=== PATIENT | female | born 1950 | race African-American/Black ===

== ENCOUNTER 2019-11-16 09:42 | Outpatient (REF) | payer MEDICARE, SELFPAY ==
[2019-11-16 11:29] LABS: Estimated Average Glucose 143 mg/dL; Hemoglobin A1c % 6.6 %
[2019-11-16 11:49] LABS: Alanine Aminotransferase 21 U/L (0-31); Albumin Level 4.2 g/dL (3.5-5.0); Alkaline Phosphatase 58 U/L (39-117); Anion Gap 13 (12-20); Aspartate Amino Transferase 24 U/L (5-31); Bilirubin Total 0.3 mg/dL (0.0-1.0); Blood Urea Nitrogen 21 mg/dL (9-16); Calcium 9.6 mg/dL (8.4-10.2); Carbon Dioxide 28 mmol/L (22-29); Chloride 106 mmol/L (96-108); Cholesterol 179 mg/dL; Estimated Glomerular Filt Rate 48; Glucose Fasting 115 mg/dL (60-99); HDL Cholesterol 78 mg/dL; LDL Cholesterol Calculated 89 mg/dl; Potassium 4.5 mmol/l (3.3-5.1); Sodium 142 mmol/L (135-145); Total Protein 6.8 g/dL (6.5-8.0); Triglycerides 62 mg/dL
== END 2019-11-16 09:43 | disposition home or self-care (01) ==
LOC: HO.HMGCLDS 09:42
PROVIDERS: PCP Nurse Practitioner Family; Visit Provider Nurse Practitioner Family
DX: E11.9 Type 2 diabetes mellitus without complications (principal)
CPT/HCPCS: 36415; 80053; 80061; 83036

== ENCOUNTER → 2020-01-04 15:08 | Outpatient (BNVA) | payer MEDICARE, SELFPAY | PROVIDERS: PCP Nurse Practitioner Family; Visit Provider Internal Medicine | DX: R07.2 Precordial pain (principal); I10 Essential (primary) hypertension; E11.8 Type 2 diabetes mellitus with unspecified complications; Z79.82 Long term (current) use of aspirin; Z79.84 Long term (current) use of oral hypoglycemic drugs; Z79.899 Other long term (current) drug therapy | CPT/HCPCS: 93005; 99212 ==

== ENCOUNTER → 2020-03-08 13:34 | Outpatient (BNVA) | payer MEDICARE, SELFPAY | PROVIDERS: PCP Nurse Practitioner Family; Visit Provider Internal Medicine Endocrinology, Diabetes & Metabolism | DX: E11.9 Type 2 diabetes mellitus without complications (principal); I10 Essential (primary) hypertension; E78.5 Hyperlipidemia, unspecified; E66.3 Overweight | CPT/HCPCS: 82947; 99212 ==

== ENCOUNTER 2020-05-10 07:59 | Outpatient (REF) | payer MEDICARE, SELFPAY ==
[2020-05-10 11:40] LABS: Alanine Aminotransferase 15 U/L (0-31); Alkaline Phosphatase 59 U/L (39-117); Anion Gap 14 (12-20); Aspartate Amino Transferase 19 U/L (5-31); Bilirubin Total 0.3 mg/dL (0.0-1.0); Blood Urea Nitrogen 12 mg/dL (9-16); Calcium 9.2 mg/dL (8.4-10.2); Carbon Dioxide 27 mmol/L (22-29); Chloride 107 mmol/L (96-108); Estimated Glomerular Filt Rate 56; Glucose Fasting 112 mg/dL (60-99); Potassium 4.4 mmol/L (3.3-5.1); Sodium 144 mmol/L (135-145); Total Protein 6.6 g/dL (6.5-8.0)
[2020-05-10 11:59] LABS: Creatinine Urine 139.02 mg/dL; Microalbum/Creatinine Ratio Ur 3.5 ug/mg cr
== END 2020-05-10 08:00 | disposition home or self-care (01) ==
LOC: HO.HMGCLDS 07:59
PROVIDERS: PCP Nurse Practitioner Family; Visit Provider Internal Medicine Endocrinology, Diabetes & Metabolism
DX: E11.9 Type 2 diabetes mellitus without complications (principal); R07.2 Precordial pain
CPT/HCPCS: 36415; 80053; 82043

== ENCOUNTER → 2020-05-23 11:03 | Outpatient (BNVA) | payer MEDICARE, SELFPAY | PROVIDERS: PCP Nurse Practitioner Family; Visit Provider Internal Medicine | DX: R07.2 Precordial pain (principal); E11.8 Type 2 diabetes mellitus with unspecified complications; I10 Essential (primary) hypertension | CPT/HCPCS: 99212 ==

== ENCOUNTER 2020-07-02 13:30 | Outpatient (REF) | payer MEDICARE, SELFPAY ==
[2020-07-02 17:07] LABS: Glucose Urine UA NEG (NEG); Leukocyte Esterase Urine NEG (NEG); Nitrite Urine NEG (NEG); PH 5.5 (5.0-8.0); Urine Blood NEG (NEG); Urine Ketones NEG (NEG); Urine Protein NEG (NEG-TRACE)
[2020-07-02 17:37] LABS: Creatinine Urine 100.51 mg/dL; Microalbumin Urine < 5.0 mg/L
[2020-07-02 17:39] LABS: Alanine Aminotransferase 21 U/L (0-31); Albumin Level 4.3 g/dL (3.5-5.0); Alkaline Phosphatase 57 U/L (39-117); Anion Gap 13 (12-20); Aspartate Amino Transferase 24 U/L (5-31); Bilirubin Total 0.4 mg/dL (0.0-1.0); Blood Urea Nitrogen 15 mg/dL (9-16); Carbon Dioxide 28 mmol/L (22-29); Chloride 104 mmol/L (96-108); Cholesterol 190 mg/dL; Estimated Glomerular Filt Rate 57; Glucose Fasting 102 mg/dL (60-99); HDL Cholesterol 79 mg/dL; LDL Cholesterol Calculated 99 mg/dl; Potassium 4.1 mmol/L (3.3-5.1); Sodium 141 mmol/L (135-145); Total Protein 7.2 g/dL (6.5-8.0); Triglycerides 64 mg/dL
[2020-07-02 17:58] LABS: Appearance Urine CLEAR; Color Urine YELLOW
[2020-07-02 18:00] LABS: TSH reflex Free T4 0.67 uIU/mL (0.32-4.0)
[2020-07-02 18:38] LABS: RBC Urine 0 /HPF (0); Squamous Epithelial Cell Urine 1+ /LPF; WBC Urine 0 /HPF (0-4)
[2020-07-03 07:45] LABS: Estimated Average Glucose 143 mg/dL; Hemoglobin A1c % 6.6 %
== END 2020-07-02 13:31 | disposition home or self-care (01) ==
LOC: HO.HMGCLDS 13:30
PROVIDERS: PCP Nurse Practitioner Family; Visit Provider Nurse Practitioner Family
DX: Z00.00 Encounter for general adult medical examination without abnormal findings (principal); E11.8 Type 2 diabetes mellitus with unspecified complications
CPT/HCPCS: 36415; 80053; 80061; 81001; 82043; 83036; 84443; 87086

== ENCOUNTER 2020-07-24 09:17 | Outpatient (REF) | payer MEDICARE, SELFPAY ==
[2020-07-25 09:39] LABS: BV Int Neg Control Negative (Negative); BV Int Pos Control Positive (Positive)
[2020-07-27 04:27] LABS: HPV mRNA E6/E7 rflx Not Detected (Not Detected)
== END 2020-07-24 09:18 | disposition home or self-care (01) ==
LOC: HO.LAB 09:17
PROVIDERS: PCP Nurse Practitioner Family; Visit Provider Obstetrics & Gynecology
DX: Z01.419 Encounter for gynecological examination (general) (routine) without abnormal findings (principal); Z11.51 Encounter for screening for human papillomavirus (HPV); N94.9 Unspecified condition associated with female genital organs and menstrual cycle
CPT/HCPCS: 81003; 87480; 87510; 87624; 87660; 88142

== ENCOUNTER → 2020-08-06 08:48 | Outpatient (BNVA) | payer MEDICARE, SELFPAY | PROVIDERS: PCP Nurse Practitioner Family; Visit Provider Obstetrics & Gynecology | DX: N95.8 Other specified menopausal and perimenopausal disorders (principal) | CPT/HCPCS: 99212 ==

== ENCOUNTER → 2020-09-03 08:18 | Outpatient (BNVA) | payer MEDICARE, SELFPAY | PROVIDERS: PCP Nurse Practitioner Family; Visit Provider Internal Medicine Endocrinology, Diabetes & Metabolism | DX: E11.9 Type 2 diabetes mellitus without complications (principal); I10 Essential (primary) hypertension; E78.5 Hyperlipidemia, unspecified; E66.3 Overweight | CPT/HCPCS: 82947; 99212 ==

== ENCOUNTER 2020-11-06 11:54 | Outpatient (REF) | payer MEDICARE, SELFPAY ==
--- NOTE | ~2020-11-06 | MM_ITS ---
EXAMINATION: BONE DENSITOMETRY CLINICAL INDICATION: Asymptomatic menopausal state. COMPARISON: Previous BD dated 08/31/2017 and baseline BD dated 08/29/2015. TECHNIQUE: Using a Scoopshot DXA System (software version: 13.1) manufactured by [employer], dual-energy x-ray absorptiometry was performed of the spine and left hip. The images are of good technical quality. Summary results are attached. FINDINGS: AP SPINE L1-L4: Current: BMD 1.518 g/cm2, Z-score 3.2, T-score 2.8, normal, 2.7% increase from previous, 0.6% decrease from baseline (<5% change is not significant). Prior: BMD 1.478 g/cm2. Baseline: BMD 1.527 g/cm2. LEFT FEMUR, NECK: Current: BMD 1.074 g/cm2, Z-score 0.7, T-score 0.3, normal. Prior: BMD 1.132 g/cm2. Baseline: BMD 1.059 g/cm2. LEFT FEMUR, TOTAL: Current: BMD 1.141 g/cm2, Z-score 1.1, T-score 1.1, normal, 0.9% decrease from previous, 4.0% decrease from baseline (<5% change is not significant). Prior: BMD 1.151 g/cm2. Baseline: BMD 1.189 g/cm2. IDENTIFIED RISK FACTORS: Menopause. HISTORY OF FRACTURE: None listed. MEDICATIONS: Vitamin D. MM/XR DEXA axial skeleton IMPRESSION: 1. DIAGNOSIS: Normal bone density based on the lowest T-score value of 0.3 in the femoral neck applying World Health Organization criteria. 2. 10-YEAR FRACTURE RISK PREDICTION, FRAX: Major osteoporotic fracture (clinical spine, forearm, hip or shoulder) 2.9%. Hip fracture 0.1%. 3. Treatment Recommendations: NOF guidelines recommend consideration for treatment in postmenopausal women and men age 50 and older presenting with the following: -A hip or vertebral (clinical or morphometric) fracture. -T-score less than or equal to -2.5 at the femoral neck or spine after appropriate evaluation to exclude secondary causes. -Low bone mass at the hip or spine and a 10-year fracture probability by FRAX of greater than or equal to 3% for hip fracture or greater than or equal to 20% for major osteoporotic fracture based on the [place] adapted WHO algorithm. 4. Other Recommendations: All treatment decisions require clinical judgment and consideration of individual patient factors, including patient preferences, comorbidities, previous drug use, risk factors not captured in the FRAX model (e.g. frailty, falls, vitamin D deficiency, increased bone turnover, interval significant decline in bone density) and possible under or overestimation of fracture risk by FRAX. FUTURE SCAN RECOMMENDATION: People with diagnosed cases of osteoporosis or at high risk for fracture should have regular bone mineral density tests. For patients eligible for Medicare, routine testing is allowed once every 2 years. The testing frequency can be increased to one year for patients who have rapidly progressing disease, those who are receiving or discontinuing medical therapy to restore bone mass, or have additional risk factors.
--- NOTE | ~2020-11-06 | MM_ITS ---
EXAMINATION: MM SCREENING DIGITAL BREAST TOMOSYNTHESIS, BILATERAL CLINICAL INFORMATION: Screening. Asymptomatic. The lifetime risk of breast cancer based on the Tyrer-Cuzick Model is 9.5%. COMPARISON: Mammography: September 15, 2019 and studies dating back to November 23, 2013 TECHNIQUE: Digital breast tomosynthesis is performed in both the craniocaudal and mediolateral oblique views along with computer-aided detection (CAD). Synthesized 2D images are generated from the tomosynthesis. FINDINGS: There are scattered areas of fibroglandular density (ACR BI-RADS breast composition Category b). There are no significant masses, abnormal calcifications, or other abnormalities. MM/MM tomosynthesis screening BI IMPRESSION: There are no significant changes from prior study. ASSESSMENT: BI-RADS 1: Negative RECOMMENDATION: Routine annual mammography screening. This patient's information was entered into a reminder system with a target due date for their next mammogram.
== END 2020-11-06 11:55 | disposition home or self-care (01) ==
LOC: HO.MAMMO 11:54
PROVIDERS: Visit Provider Nurse Practitioner Family
DX: Z12.31 Encounter for screening mammogram for malignant neoplasm of breast (principal); Z13.820 Encounter for screening for osteoporosis; Z78.0 Asymptomatic menopausal state; Z79.899 Other long term (current) drug therapy
CPT/HCPCS: 77063; 77067; 77080

== ENCOUNTER 2020-11-15 10:04 | Outpatient (REF) | payer MEDICARE, SELFPAY ==
[2020-11-15 12:09] LABS: Appearance Urine CLEAR; Color Urine YELLOW; Glucose Urine UA NEG (NEG); Leukocyte Esterase Urine NEG (NEG); Nitrite Urine NEG (NEG); Specific Gravity - Urine 1.015 (1.005-1.025); Urine Blood NEG (NEG); Urine Ketones NEG (NEG); Urine Protein NEG (NEG-TRACE)
[2020-11-15 13:09] LABS: Alanine Aminotransferase 17 U/L (0-31); Albumin Level 4.3 g/dL (3.5-5.0); Alkaline Phosphatase 62 U/L (39-117); Anion Gap 13 (12-20); Aspartate Amino Transferase 25 U/L (5-31); Bilirubin Total 0.4 mg/dL (0.0-1.0); Blood Urea Nitrogen 15 mg/dL (9-16); Calcium 9.9 mg/dL (8.4-10.2); Carbon Dioxide 29 mmol/L (22-29); Chloride 104 mmol/L (96-108); Cholesterol 166 mg/dL; Estimated Glomerular Filt Rate 51; Glucose Fasting 127 mg/dL (60-99); HDL Cholesterol 78 mg/dL; LDL Cholesterol Calculated 77 mg/dl; Potassium 4.7 mmol/L (3.3-5.1); Sodium 141 mmol/L (135-145); Total Protein 7.2 g/dL (6.5-8.0); Triglycerides 58 mg/dL
[2020-11-15 13:11] LABS: TSH reflex Free T4 1.02 uIU/mL (0.32-4.0)
[2020-11-15 14:02] LABS: Estimated Average Glucose 146 mg/dL; Hemoglobin A1c % 6.7 %
== END 2020-11-15 10:05 | disposition home or self-care (01) ==
LOC: HO.HMGCLDS 10:04
PROVIDERS: PCP Nurse Practitioner Family; Visit Provider Nurse Practitioner Family
DX: E11.8 Type 2 diabetes mellitus with unspecified complications (principal)
CPT/HCPCS: 36415; 80053; 80061; 81003; 83036; 84443

== ENCOUNTER 2021-01-02 15:25 | Emergency (ER) | payer MEDICARE, OTHER, SELFPAY ==
[2021-01-02 16:35] VITALS: BP 109/49; PULSE 75; RESP 19; TEMP 36.3; O2SAT 98; BMI 32.9
[2021-01-02 17:04] LABS: MANUAL DIFF FLAG NO
[2021-01-02 17:12] LABS: Basophils Percent Auto 0.5 % (0-2); Eosinophils Absolute Auto 0.1 X10*3/uL (0.0-0.4); Eosinophils Percent Auto 1.4 % (0-4); Hematocrit 39.5 % (37.0-47.0); Hemoglobin 12.7 g/dl (12.0-16.0); Imm Gran Abs Auto 0.02 X10*3/uL (0.00-0.03); Imm Gran Pct Auto 0.3 % (0.0-0.4); Lymphocytes Absolute Auto 1.8 X10*3/uL (1.2-4.9); Mean Corpuscular HGB Conc 32.2 g/dl (31.0-35.0); Mean Corpuscular Hemoglobin 29.4 pg (27.0-33.0); Mean Corpuscular Volume 91.4 fL (80.0-98.0); Mean Platelet Volume 10.1 fL (9.4-12.3); Monocytes Absolute Auto 0.5 X10*3/uL (0.1-1.2); Monocytes Percent Auto 7.6 % (2-11); Neutrophils Percent Auto 62.2 % (45-73); Platelet Count 262 X10*3/uL (160-400); Red Blood Count 4.32 X10*6/uL (4.20-5.50); Red Cell Distribution Width 15.1 % (11.0-16.0); White Blood Count 6.5 X10*3/uL (4.8-10.8)
[2021-01-02 17:34] LABS: Alanine Aminotransferase 21 U/L (0-31); Albumin Level 4.1 g/dL (3.5-5.0); Alkaline Phosphatase 62 U/L (39-117); Anion Gap 11 (12-20); Aspartate Amino Transferase 28 U/L (5-31); Bilirubin Total 0.2 mg/dL (0.0-1.0); Blood Urea Nitrogen 13 mg/dL (9-16); Calcium 10.3 mg/dL (8.4-10.2); Carbon Dioxide 28 mmol/L (22-29); Chloride 104 mmol/L (96-108); Estimated Glomerular Filt Rate 53; Glucose Random 119 mg/dL (60-115); Potassium 4.1 mmol/L (3.3-5.1); Sodium 139 mmol/L (135-145); Total Protein 6.8 g/dL (6.5-8.0)
[2021-01-02 19:15] LABS: Appearance Urine CLEAR; Color Urine YELLOW; Glucose Urine UA NEG (NEG); Leukocyte Esterase Urine NEG (NEG); Nitrite Urine NEG (NEG); Specific Gravity - Urine <= 1.005 (1.005-1.025); Urine Blood NEG (NEG); Urine Ketones NEG (NEG); Urine Protein NEG (NEG-TRACE)
[2021-01-02 20:42] VITALS: BP 125/63; PULSE 74; RESP 18; TEMP 36.5; O2SAT 99
--- NOTE | 2021-01-02 21:00 | ED_ITS ---
HPI - Abdominal Pain General Chief Complaint: Abdominal Pain Stated Complaint: Abdominal pain Time Seen by Provider: 01/02/21 21:00 Source: patient Mode of arrival: ambulatory Limitations: no limitations History of Present Illness HPI narrative: patient with epigastric pain for one month was seen in [facility] and was sent into the ED. Patient had some weight loss. Patient had ectopic and history of appendicitis as her surgeries. MD elicited complaint: abdominal pain Onset (ago): month(s) Pain Consistency: intermittent Location: epigastric and RUQ Severity: mild Quality: cramping Associated symptoms: denies other symptoms Related Data Home Medications Medication Instructions Recorded Confirmed aspirin 81 mg tablet,delayed 81 mg PO DAILY 01/04/20 09/03/20 release estradiol 10 mcg vaginal tablet mcg VAGINAL 10/01/20 Previous Rx's Medication Instructions Recorded DomeeTouch Verio test strips (blood #300 ea NS 03/08/20 sugar diagnostic) lancets 33 gauge (OneTouch Delica #300 ea 03/08/20 Lancets) conjugated estrogens 0.625 mg/gram 0.625 mg VAGINAL 3XW 30 Days #30 g 05/20/20 vaginal cream (Premarin) fluticasone propionate 50 1 spray INTRANASAL DAILY #16 g 05/20/20 mcg/actuation nasal spray,suspension gabapentin 100 mg capsule 100 mg PO DAILY 30 Days #30 cap 07/22/20 estradiol 10 mcg vaginal insert 10 mcg VAGINAL DAILY 14 Days #8 08/06/20 insert ezetimibe 10 mg tablet 10 mg PO DAILY 90 Days #90 tab 09/03/20 pioglitazone 45 mg tablet 45 mg PO DAILY #90 tab 09/03/20 sitagliptin 50 mg-metformin ER 2 tab PO DAILY 90 Days #180 tab 09/03/20 1,000 mg tablet,extended release 24h mp hydrocortisone 2.5 % topical cream 1 appl MO BID PRN 14 Days #20 g 11/17/20 losartan 50 mg tablet 50 mg PO DAILY 90 Days #90 tab 11/29/20 pantoprazole 40 mg tablet,delayed 40 mg PO DAILY #20 tab 01/02/21 release (Protonix) Allergies Allergy/AdvReac Type Severity Reaction Status Date / Time Penicillins [PENICILLINS] Allergy Unknown UNKNOWN Verified 01/01/21 16:12 canagliflozin [Invokana] AdvReac Unknown unknown Verified 01/01/21 16:12 statins Allergy Unknown muscle Uncoded 07/02/20 13:10 aches Review of Systems Constitutional: Reports no additional constitutional complaints Eyes: Reports no additional eye complaints Denies dizziness Cardiovascular: Reports no additional cardiovascular complaints Respiratory: Reports as per HPI Gastrointestinal: Reports no additional gastrointestinal complaints Genitourinary: Reports no additional female genitourinary complaints Musculoskeletal: Reports no additional musculoskeletal complaints Skin/Breast: Denies rash Reports system reviewed and no additional complaints, except as documented, Denies dizziness and Denies Sensory deficit (Neuro) Psychiatric: Denies anxiety Physical Exam Vital Signs: Vital Signs: Last Vital Signs Temp 97.7 F 01/02/21 20:42 Pulse 74 01/02/21 20:42 Resp 18 01/02/21 20:42 BP 125/63 01/02/21 20:42 Pulse Ox 99 01/02/21 20:42 Body Mass Index 32.9 Const: General: healthy appearing Nutritional Appearance: average body habitus Orientation/consciousness: oriented to person and patient oriented x3 Limitations: no limitations HENMT: Head: Yes normal to inspection Ears: external ears normal General nose exam: Normal external nose present Mouth: Normal oral and palatal mucosa present and oropharynx normal Throat: Yes posterior oropharynx normal Eyes: General: appearance normal, both eyes and all related structures Neck: Other: supple Neck: Yes normal visual inspection Chest: Chest palpation & inspection: normal inspection of the chest Resp: Auscultation: clear to auscultation bilaterally Cardio: Jugular venous distension: no JVD Rate: regular rate Rhythm: regular rhythm Heart sounds: S1 normal heart sound present and S2 normal heart sound present GI: Other: nontender abdomen Inspection: Yes normal to inspection Palpation (GI): Soft to palpation, nontender and No hepatosplenomegaly present Auscultation: normal bowel sounds : General: Yes no CVA tenderness Back/Spine/Pelvis: Back: no CVA tenderness Skin: General skin exam: no rashes or lesions noted Neuro: General: oriented to person and patient oriented x3 Cranial nerves: Yes CN's II-XII intact bilaterally Motor exam (neuro): 5/5 motor strength present throughout Sensory Exam: No Sensory deficit (Neuro) Extrem: General: Yes normal to inspection Psych: Appearance: grossly normal Course Reevaluation(s) Reevaluation #1: bedside ultrasound negative for Gallstones. patient was recently on NSAIDs for dental work, possible gastritis, will treat with protonix Time: 21:14 MDM - Abdominal Pain Lab Data Result diagrams: 01/02/21 17:00 01/02/21 17:00 Labs: Lab Results 01/02/21 01/02/21 01/02/21 Range/Units 17:00 17:00 18:59 WBC 6.5 (4.8-10.8) X10*3/uL RBC 4.32 (4.20-5.50) X10*6/uL Hgb 12.7 (12.0-16.0) g/dl Hct 39.5 (37.0-47.0) % MCV 91.4 (80.0-98.0) fL MCH 29.4 (27.0-33.0) pg MCHC 32.2 (31.0-35.0) g/dl RDW 15.1 (11.0-16.0) % Plt Count 262 (160-400) X10*3/uL MPV 10.1 (9.4-12.3) fL Immature Gran % (Auto) 0.3 (0.0-0.4) % Neut % (Auto) 62.2 (45-73) % Lymph % (Auto) 28.0 (20-40) % [place] % (Auto) 7.6 (2-11) % Eos % (Auto) 1.4 (0-4) % Baso % (Auto) 0.5 (0-2) % Lymph # (Auto) 1.8 (1.2-4.9) X10*3/uL [place] # (Auto) 0.5 (0.1-1.2) X10*3/uL Eos # (Auto) 0.1 (0.0-0.4) X10*3/uL Baso # (Auto) 0.0 (0.0-0.2) X10*3/uL Abs Immat Gran (auto) 0.02 (0.00-0.03) X10*3/uL Absolute Neuts (auto) 4.0 (2.0-8.3) x10*3/uL Absolute Nucleated RBC 0.000 (0.0-0.012) X10*3/uL Nucleated RBC % (auto) 0.0 (0.0-0.2) /100WBC Sodium 139 (135-145) mmol/L Potassium 4.1 (3.3-5.1) mmol/L Chloride 104 (96-108) mmol/L Carbon Dioxide 28 (22-29) mmol/L Anion Gap 11 L (12-20) BUN 13 (9-16) mg/dL Creatinine 1.03 (0.5-1.4) mg/dL Estim Creat Clear Calc 51.0 Estimated GFR 53 Random Glucose 119 H (60-115) mg/dL Calcium 10.3 H (8.4-10.2) mg/dL Total Bilirubin 0.2 (0.0-1.0) mg/dL AST 28 (5-31) U/L ALT 21 (0-31) U/L Alkaline Phosphatase 62 (39-117) U/L Total Protein 6.8 (6.5-8.0) g/dL Albumin 4.1 (3.5-5.0) g/dL Urine Color YELLOW Urine Appearance CLEAR Urine pH 6.0 (5.0-8.0) Ur Specific [place] <= 1.005 (1.005-1.025) Urine Protein NEG (NEG-TRACE) MG/DL Urine Glucose (UA) NEG (NEG) MG/DL Urine Ketones NEG (NEG) MG/DL Urine Blood NEG (NEG) Urine Nitrite NEG (NEG) Ur Leukocyte Esterase NEG (NEG) Discharge Plan Discharge Clinical Impression: Gastritis Qualifiers: Gastritis type: unspecified gastritis Chronicity: unspecified Gastritis bleeding: without bleeding Qualified Code(s): K29.70 - Gastritis, unspecified, without bleeding Patient Disposition: Home, Self-Care Instructions: Gastritis (ED) Prescriptions: New pantoprazole [Protonix] 40 mg tablet,delayed release (DR/EC) 40 mg PO DAILY Qty: 20 RF: 0 No Action Premarin 0.625 mg/gram cream 0.625 mg vaginal 3XW 30 Days Qty: 30 RF: 1 fluticasone propionate 50 mcg/actuation spray,suspension 1 spray intranasal DAILY Qty: 16 RF: 1 gabapentin 100 mg capsule 100 mg PO DAILY 30 Days Qty: 30 RF: 3 hydrocortisone 2.5 % cream 1 appl MO BID PRN (Reason: skin irritation) 14 Days Qty: 20 RF: 1 losartan 50 mg tablet 50 mg PO DAILY 90 Days Qty: 90 RF: 1 estradiol 10 mcg tablet vaginal RF: 0 (DME) lancets [OneTouch Delica Lancets] 33 gauge misc See Rx Instructions .ROUTE .MEDSUPPLY Qty: 300 RF: 2 (DME) OneTouch Verio test strips Strip See Rx Instructions strip .ROUTE .MEDSUPPLY Qty: 300 RF: 3 aspirin 81 mg tablet,delayed release (DR/EC) 81 mg PO DAILY RF: 0 estradiol 10 mcg insert 10 mcg vaginal DAILY 14 Days Qty: 8 RF: 11 ezetimibe 10 mg tablet 10 mg PO DAILY 90 Days Qty: 90 RF: 1 pioglitazone 45 mg tablet 45 mg PO DAILY Qty: 90 RF: 2 sitagliptin-metformin 50-1,000 mg tablet, ER multiphase 24 hr 2 tab PO DAILY 90 Days Qty: 180 RF: 2 Referrals: Jacob Martinez FNP- [Primary Care Provider] - 1 week [facility] Past Medical History Medical History Diabetes type 2, controlled Dyslipidemia Essential hypertension Overweight (BMI 25.0-29.9) Type 2 diabetes mellitus with unspecified complications Surgical History History of appendectomy Hx of tubal ligation Family History Family History Father Heart disease Mother Heart disease Social History Social History Housing: House Alcohol intake: never Patient Tobacco Use Status: Never used Tobacco Advance Directives: No Advance Directives Information Provided: No Current occupational status: retired Gender identity: Female
[2021-01-02 21:58] VITALS: BP 117/58; PULSE 76; RESP 16; O2SAT 98
[2021-01-02] MEDS: Famotidine 20 MG TABLET PO (21:58)
== END 2021-01-02 22:00 | disposition home or self-care (01) ==
PROVIDERS: Emergency Provider Emergency Medicine; PCP Nurse Practitioner Family
DX: K29.70 Gastritis, unspecified, without bleeding (principal); R10.13 Epigastric pain; E11.9 Type 2 diabetes mellitus without complications; E78.5 Hyperlipidemia, unspecified; I10 Essential (primary) hypertension
CPT/HCPCS: 36415; 80053; 81003; 85025; 99283; 99284

== ENCOUNTER → 2021-03-10 09:18 | Outpatient (REF) | payer MEDICARE, OTHER, SELFPAY ==
--- NOTE | 2021-03-10 09:21 | CA_ITS ---
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 Normal LV systolic function with mild LVH with impaired relaxation filling pattern 2. Normal cardiac valvular Doppler 3. Normal RV systolic pressure 4. No gross pericardial effusion Findings Left Ventricle Normal left ventricular size and systolic function. There is mildly increased left ventricular wall thickness. The visually estimated ejection fraction is between 60-65%. Spectral Doppler is indicative of an impaired relaxation filling pattern. E/E prime ratio is between 8 and 15 consistent with indeterminate filling pressures. Right Ventricle Normal right ventricular cavity size and systolic function. Atria The left atrium is normal in size. There is no evidence of interatrial shunt. The right atrium is normal in size. Aortic Valve Normal aortic valve structure and function. There is no aortic valve stenosis. There is no aortic valve regurgitation. Mitral Valve Normal mitral valve structure and function. There is trace mitral valve regurgitation. There is no mitral valve stenosis. Pulmonic Valve The pulmonic valve is likely normal. Tricuspid Valve Normal tricuspid valve structure. There is trace tricuspid valve regurgitation. The right ventricular systolic pressure is normal. The right ventricular systolic pressure is 31 mmHg. Normal right atrial pressure. There is no evidence of pulmonary hypertension. Great Vessels All visible segments of the aorta are normal in size. The pulmonary artery was not well visualized. Venous The inferior vena cava is normal in size and collapses greater than 50% with inspiration. Pericardium/Pleural There is no evidence of pericardial effusion. Prior Study Comparison No significant change compared to prior study dated: 06/28/2018. Measurements 2D Linear Measurements IVSd: 1.24 0.6-0.9/0.6-1.0 cm LVIDd: 3.46 3.9-5.3/4.2-5.9 cm LVIDd Index: 1.85 2.4-3.2/2.2-3.1 cm/m2 LVIDs: 2.24 2.0-3.6 cm LVPWd: 1.28 0.7-1.1 cm Ao Root: 3.10 2.1-3.5 cm LA Diam: 3.40 2.7-3.8/3.0-4.0 cm LAIDs Index: 1.82 1.5-2.3 cm/m2 LV Mass: 179.32 67-162/88-224 g LV Mass Index: 95.89 43-95/49-115 g/m2 LVOT Diam: 2.00 3.0+(-)1.3 cm 2D Systolic Function EF 4C: 55.90 >55% EF 2C: 57.40 >55% EF BiP: 56.60 >55% Mitral Valve MV Pk E: 0.81 MV PK A: 0.99 MV Decel Time: 196.00 E/A: 0.80 E'Lateral: 7.40 E'Medial: 5.55 E/E' Med: 14.50 E/E' Lat: 10.90 PHT: 57.00 MVA PHT: 3.86 Decel [place]: 4.12 Aortic Valve AoV Pk Frankie: 1.46 AoV Mn Frankie: 0.91 AoV VTI: 0.32 AoV Pk Grad: 9.00 Aov Mn Grad: 4.00 RAJEEV Cont.VTI: 2.67 LVOT LVOT Pk Frankie: 1.11 LVOT Mn Frankie: 0.67 LVOT VTI: 0.27 LVOT Pk Grad: 5.00 LVOT Mn Grad: 2.00 LVOT Diam: 2.00 LVOT Area: 3.14 Diastolic Function MV Pk E: 0.81 MV Pk A: 0.99 E/A: 0.80 E'Medial: 5.55 E/E' Med: 14.50 E' Laterial: 7.40 E/E' Lat: 10.90 Right Ventricle TAPSE (mm): 24.00 TVS' Frankie: 12.00 Tricuspid Valve TR Pk Frankie: 2.63 TR Pk Grad: 28.00 RA Press: 3.00 RVSP: 31.00 Great Vessels Aorta Ao Root-2D: 3.10 2.0-3.7 cm Ao Asc: 3.10 2.1-3.4 cm Ao Arch: 3.40 Pulmonary Valve PV Pk Frankie: 1.09 Peak PV Grad: 5.00 Updated in Other Vendor System with Status of Final Jairon Blackburn MD electronically signed on 03/11/2021 8:58:50 AM with status of Final
== END ==
LOC: HO.CARD 09:18
PROVIDERS: Visit Provider Nurse Practitioner Family
DX: R01.1 Cardiac murmur, unspecified (principal)
CPT/HCPCS: 93306

== ENCOUNTER 2021-05-05 11:23 | Outpatient (REF) | payer MEDICARE, SELFPAY ==
[2021-05-05 14:06] LABS: Appearance Urine CLEAR; Color Urine YELLOW; Glucose Urine UA NEG (NEG); Leukocyte Esterase Urine NEG (NEG); Nitrite Urine NEG (NEG); Specific Gravity - Urine 1.025 (1.005-1.025); Urine Blood NEG (NEG); Urine Ketones NEG (NEG); Urine Protein NEG (NEG-TRACE)
[2021-05-05 14:21] LABS: Alanine Aminotransferase 16 U/L (0-31); Albumin Level 4.1 g/dL (3.5-5.0); Alkaline Phosphatase 57 U/L (39-117); Anion Gap 11 (12-20); Aspartate Amino Transferase 22 U/L (5-31); Bilirubin Total 0.4 mg/dL (0.0-1.0); Blood Urea Nitrogen 14 mg/dL (9-16); Carbon Dioxide 29 mmol/L (22-29); Chloride 104 mmol/L (96-108); Cholesterol 178 mg/dL; Estimated Glomerular Filt Rate 54; Glucose Fasting 114 mg/dL (60-99); HDL Cholesterol 71 mg/dL; LDL Cholesterol Calculated 92 mg/dl; Potassium 4.1 mmol/L (3.3-5.1); Sodium 140 mmol/L (135-145); Total Protein 6.9 g/dL (6.5-8.0); Triglycerides 77 mg/dL
[2021-05-05 14:45] LABS: TSH reflex Free T4 0.91 uIU/mL (0.32-4.0); Vitamin D 25-OH Total 48.9 ng/mL (>30)
== END 2021-05-05 11:24 | disposition home or self-care (01) ==
LOC: HO.HMGCLDS 11:23
PROVIDERS: Visit Provider Nurse Practitioner Family
DX: E11.9 Type 2 diabetes mellitus without complications (principal)
CPT/HCPCS: 36415; 80053; 80061; 81003; 82306; 84443

== ENCOUNTER 2021-07-04 16:42 | Outpatient (REF) | payer OTHER, SELFPAY | END 2021-07-04 16:43 | disposition home or self-care (01) | LOC: HO.LNP 16:42 | PROVIDERS: Visit Provider Internal Medicine | DX: N39.0 Urinary tract infection, site not specified (principal) | CPT/HCPCS: 87086 ==

== ENCOUNTER 2021-07-29 11:06 | Outpatient (REF) | payer MEDICARE, SELFPAY ==
[2021-07-29 13:41] LABS: Appearance Urine CLEAR; Color Urine STRAW; Glucose Urine UA NEG (NEG); Leukocyte Esterase Urine NEG (NEG); Nitrite Urine NEG (NEG); Specific Gravity - Urine <= 1.005 (1.005-1.025); Urine Blood NEG (NEG); Urine Ketones NEG (NEG); Urine Protein NEG (NEG-TRACE)
== END 2021-07-29 11:07 | disposition home or self-care (01) ==
LOC: HO.HMGCLDS 11:06
PROVIDERS: PCP Nurse Practitioner Family; Visit Provider Nurse Practitioner Family
DX: N30.90 Cystitis, unspecified without hematuria (principal)
CPT/HCPCS: 81003; 87086

== ENCOUNTER 2021-08-06 10:46 | Outpatient (REF) | payer MEDICARE, SELFPAY ==
[2021-08-07 08:38] LABS: BV Int Neg Control Negative (Negative); BV Int Pos Control Positive (Positive)
== END 2021-08-06 10:47 | disposition home or self-care (01) ==
LOC: HO.LAB 10:46
PROVIDERS: Visit Provider Advanced Practice Midwife
DX: N76.0 Acute vaginitis (principal); N94.9 Unspecified condition associated with female genital organs and menstrual cycle; R10.2 Pelvic and perineal pain
CPT/HCPCS: 81003; 87480; 87510; 87660; 99212

== ENCOUNTER 2021-08-13 09:15 | Outpatient (REF) | payer MEDICARE, SELFPAY ==
[2021-08-13 11:14] LABS: MANUAL DIFF FLAG NO
[2021-08-13 11:18] LABS: Basophils Absolute Auto 0.1 X10*3/uL (0.0-0.2); Basophils Percent Auto 0.8 % (0-2); Eosinophils Absolute Auto 0.1 X10*3/uL (0.0-0.4); Eosinophils Percent Auto 0.8 % (0-4); Hematocrit 40.3 % (37.0-47.0); Hemoglobin 12.9 g/dl (12.0-16.0); Imm Gran Abs Auto 0.03 X10*3/uL (0.00-0.03); Imm Gran Pct Auto 0.5 % (0.0-0.4); Lymphocytes Absolute Auto 1.6 X10*3/uL (1.2-4.9); Lymphocytes Percent Auto 24.7 % (20-40); Mean Corpuscular Hemoglobin 29.9 pg (27.0-33.0); Mean Corpuscular Volume 93.3 fL (80.0-98.0); Mean Platelet Volume 10.4 fL (9.4-12.3); Monocytes Absolute Auto 0.4 X10*3/uL (0.1-1.2); Monocytes Percent Auto 6.6 % (2-11); Neutrophils Absolute Auto 4.3 x10*3/uL (2.0-8.3); Neutrophils Percent Auto 66.6 % (45-73); Platelet Count 264 X10*3/uL (160-400); Red Blood Count 4.32 X10*6/uL (4.20-5.50); Red Cell Distribution Width 14.4 % (11.0-16.0); White Blood Count 6.5 X10*3/uL (4.8-10.8)
[2021-08-13 11:19] LABS: Appearance Urine CLEAR; Color Urine YELLOW; Glucose Urine UA NEG (NEG); Leukocyte Esterase Urine NEG (NEG); Nitrite Urine NEG (NEG); Specific Gravity - Urine 1.015 (1.005-1.025); Urine Blood NEG (NEG); Urine Ketones NEG (NEG); Urine Protein NEG (NEG-TRACE)
[2021-08-13 11:54] LABS: TSH reflex Free T4 1.04 uIU/mL (0.32-4.0)
[2021-08-13 11:59] LABS: Alanine Aminotransferase 22 U/L (0-31); Albumin Level 4.2 g/dL (3.5-5.0); Alkaline Phosphatase 63 U/L (39-117); Anion Gap 12 (12-20); Aspartate Amino Transferase 27 U/L (5-31); Bilirubin Total 0.3 mg/dL (0.0-1.0); Blood Urea Nitrogen 14 mg/dL (9-16); Calcium 10.1 mg/dL (8.4-10.2); Carbon Dioxide 30 mmol/L (22-29); Chloride 105 mmol/L (96-108); Cholesterol 171 mg/dL; Estimated Glomerular Filt Rate 52; Glucose Fasting 143 mg/dL (60-99); HDL Cholesterol 78 mg/dL; LDL Cholesterol Calculated 77 mg/dl; Potassium 4.3 mmol/L (3.3-5.1); Sodium 143 mmol/L (135-145); Triglycerides 82 mg/dL
[2021-08-13 12:02] LABS: Estimated Average Glucose 143 mg/dL; Hemoglobin A1c % 6.6 %
[2021-08-13 12:07] LABS: Creatinine Urine 111.51 mg/dL; Microalbumin Urine < 5.0 mg/L
== END 2021-08-13 09:16 | disposition home or self-care (01) ==
LOC: HO.HMGCLDS 09:15
PROVIDERS: PCP Nurse Practitioner Family; Visit Provider Nurse Practitioner Family
DX: E11.8 Type 2 diabetes mellitus with unspecified complications (principal)
CPT/HCPCS: 36415; 80053; 80061; 81003; 82043; 83036; 84443; 85025

== ENCOUNTER 2021-11-07 14:46 | Outpatient (REF) | payer MEDICARE, SELFPAY ==
--- NOTE | ~2021-11-07 | MM_ITS ---
EXAMINATION: MM SCREENING DIGITAL BREAST TOMOSYNTHESIS, BILATERAL CLINICAL INFORMATION: Screening. Asymptomatic. Family history breast cancer, sister. The lifetime risk of breast cancer based on the Tyrer-Cuzick Model is 6%. COMPARISON: Mammography: 11/06/2020, 09/15/2019, 05/31/2018 TECHNIQUE: Digital breast tomosynthesis is performed in both the craniocaudal and mediolateral oblique views along with computer-aided detection (CAD). Synthesized 2D images are generated from the tomosynthesis. FINDINGS: There are scattered areas of fibroglandular density (ACR BI-RADS breast composition Category b). There are no significant masses, abnormal calcifications, or other abnormalities. Parenchymal pattern is similar to prior studies. No developing density or architectural abnormality. The axilla and skin contours are unremarkable. MM/MM tomosynthesis screening BI IMPRESSION: No mammographic evidence of malignancy. ASSESSMENT: BI-RADS 1: Negative RECOMMENDATION: Routine annual mammography screening. This patient's information was entered into a reminder system with a target due date for their next mammogram.
== END 2021-11-07 14:47 | disposition home or self-care (01) ==
LOC: HO.MAMMO 14:46
PROVIDERS: PCP Nurse Practitioner Family; Visit Provider Nurse Practitioner Family
DX: Z12.31 Encounter for screening mammogram for malignant neoplasm of breast (principal)
CPT/HCPCS: 77063; 77067

== ENCOUNTER 2021-12-19 10:46 | Outpatient (REF) | payer MEDICARE, SELFPAY ==
[2021-12-19 13:59] LABS: MANUAL DIFF FLAG NO
[2021-12-19 14:04] LABS: Basophils Percent Auto 0.7 % (0-2); Eosinophils Percent Auto 0.7 % (0-4); Hematocrit 38.9 % (37.0-47.0); Hemoglobin 12.5 g/dl (12.0-16.0); Imm Gran Abs Auto 0.05 X10*3/uL (0.00-0.03); Imm Gran Pct Auto 0.8 % (0.0-0.4); Lymphocytes Absolute Auto 1.6 X10*3/uL (1.2-4.9); Lymphocytes Percent Auto 26.2 % (20-40); Mean Corpuscular HGB Conc 32.1 g/dl (31.0-35.0); Mean Corpuscular Hemoglobin 29.5 pg (27.0-33.0); Mean Corpuscular Volume 91.7 fL (80.0-98.0); Mean Platelet Volume 10.7 fL (9.4-12.3); Monocytes Absolute Auto 0.4 X10*3/uL (0.1-1.2); Monocytes Percent Auto 6.5 % (2-11); Neutrophils Absolute Auto 3.9 x10*3/uL (2.0-8.3); Neutrophils Percent Auto 65.1 % (45-73); Platelet Count 248 X10*3/uL (160-400); Red Blood Count 4.24 X10*6/uL (4.20-5.50); Red Cell Distribution Width 14.7 % (11.0-16.0)
[2021-12-19 14:17] LABS: Appearance Urine Clear; Color Urine Yellow; Glucose Urine UA Negative (Negative); Leukocyte Esterase Urine Negative (Negative); Nitrite Urine Negative (Negative); Urine Blood Negative (Negative); Urine Ketones Negative (Negative); Urine Protein Negative (Neg-Trace)
[2021-12-19 14:35] LABS: Alanine Aminotransferase 20 U/L (0-31); Albumin Level 4.3 g/dL (3.5-5.0); Alkaline Phosphatase 56 U/L (39-117); Anion Gap 15 (12-20); Aspartate Amino Transferase 26 U/L (5-31); Bilirubin Total 0.4 mg/dL (0.0-1.0); Blood Urea Nitrogen 16 mg/dL (9-16); Calcium 9.9 mg/dL (8.4-10.2); Carbon Dioxide 27 mmol/L (22-29); Chloride 103 mmol/L (96-108); Cholesterol 175 mg/dL; Estimated Glomerular Filt Rate 50; Glucose Fasting 122 mg/dL (60-99); HDL Cholesterol 81 mg/dL; LDL Cholesterol Calculated 83 mg/dl; Potassium 4.4 mmol/L (3.3-5.1); Sodium 141 mmol/L (135-145); Total Protein 6.9 g/dL (6.5-8.0); Triglycerides 55 mg/dL
[2021-12-19 14:47] LABS: TSH reflex Free T4 0.73 uIU/mL (0.32-4.0)
[2021-12-19 15:05] LABS: Estimated Average Glucose 137 mg/dL; Hemoglobin A1c % 6.4 %
== END 2021-12-19 10:47 | disposition home or self-care (01) ==
LOC: HO.HMGCLDS 10:46
PROVIDERS: PCP Nurse Practitioner Family; Visit Provider Nurse Practitioner Family
DX: E11.9 Type 2 diabetes mellitus without complications (principal)
CPT/HCPCS: 36415; 80053; 80061; 81003; 83036; 84443; 85025

== ENCOUNTER 2022-02-20 11:47 | Emergency (ER) | payer MEDICARE, OTHER, SELFPAY ==
--- NOTE | ~2022-02-20 | XR_ITS ---
EXAMINATION: XR CHEST CLINICAL INFORMATION: Chest pain COMPARISON: None TECHNIQUE: 2 views of the chest were obtained. FINDINGS: The lungs are well expanded. Mild elevation of the right hemidiaphragm. There is no focal consolidation, edema, or effusion. No pneumothorax. The cardiomediastinal silhouette is within normal limits. No acute osseous abnormality. Mild degenerative changes of the spine. XR/XR chest 2V IMPRESSION: Clear lungs.
[2022-02-20 12:05] VITALS: BP 133/68; PULSE 67; RESP 18; TEMP 36.5; O2SAT 98; BMI 34.7
--- NOTE | 2022-02-20 12:13 | ECG_ITS ---
Test Reason : CHEST PAIN Blood Pressure : / mmHG Vent. Rate : 074 BPM Atrial Rate : 074 BPM P-R Int : 152 ms QRS Dur : 078 ms QT Int : 344 ms P-R-T Axes : 052 001 035 degrees QTc Int : 381 ms Normal sinus rhythm Possible Left atrial enlargement Borderline ECG When compared with ECG of 29-MAY-2003 10:52, No significant change was found Referred By: Generic ED Physician Electronically Signed By:NIVIA MONTANA
[2022-02-20 12:39] LABS: MANUAL DIFF FLAG NO
[2022-02-20 12:40] LABS: Basophils Percent Auto 0.5 % (0-2); Eosinophils Absolute Auto 0.1 X10*3/uL (0.0-0.4); Eosinophils Percent Auto 0.8 % (0-4); Hematocrit 39.5 % (37.0-47.0); Hemoglobin 12.7 g/dl (12.0-16.0); Imm Gran Abs Auto 0.02 X10*3/uL (0.00-0.03); Imm Gran Pct Auto 0.3 % (0.0-0.4); Lymphocytes Absolute Auto 1.5 X10*3/uL (1.2-4.9); Lymphocytes Percent Auto 24.8 % (20-40); Mean Corpuscular HGB Conc 32.2 g/dl (31.0-35.0); Mean Corpuscular Hemoglobin 29.3 pg (27.0-33.0); Mean Corpuscular Volume 91.2 fL (80.0-98.0); Mean Platelet Volume 9.6 fL (9.4-12.3); Monocytes Absolute Auto 0.3 X10*3/uL (0.1-1.2); Monocytes Percent Auto 5.4 % (2-11); Neutrophils Absolute Auto 4.2 x10*3/uL (2.0-8.3); Neutrophils Percent Auto 68.2 % (45-73); Platelet Count 245 X10*3/uL (160-400); Red Blood Count 4.33 X10*6/uL (4.20-5.50); Red Cell Distribution Width 14.4 % (11.0-16.0); White Blood Count 6.2 X10*3/uL (4.8-10.8)
--- NOTE | 2022-02-20 13:01 | ED_ITS ---
HPI - Chest Pain General Chief Complaint: Chest Pain Stated Complaint: chest pain Time Seen by Provider: 02/20/22 12:54 Source: patient Mode of arrival: ambulatory Limitations: no limitations History of Present Illness HPI narrative: Patient is a 71 year old assigned female at with a history of DM and HTN presenting to the emergency department today with chest pain. Patient states that since 02/18/2022 she has had intermittent chest pain. Patient states that she was evaluated by her PCP but they recommended she come here for a true cardiac work up. Patient denies any current dizziness, lightheadedness, ab dominal pain, nausea, vomiting, fever, chills, blurry vision, double vision, loss of vision, chest pain, difficulty breathing, shortness of breath, back pain, night sweats, pain with urination, increased urinary frequency, increased urinary urgency, blood in her urine or stool, syncope or a near syncopal episode, recent trauma or falls, bowel incontinence, bladder incontinence, bowel retention, bladder retention, or any other complaints at this time. MD complaint: chest pain Onset (ago): day(s) (2) Pain radiation: none Severity: mild Pain scale (0-10): 3 Quality: dull Treatment prior to arrival: none Related Data Home Medications Medication Instructions Recorded Confirmed aspirin 81 mg tablet,delayed 81 mg PO DAILY 01/04/20 11/20/21 release prednisolone acetate 1 % eye 0 drp ophthalmic (eye) 11/20/21 11/20/21 drops,suspension Previous Rx's Medication Instructions Recorded dexlansoprazole 60 mg 60 mg PO DAILY 90 days #90 caps 01/08/21 capsule,biphase delayed release (Dexilant) meloxicam 15 mg tablet 15 mg PO DAILY #14 tabs 01/28/21 ezetimibe 10 mg tablet 10 mg PO DAILY 90 days #90 tabs 05/14/21 sitagliptin phos 50 mg-metformin 2 tab PO DAILY 90 days #180 tabs 06/23/21 ER 1,000 mg tablet,extend rel 24h mp lancets 33 gauge (OneTouch Delica #300 ea 08/19/21 Lancets) OneTouch Verio test strips (blood #300 ea 08/20/21 sugar diagnostic) hydrocortisone 2.5 % topical cream 1 appl [place] BID PRN skin irritation 08/24/21 14 days #20 grams cyclobenzaprine 10 mg tablet 10 mg PO BEDTIME #14 tabs 10/06/21 meloxicam 15 mg tablet 15 mg PO DAILY #14 tabs 10/06/21 losartan 50 mg tablet 50 mg PO DAILY 90 days #90 tabs 10/30/21 gabapentin 100 mg capsule 100 mg PO BEDTIME 30 days #30 caps 11/03/21 cyclobenzaprine 10 mg tablet 10 mg PO TID PRN muscle spasm #10 12/29/21 tabs diclofenac sodium 75 mg 75 mg PO BID PRN pain 14 days #28 01/13/22 tablet,delayed release tabs fluticasone propionate 50 1 spray intranasal DAILY #16 grams 01/21/22 mcg/actuation nasal spray,suspension pioglitazone 45 mg tablet 45 mg PO DAILY #90 tabs 01/28/22 Allergies Allergy/AdvReac Type Severity Reaction Status Date / Time Penicillins [PENICILLINS] Allergy Unknown UNKNOWN Verified 02/20/22 10:46 canagliflozin [Invokana] AdvReac Unknown unknown Verified 02/20/22 10:46 statins Allergy Unknown muscle Uncoded 02/20/22 10:46 aches Review of Systems Constitutional: Constitutional: Reports no additional constitutional complaints, Denies chills, Denies fever(s) and Denies night sweats Eyes: Eyes: Reports no additional eye complaints, Denies blurry vision, Denies change in vision, Denies diplopia, Denies eye discharge, Denies loss of vision and Denies eye pain ENT: Denies dizziness Cardiovascular: Cardiovascular: Reports no additional cardiovascular complaints, Reports chest pain (intermittent - now resolved), Denies lightheadedness, Denies Loss of Consciousness and Denies dyspnea Respiratory: Respiratory: Reports no additional respiratory complaints and Denies dyspnea Gastrointestinal: Gastrointestinal: Reports no additional gastrointestinal complaints, Denies abdominal pain, Denies melena, Denies hematochezia, Denies change in bowel habits and Denies change in stool character Genitourinary: Genitourinary: Denies hematuria, Denies urinary frequency, Denies dysuria, Denies urinary incontinence, Denies urinary hesitancy and Denies urinary urgency Musculoskeletal: Musculoskeletal: Reports no additional musculoskeletal complaints, Denies numbness and Denies tingling Neurologic: Denies dizziness, Denies loss of vision, Denies numbness and Denies tingling Psychiatric: Psychiatric: Reports no additional psychiatric complaints Endocrine: Endocrine: Reports no additional endocrine complaints Hematologic/Lymphatic: Hematologic/Lymphatic: Reports no additional hematologic/lymphatic complaints Allergic/Immunologic: Allergic/Immunologic: Reports no additional allergic/immunologic complaints [facility] Past Medical History Attestation statement: The following information was validated with the patient. Source: old records reviewed and nursing notes reviewed Medical History Diabetes type 2, controlled Dyslipidemia Essential hypertension Immunization refused Overweight (BMI 25.0-29.9) Type 2 diabetes mellitus with unspecified complications Surgical History History of appendectomy Hx of tubal ligation Family History Family History Father Heart disease Mother Heart disease Sister Breast cancer Social History Social History Housing: House Alcohol intake: never Patient Tobacco Use Status: Never used Tobacco e-Cigarette/Vaping Use: Never Used Second Hand Smoke Exposure: No Advance Directives: No Advance Directives Information Provided: No 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) Gender identity: Female Cognitive needs: No Hearing needs: No Vision needs: Yes Physical Exam Vital Signs: Vital Signs: Last Vital Signs Temp 97.7 F 02/20/22 12:05 Pulse 67 02/20/22 12:05 Resp 18 02/20/22 12:05 BP 133/68 02/20/22 12:05 Pulse Ox 98 02/20/22 12:05 O2 Del Method 02/20/22 12:05 BMI result Body Mass Index 34.7 Const: General: cooperative, no acute distress, alert and awake Nutritional Appearance: well nourished Orientation/consciousness: patient oriented x3 Limitations: no limitations HEENT: Head: Yes normal to inspection and Yes atraumatic Ears: hearing grossly normal bilaterally and external ears normal General nose exam: Normal external nose present, no nasal discharge noted and no epistaxis Face and sinus: Yes normal facial exam, No abrasion and No laceration Mouth: Normal oral and palatal mucosa present, no drooling and no muffled voice Eyes: General: appearance normal, both eyes and all related structures Periorbital: periorbital findings normal Eyelids: Yes eyelids normal Conjunctivae: conjunctivae normal Pupils: Equal, round and reactive pupils present EOM: EOMs intact bilaterally Neck: Neck: Yes normal visual inspection, Yes full ROM and Yes no lymphadenopathy Chest: Chest palpation & inspection: normal inspection of the chest Resp: Effort & Inspection: normal respiratory effort and able to speak in complete sentences Auscultation: clear to auscultation bilaterally Cardio: Rate: regular rate Rhythm: regular rhythm GI: Inspection: Yes normal to inspection Palpation (GI): Soft to palpation, not firm, nontender, no guarding and not rigid Neuro: General: patient oriented x3 and moves all extremities Cranial nerves: Yes Equal, round and reactive pupils present Cognition (Neuro): normal cognition Motor exam (neuro): 5/5 motor strength present throughout Sensory Exam: Normal double simultaneous stimulation for sensation Coordin ation: [id number] test normal Extrem: General: Yes normal to inspection, Yes full ROM and Yes capillary refill normal Psych: Appearance: grossly normal Mental Status: mental status grossly normal Affect: normal affect Attitude: cooperative Thought process: Normal thought process present Thought content: Normal thought content present Insight: Good insight present (Psych) Medical Decision Making Medical Decision Making [facility] Narrative: Patient is a 71 year old assigned female at with a history of HTN and DM presenting to the emergency department today with intermittent chest pain that has resolved now. Patient's physical exam was unremarkable. Patient's blood work was unremarkable. Patient's EKG was unremarkable. Patient's chest x-ray showed no acute process. I explained my physical exam findings as well as all test results to the patient. I answered all questions asked by the patient. I stressed the importance of the patient taking her medication as prescribed. I stressed the importance of the patient following up with her primary care provider. I stressed the importance of the patient returning to the emergency department immediately if her symptoms were to worsen or if she were to develop any dizziness, shortness of breath, difficulty breathing, chest pain, blurry vision, loss of vision, nausea, vomiting, abdominal pain, fever, chills, back pain, or any other complaints. Patient verbalized agreement and understanding with this treatment plan and discharge. Differential Diagnosis Differential Diagnoses: The differential diagnosis associated with the presentation includes chest pain, angina, anxiety Lab Data [facility] Lab Attestation statement: I reviewed the patient's lab results. 02/20/22 12:33 02/20/22 12:33 Labs: Lab Results 02/20/22 02/20/22 02/20/22 Range/Units 12:33 12:33 12:33 WBC 6.2 (4.8-10.8) X10*3/uL RBC 4.33 (4.20-5.50) X10*6/uL Hgb 12.7 (12.0-16.0) g/dl Hct 39.5 (37.0-47.0) % MCV 91.2 (80.0-98.0) fL MCH 29.3 (27.0-33.0) pg MCHC 32.2 (31.0-35.0) g/dl RDW 14.4 (11.0-16.0) % Plt Count 245 (160-400) X10*3/uL MPV 9.6 (9.4-12.3) fL Immature Gran % (Auto) 0.3 (0.0-0.4) % Neut % (Auto) 68.2 (45-73) % Lymph % (Auto) 24.8 (20-40) % [place] % (Auto) 5.4 (2-11) % Eos % (Auto) 0.8 (0-4) % Baso % (Auto) 0.5 (0-2) % Lymph # (Auto) 1.5 (1.2-4.9) X10*3/uL [place] # (Auto) 0.3 (0.1-1.2) X10*3/uL Eos # (Auto) 0.1 (0.0-0.4) X10*3/uL Baso # (Auto) 0.0 (0.0-0.2) X10*3/uL Abs Immat Gran (auto) 0.02 (0.00-0.03) X10*3/uL Absolute Neuts (auto) 4.2 (2.0-8.3) x10*3/uL Absolute Nucleated RBC 0.000 (0.0-0.012) X10*3/uL Nucleated RBC % (auto) 0.0 (0.0-0.2) /100WBC Sodium 143 (135-145) mmol/L Potassium 4.2 (3.3-5.1) mmol/L Chloride 106 (96-108) mmol/L Carbon Dioxide 27 (22-29) mmol/L Anion Gap 14 (12-20) BUN 16 (9-16) mg/dL Creatinine 0.97 (0.5-1.4) mg/dL Estim Creat Clear Calc 54.9 Estimated GFR 57 Random Glucose 132 H (60-115) mg/dL Calcium 10.1 (8.4-10.2) mg/dL Troponin I High Sens < 3.5 (<3.5-17.0) ng/L Independent Interpretation I performed an independent interpretation of an: EKG Interpretation: Vent. Rate: 074 BPM ? ? Atrial Rate: 074 BPM P-R Int: 152 ms? QRS Dur: 078 ms QT Int: 344 ms ? ? ? P-R-T Axes: 052 001 035 degrees QTc Int: 381 ms ? Normal sinus rhythm Possible Left atrial enlargement Borderline ECG When compared with ECG of 29-MAY-2003 10:52, No significant change was found DD/ 1209 Radiology Impression Discussion of test interpretation with radiology: I have reviewed the radiologis t's reading. Radiologist Impression: EXAMINATION: XR CHEST CLINICAL INFORMATION: Chest pain COMPARISON: None TECHNIQUE: 2 views of the chest were obtained. FINDINGS: The lungs are well expanded. Mild elevation of the right hemidiaphragm. There is no focal consolidation, edema, or effusion. No pneumothorax. The cardiomediastinal silhouette is within normal limits. No acute osseous abnormality. Mild degenerative changes of the spine. XR/XR chest 2V IMPRESSION: Clear lungs. Dictated By: Quique Lindsay MD Signed By: Electronically signed by Quique Lindsay MD 02/20/22 1350 Chronic Conditions Patient?s care impacted by: Diabetes and Hypertension Discharge Plan Discharge Clinical Impression: Chest pain Patient Disposition: Home, Self-Care Instructions: Chest Pain (DC) Additional Instructions: Follow up with your primary care provider and a director learning services. Return to the emergency department immediately if your symptoms worsen or if you develop any dizziness, shortness of breath, difficulty breathing, chest pain, blurry vision, loss of vision, nausea, vomiting, abdominal pain, fever, chills, back pain, or any other complaints. Prescriptions: No Action ezetimibe 10 mg tablet 10 mg PO DAILY 90 Days Qty: 90 3RF sitagliptin phos-metformin 50-1,000 mg tablet, ER multiphase 24 hr 2 tab PO DAILY 90 Days Qty: 180 2RF (DME) lancets [OneTouch Delica Lancets] 33 gauge misc See Rx Instructions .ROUTE .MEDSUPPLY Qty: 300 2RF Rx Instructions: As directed tree times a day (DME) OneTouch Verio test strips Strip See Rx Instructions .ROUTE .MEDSUPPLY Qty: 300 3RF Rx Instructions: 3 times a day hydrocortisone 2.5 % cream 1 appl [place] BID PRN (Reason: skin irritation) 14 Days Qty: 20 1RF losartan 50 mg tablet 50 mg PO DAILY 90 Days Qty: 90 1RF gabapentin 100 mg capsule 100 mg PO BEDTIME 30 Days Qty: 30 2RF diclofenac sodium 75 mg tablet,delayed release (DR/EC) 75 mg PO BID PRN (Reason: pain) 14 Days Qty: 28 0RF Rx Instructions: do not take with motrin or meloxicam. PLEASE USE SPARINGLY DUE TO DIABETES fluticasone propionate 50 mcg/actuation spray,suspension 1 spray intranasal DAILY Qty: 16 1RF pioglitazone 45 mg tablet 45 mg PO DAILY Qty: 90 2RF Dexilant 60 mg capsule,biphase delayed releas 60 mg PO DAILY 90 Days Qty: 90 0RF meloxicam 15 mg tablet 15 mg PO DAILY Qty: 14 0RF meloxicam 15 mg tablet 15 mg PO DAILY Qty: 14 0RF cyclobenzaprine 10 mg tablet 10 mg PO BEDTIME Qty: 14 0RF cyclobenzaprine 10 mg tablet 10 mg PO TID PRN (Reason: muscle spasm) Qty: 10 0RF prednisolone acetate 1 % drops,suspension 0 drp ophthalmic (eye) aspirin 81 mg tablet,delayed release (DR/EC) 81 mg PO DAILY Referrals: Jacob Martinez, OFFICE MACHINE MECHANIC-BC [Primary Care Provider] - Interventions: ED Discharge Assessment Last Done: 02/20/22 14:06 Discharge Date/Time: 02/20/22 14:06 Print Language: Burkinan
[2022-02-20 13:11] LABS: Anion Gap 14 (12-20); Blood Urea Nitrogen 16 mg/dL (9-16); Calcium 10.1 mg/dL (8.4-10.2); Carbon Dioxide 27 mmol/L (22-29); Chloride 106 mmol/L (96-108); Creatinine Clr Calc Pharmacy 54.9; Estimated Glomerular Filt Rate 57; Glucose Random 132 mg/dL (60-115); Potassium 4.2 mmol/L (3.3-5.1); Sodium 143 mmol/L (135-145)
[2022-02-20 13:24] LABS: Troponin-I High Sensitivity < 3.5 ng/L (<3.5-17.0)
== END 2022-02-20 14:06 | disposition home or self-care (01) ==
PROVIDERS: Emergency Provider Emergency Medicine; PCP Nurse Practitioner Family
DX: R07.89 Other chest pain (principal); Z79.899 Other long term (current) drug therapy
CPT/HCPCS: 36415; 71046; 80048; 84484; 85025; 93005; 99283; 99284

== ENCOUNTER 2022-04-16 11:55 | Outpatient (REF) | payer MEDICARE, SELFPAY ==
[2022-04-16 12:20] LABS: Binax Internal Control QC Valid; Binax Now Covid-19 Ag Negative (Negative); Binax Performed by: PAULP
[2022-04-16 14:49] LABS: Influenza A PCR NEGATIVE (Negative); Influenza B PCR NEGATIVE (Negative); Resp Syncy Virus RNA Qual PCR NEGATIVE (Negative); SARS COV2 PCR INHOUSE NEGATIVE (Negative)
== END 2022-04-16 11:56 | disposition home or self-care (01) ==
LOC: HO.HMGCLDS 11:55
PROVIDERS: PCP Nurse Practitioner Family; Visit Provider Physician Assistant Medical
DX: R05.9 Cough, unspecified (principal); Z20.822 Contact with and (suspected) exposure to COVID-19
CPT/HCPCS: 0241U; 87811; C9803

== ENCOUNTER 2022-08-04 14:05 | Outpatient (REF) | payer MEDICARE, SELFPAY ==
--- NOTE | ~2022-08-04 | XR_ITS ---
EXAMINATION: XR CHEST CLINICAL INFORMATION: Acute upper respiratory infection, unspecified COMPARISON: Chest 02/20/2022 TECHNIQUE: 2 views of the chest were obtained. FINDINGS: No significant abnormality is noted involving the heart, lungs, mediastinum or soft tissues. No change in mild elevation of the right hemidiaphragm. Moderate degenerative changes involve the thoracic spine. XR/XR chest 2V IMPRESSION: No acute cardiopulmonary disease.
== END 2022-08-04 14:06 | disposition home or self-care (01) ==
LOC: HO.HMGCX 14:05
PROVIDERS: PCP Nurse Practitioner Family; Visit Provider Internal Medicine
DX: J06.9 Acute upper respiratory infection, unspecified (principal)
CPT/HCPCS: 71046

== ENCOUNTER 2022-09-14 09:55 | Outpatient (REF) | payer MEDICARE, SELFPAY ==
[2022-09-14 13:34] LABS: MANUAL DIFF FLAG NO
[2022-09-14 13:55] LABS: Basophils Percent Auto 0.7 % (0-2); Eosinophils Absolute Auto 0.1 X10*3/uL (0.0-0.4); Eosinophils Percent Auto 0.8 % (0-4); Hematocrit 42.1 % (37.0-47.0); Hemoglobin 13.2 g/dl (12.0-16.0); Imm Gran Abs Auto 0.01 X10*3/uL (0.00-0.03); Imm Gran Pct Auto 0.2 % (0.0-0.4); Lymphocytes Absolute Auto 1.7 X10*3/uL (1.2-4.9); Lymphocytes Percent Auto 28.5 % (20-40); Mean Corpuscular HGB Conc 31.4 g/dl (31.0-35.0); Mean Corpuscular Hemoglobin 29.6 pg (27.0-33.0); Mean Corpuscular Volume 94.4 fL (80.0-98.0); Mean Platelet Volume 10.7 fL (9.4-12.3); Monocytes Absolute Auto 0.4 X10*3/uL (0.1-1.2); Monocytes Percent Auto 7.1 % (2-11); Neutrophils Absolute Auto 3.7 x10*3/uL (2.0-8.3); Neutrophils Percent Auto 62.7 % (45-73); Platelet Count 246 X10*3/uL (160-400); Red Blood Count 4.46 X10*6/uL (4.20-5.50); Red Cell Distribution Width 14.1 % (11.0-16.0); White Blood Count 5.9 X10*3/uL (4.8-10.8)
[2022-09-14 14:03] LABS: Creatinine Urine 212.41 mg/dL; Microalbum/Creatinine Ratio Ur 5.6 ug/mg cr
[2022-09-14 14:16] LABS: Alanine Aminotransferase 16 U/L (0-31); Albumin Level 3.9 g/dL (3.5-5.0); Alkaline Phosphatase 57 U/L (39-117); Anion Gap 15 (12-20); Aspartate Amino Transferase 22 U/L (5-31); Bilirubin Total 0.2 mg/dL (0.0-1.0); Blood Urea Nitrogen 17 mg/dL (9-16); Calcium 10.2 mg/dL (8.4-10.2); Carbon Dioxide 24 mmol/L (22-29); Chloride 107 mmol/L (96-108); Cholesterol 155 mg/dL; Estimated Glomerular Filt Rate 51; Glucose Fasting 114 mg/dL (60-99); HDL Cholesterol 64 mg/dL; LDL Cholesterol Calculated 78 mg/dl; Potassium 4.3 mmol/L (3.3-5.1); Sodium 142 mmol/L (135-145); Total Protein 6.9 g/dL (6.5-8.0); Triglycerides 68 mg/dL
[2022-09-14 14:35] LABS: Estimated Average Glucose 131 mg/dL; Hemoglobin A1c % 6.2 %
== END 2022-09-14 09:56 | disposition home or self-care (01) ==
LOC: HO.HMGCLDS 09:55
PROVIDERS: PCP Nurse Practitioner Family; Visit Provider Nurse Practitioner Family
DX: E11.9 Type 2 diabetes mellitus without complications (principal)
CPT/HCPCS: 36415; 80053; 80061; 82043; 83036; 85025

== ENCOUNTER 2022-09-22 07:52 | Outpatient (AMB) | payer MEDICARE, SELFPAY ==
[2022-09-22 07:58] VITALS: BP 130/84; PULSE 79; O2SAT 97; BMI 31.5
--- NOTE | 2022-09-22 07:58 | MHC.PC.OV ---
Vital Signs 09/22/22 07:58 Height 5 ft 2 in Weight 172 lb 6 oz BMI 31.5 BP 130/84 Blood Pressure Location Lt brachial Position Sitting Pulse 79 Pulse Source Pulse Oximeter Pulse Oximetry (%) 97 Oxygen Delivery Method Room Air Intake Visit Reasons: Annual PE Allergies Penicillins [PENICILLINS] Allergy (Unknown, Verified 09/22/22 08:01) UNKNOWN canagliflozin [Invokana] Adverse Reaction (Unknown, Verified 09/22/22 08:01) unknown statins Allergy (Unknown, Uncoded 09/22/22 08:01) muscle aches Medication List - Last Reconciled 09/22/22 by Jacob Martinez, PEWTER CASTER-BC albuterol sulfate 90 mcg/actuation (Ventolin HFA) 1 inh inhalation QID PRN aspirin 81 mg PO DAILY cetirizine 10 mg PO DAILY PRN cyclobenzaprine 10 mg PO TID PRN diclofenac sodium 75 mg PO BID PRN 14 days ezetimibe 10 mg PO DAILY 90 days fluticasone propionate 50 mcg/actuation 1 spray intranasal DAILY gabapentin 100 mg PO BEDTIME 30 days hydrocortisone 2.5% 1 appl [place] BID PRN 14 days lancets (BetUknowuch DelAdvanova Lancets) As directed tree times a day losartan 50 mg PO DAILY 90 days magnesium oxide 400 mg PO DAILY 30 days OneTouch Verio test strips (blood sugar diagnostic) 3 times a day NS pioglitazone 45 mg PO DAILY sitagliptin phos-metformin 50-1,000 mg ER 1 tab PO BID 90 days vitamin B complex 1 tab PO DAILY 30 days Tobacco use date assessed: 09/22/22 Fall risk assessment: No Falls in past year Last assessed Fall Risk: 09/22/22 Dental Screening Dental Screen Date: 09/22/22 Did you have a dental visit in the last 12 months?: No Did you have a dental problem in the last 6 months where you did not have access to dental care?: No Was dental information given to patient?: No HPI Annual PE HPI Details Pt is here for a PE. Will order labs. Cologuard due in November, will order. Due for mammo next month, will order. Due for bone density next month, will order. Pt is a diabetic, on an ARB. Last A1c was 6.2, microalbumin is up to date. Denies polyuria, polydipsia, does report neuropathy at night. Pt denies any signs and symptoms of hypoglycemia and does know how to correct it. Will increase gabapentin due to neuropathy. 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 Remy Castanon, Tabby Scott, Robert Reynolds and colleagues, with an educational fe from [employer]. Review of Systems Const Denies chills and Denies fever(s) Eyes Denies blurry vision ENT Denies vertigo, Denies dizziness and Denies sore throat Card Denies chest pain at rest, Denies chest pain with activity, Denies diaphoresis, Denies dyspnea and Denies dyspnea on exertion Resp Denies cough, Denies dyspnea, Denies dyspnea on exertion and Denies wheezing GI Denies abdominal pain, Denies melena, Denies hematochezia, Denies constipation, Denies diarrhea and Denies loose stools Denies hematuria Musc Denies numbness and Denies tingling Skin/Breast Denies lesions Neuro Denies vertigo, Denies dizziness, Denies numbness and Denies tingling Psych Denies anxiety, Denies depression, Denies homicidal ideation, Denies suicidal ideation and Denies other (substance abuse) Aller/Immun Denies wheezing Physical exam (Primary Care) Vital Signs: Last Vital Signs Pulse 79 09/22/22 07:58 BP 130/84 09/22/22 07:58 Pulse Ox 97 09/22/22 07:58 Oxygen Delivery Method Room Air 09/22/22 07:58 BMI result Body Mass Index 31.5 Tobacco/Smoking Status: Tobacco use Status Tobacco use date assessed 09/22/22 09/22/22 08:05 Patient Tobacco Use Status Never used Tobacco 09/22/22 08:03 e-Cigarette/Vaping Use Never Used 09/22/22 08:03 Thrive Assessment: Date of Thrive Assessment Date Thrive assessed 03/03/22 09/22/22 08:03 Const General: cooperative Nutritional Appearance: obese Orientation/consciousness: patient oriented x3 HENMT Head: Yes normal to inspection, Yes normocephalic and Yes atraumatic Ears: TM's normal bilaterally Eyes General: appearance normal, both eyes and all related structures Alignment and Position: alignment normal and position normal Neck Neck: Yes normal visual inspection and Yes no lymphadenopathy Thyroid: Thyroid normal Resp Effort & Inspection: normal respiratory effort Auscultation: clear to auscultation bilaterally Cardio Rate: regular rate Rhythm: regular rhythm Heart sounds: S1 normal heart sound present, S2 normal heart sound present and Murmur heart sound present (faint) GI Palpation (GI): Soft to palpation and nontender Auscultation: normal bowel sounds Skin Rashes: no rashes Neuro General: patient oriented x3, moves all extremities, no focal motor deficits and deep tendon reflexes 2+ bilaterally Romberg Test: Negative Extrem Other: bilat feet: + sensation with use of monofilament, feet intact Psych Appearance: grossly normal Mental Status: mental status grossly normal Speech and movement: Normal speech and movement present Affect: normal affect Attitude: cooperative Thought process: Normal thought process present Thought content: Normal thought content present Insight: Good insight present (Psych) Judgement: Good judgement present (Psych) Assessment and Plan Assessment & Plan (1) Diabetes: Code(s): E11.9 - Type 2 diabetes mellitus without complications Plan: Labs ordered (2) Physical exam: Code(s): Z00.00 - Encounter for general adult medical examination without abnormal findings Plan: Labs ordered (3) Postmenopausal: Code(s): Z78.0 - Asymptomatic menopausal state Plan: Bone density (4) Vitamin D deficiency: Code(s): E55.9 - Vitamin D deficiency, unspecified Plan: Vitamin D ordered Plan The patient agreed to the use of a medical specialist for this encounter. Scribed for LATRICE Benton-BC by Simran Carrillo medical specialist, on 09/22/2022 at 08:10 EST. Orders: Orders MM screening mammo BI Today Z12.31 - Encounter for screening mammogram for malignant neoplasm of breast Comprehensive [place]. Panel Fast Today E11.9 - Type 2 diabetes mellitus without complications, Z00.00 - Encounter for general adult medical examination without abnormal findings Lipid Panel Today E11.9 - Type 2 diabetes mellitus without complications, Z00.00 - Encounter for general adult medical examination without abnormal findings TSH reflex Free T4 Today E11.9 - Type 2 diabetes mellitus without complications, Z00.00 - Encounter for general adult medical examination without abnormal findings Complete Blood Count Auto Diff Today E11.9 - Type 2 diabetes mellitus without complications, Z00.00 - Encounter for general adult medical examination without abnormal findings UA CC w/rflx Micro + Cult Today E11.9 - Type 2 diabetes mellitus without complications, Z00.00 - Encounter for general adult medical examination without abnormal findings Vitamin D 25-OH Total Today E55.9 - Vitamin D deficiency, unspecified XR DEXA axial skeleton Today E55.9 - Vitamin D deficiency, unspecified, Z78.0 - Asymptomatic menopausal state Referrals Cologuard Test Z12.11 - Encounter for screening for malignant neoplasm of colon, Z12.12 - Encounter for screening for malignant neoplasm of rectum Medications: Changed From gabapentin 100 mg PO BEDTIME 30 days 30 caps 2RF To gabapentin 200 mg (2 x 100 mg) PO BEDTIME 60 caps 2RF 30 days Coding Level of Care Code Est Pt Prev Care >65y(07947) Diagnoses Diabetes E11.9 Physical exam Z00.00 Postmenopausal Z78.0 Vitamin D deficiency E55.9
== END 2022-09-22 08:22 | disposition home or self-care (01) ==
PROVIDERS: PCP Nurse Practitioner Family; Visit Provider Nurse Practitioner Family
DX: Z00.00 Encounter for general adult medical examination without abnormal findings (principal); E11.9 Type 2 diabetes mellitus without complications; Z78.0 Asymptomatic menopausal state; E55.9 Vitamin D deficiency, unspecified
CPT/HCPCS: 99397

== ENCOUNTER 2022-09-28 07:20 | Outpatient (REF) | payer MEDICARE, SELFPAY ==
[2022-09-28 11:53] LABS: Appearance Urine Clear; Color Urine Yellow; Glucose Urine UA Negative (Negative); Leukocyte Esterase Urine Negative (Negative); Nitrite Urine Negative (Negative); PH 5.5 (5.0-9.0); Specific Gravity - Urine 1.015 (1.005-1.025); Urine Blood Negative (Negative); Urine Ketones Negative (Negative); Urine Protein Negative (Neg-Trace)
[2022-09-28 11:59] LABS: MANUAL DIFF FLAG NO
[2022-09-28 12:18] LABS: Basophils Absolute Auto 0.1 X10*3/uL (0.0-0.2); Basophils Percent Auto 0.9 % (0-2); Eosinophils Absolute Auto 0.1 X10*3/uL (0.0-0.4); Eosinophils Percent Auto 1.4 % (0-4); Hematocrit 41.3 % (37.0-47.0); Hemoglobin 13.2 g/dl (12.0-16.0); Imm Gran Abs Auto 0.01 X10*3/uL (0.00-0.03); Imm Gran Pct Auto 0.2 % (0.0-0.4); Lymphocytes Absolute Auto 2.3 X10*3/uL (1.2-4.9); Lymphocytes Percent Auto 40.3 % (20-40); Mean Corpuscular Hemoglobin 29.9 pg (27.0-33.0); Mean Corpuscular Volume 93.7 fL (80.0-98.0); Mean Platelet Volume 10.7 fL (9.4-12.3); Monocytes Absolute Auto 0.4 X10*3/uL (0.1-1.2); Monocytes Percent Auto 6.7 % (2-11); Neutrophils Absolute Auto 2.9 x10*3/uL (2.0-8.3); Neutrophils Percent Auto 50.5 % (45-73); Platelet Count 299 X10*3/uL (160-400); Red Blood Count 4.41 X10*6/uL (4.20-5.50); Red Cell Distribution Width 14.3 % (11.0-16.0); White Blood Count 5.7 X10*3/uL (4.8-10.8)
[2022-09-28 12:43] LABS: Alanine Aminotransferase 18 U/L (0-31); Albumin Level 3.9 g/dL (3.5-5.0); Alkaline Phosphatase 57 U/L (39-117); Anion Gap 11 (12-20); Aspartate Amino Transferase 25 U/L (5-31); Bilirubin Total 0.2 mg/dL (0.0-1.0); Blood Urea Nitrogen 16 mg/dL (9-16); Calcium 10.1 mg/dL (8.4-10.2); Carbon Dioxide 28 mmol/L (22-29); Chloride 106 mmol/L (96-108); Cholesterol 163 mg/dL; Estimated Glomerular Filt Rate 46; Glucose Fasting 122 mg/dL (60-99); HDL Cholesterol 65 mg/dL; LDL Cholesterol Calculated 85 mg/dl; Potassium 4.7 mmol/L (3.3-5.1); Sodium 140 mmol/L (135-145); Total Protein 6.9 g/dL (6.5-8.0); Triglycerides 67 mg/dL
[2022-09-28 13:02] LABS: Vitamin D 25-OH Total 60.2 ng/mL (>30)
== END 2022-09-28 07:21 | disposition home or self-care (01) ==
LOC: HO.HMGCLDS 07:20
PROVIDERS: PCP Nurse Practitioner Family; Visit Provider Nurse Practitioner Family
DX: Z00.00 Encounter for general adult medical examination without abnormal findings (principal); E55.9 Vitamin D deficiency, unspecified; E11.9 Type 2 diabetes mellitus without complications
CPT/HCPCS: 36415; 80053; 80061; 81003; 82306; 84443; 85025

== ENCOUNTER 2022-10-13 16:05 | Outpatient (REF) | payer MEDICARE, SELFPAY ==
--- NOTE | ~2022-10-13 | XR_ITS ---
EXAMINATION: XR CHEST CLINICAL INFORMATION: Shortness of breath. COMPARISON: 08/04/2022 chest radiographs. TECHNIQUE: 2 views of the chest were obtained. FINDINGS: No significant abnormality is noted involving the heart, lungs, mediastinum, bony thorax or soft tissues. XR/XR chest 2V IMPRESSION: No acute cardiopulmonary process.
== END 2022-10-13 16:06 | disposition home or self-care (01) ==
LOC: HO.HMGCX 16:05
PROVIDERS: PCP Nurse Practitioner Family; Visit Provider Nurse Practitioner Family
DX: R06.02 Shortness of breath (principal)
CPT/HCPCS: 71046

== ENCOUNTER 2022-11-02 08:45 | Outpatient (REF) | payer MEDICARE, OTHER, SELFPAY ==
--- NOTE | 2022-11-02 10:16 | PFT_ITS ---
FLOWS: 1. FEV1 159% of predicted at 2.03 L. 2. FVC 112% of predicted at 2.12 L. 3. FEV1 to FVC ratio of 0.96. 4. Positive bronchodilator response. LUNG VOLUMES: Patient was unable to perform lung volume maneuvers. Diffusion capacity is normal. IMPRESSION: No obstructive or restrictive ventilatory defect. Positive bronchodilator response. This test results canceled just underlying asthma. Clinical correlation is advised. MD OSITO Yin/HARSHA / [id number]
== END 2022-11-02 08:46 | disposition home or self-care (01) ==
LOC: HO.RESP 08:45
PROVIDERS: PCP Nurse Practitioner Family; Visit Provider Nurse Practitioner Family
DX: R06.02 Shortness of breath (principal)
CPT/HCPCS: 94010; 94727; 94729

== ENCOUNTER → 2022-11-02 10:16 | Outpatient (BNV) | payer MEDICARE, SELFPAY | PROVIDERS: PCP Nurse Practitioner Family; Visit Provider Internal Medicine Pulmonary Disease | DX: R06.02 Shortness of breath (principal) | CPT/HCPCS: 94060; 94729 ==

== ENCOUNTER 2022-11-11 13:58 | Outpatient (REF) | payer MEDICARE, SELFPAY ==
--- NOTE | ~2022-11-11 | MM_ITS ---
EXAMINATION: BONE DENSITOMETRY CLINICAL INDICATION: Asymptomatic menopausal state. COMPARISON: Previous BD dated 11/06/2020 and baseline BD dated 08/29/2015. TECHNIQUE: Using a Xapo DXA System (software version: 13.1) manufactured by [employer], dual-energy x-ray absorptiometry was performed of the lumbar spine and left hip. The images are of good technical quality. Summary results are attached. FINDINGS: AP SPINE L1-L3 (excluding L4): The data of L1-L4 has been changed to exclude the L4 vertebral body, because significant degenerative change at this level may cause overestimation of lumbar spine density. Current: BMD 1.465 g/cm2, Z-score 2.9, T-score 2.5, normal, 1.9% decrease from previous, 2.5% decrease from baseline (<5% change is not significant). Prior: BMD 1.493 g/cm2. Baseline: BMD 1.502 g/cm2. LEFT FEMUR, NECK: Current: BMD 1.083 g/cm2, Z-score 0.8, T-score 0.3, normal. Prior: BMD 1.074 g/cm2. Baseline: BMD 1.059 g/cm2. LEFT FEMUR, TOTAL: Current: BMD 1.126 g/cm2, Z-score 1.1, T-score 0.9, normal, 1.3% decrease from previous, 5.3% decrease from baseline (<5% change is not significant). Prior: BMD 1.141 g/cm2. Baseline: BMD 1.189 g/cm2. IDENTIFIED RISK FACTORS: Menopause. HISTORY OF FRACTURE: None listed. MEDICATIONS: Vitamin D. MM/XR DEXA axial skeleton IMPRESSION: 1. DIAGNOSIS: Normal bone density based on the lowest T-score value of 0.3 in the femoral neck applying World Health Organization criteria. 2. 10-YEAR FRACTURE RISK PREDICTION, FRAX: According to the guidelines, FRAX calculation should only be performed on patients in the osteopenia bone density category.?Therefore, FRAX was not performed on this patient.? 3. Treatment Recommendations: NOF guidelines recommend consideration for treatment in postmenopausal women and men age 50 and older presenting with the following: -A hip or vertebral (clinical or morphometric) fracture. -T-score less than or equal to -2.5 at the femoral neck or spine after appropriate evaluation to exclude secondary causes. -Low bone mass at the hip or spine and a 10-year fracture probability by FRAX of greater than or equal to 3% for hip fracture or greater than or equal to 20% for major osteoporotic fracture based on the [place] adapted WHO algorithm. 4. Other Recommendations: All treatment decisions require clinical judgment and consideration of individual patient factors, including patient preferences, comorbidities, previous drug use, risk factors not captured in the FRAX model (e.g. frailty, falls, vitamin D deficiency, increased bone turnover, interval significant decline in bone density) and possible under or overestimation of fracture risk by FRAX. FUTURE SCAN RECOMMENDATION: People with diagnosed cases of osteoporosis or at high risk for fracture should have regular bone mineral density tests. For patients eligible for Medicare, routine testing is allowed once every 2 years. The testing frequency can be increased to one year for patients who have rapidly progressing disease, those who are receiving or discontinuing medical therapy to restore bone mass, or have additional risk factors.
== END 2022-11-11 13:59 | disposition home or self-care (01) ==
LOC: HO.MAMMO 13:58
PROVIDERS: PCP Nurse Practitioner Family; Visit Provider Nurse Practitioner Family
DX: Z12.31 Encounter for screening mammogram for malignant neoplasm of breast (principal); Z13.820 Encounter for screening for osteoporosis; Z78.0 Asymptomatic menopausal state; E55.9 Vitamin D deficiency, unspecified
CPT/HCPCS: 77063; 77067; 77080

== ENCOUNTER → 2022-11-11 14:15 | Outpatient (BNV) | payer MEDICARE, SELFPAY | PROVIDERS: PCP Nurse Practitioner Family; Visit Provider Radiology Diagnostic Radiology | DX: Z12.31 Encounter for screening mammogram for malignant neoplasm of breast (principal) | CPT/HCPCS: 77063; 77067 ==

== ENCOUNTER → 2022-12-09 14:40 | Outpatient (REF) | payer MEDICARE, SELFPAY ==
--- NOTE | 2022-12-09 14:45 | CA_ITS ---
Transthoracic Echocardiogram Patient (Last, First, Middle): Kylah Lewis, Gender: Female Date of : 1950 Age: 72 Procedure Date: 12/09/2022 Procedure Type: Transthoracic Echocardiogram Location: OP Height: 160.02 cm Weight: 81.19 kg BSA: 1.84 m2 Heart Rate: bpm BP: 115 / 60 mmHg Binding Nicker: ORLANDO/CATHY Referring MD: Jacob Martinez [facility] Batting Machine Operator: Jairon Blackburn MD Symptoms: R06.01 - Orthopnea Study Quality: Adequate ECG Rhythm: Sinus Conclusions: - 1. Normal LV ejection fraction of 60 65% with mild LVH with impaired relaxation filling pattern 2. Normal cardiac valvular Doppler 3. Normal RV systolic pressure 4. No gross pericardial effusion Findings Left Ventricle Normal left ventricular size and systolic function. There is mildly increased left ventricular wall thickness. The visually estimated ejection fraction is between 60-65%. Spectral Doppler is indicative of an impaired relaxation filling pattern. E/E prime ratio is between 8 and 15 consistent with indeterminate filling pressures. Peak GLS is -19%, within normal limits. Right Ventricle Normal right ventricular cavity size and systolic function. Atria The left atrium is normal in size. Interatrial shunt cannot be excluded. The right atrium is normal in size. Aortic Valve There is mild calcification of the aortic valve. There is no aortic valve stenosis. There is no aortic valve regurgitation. Mitral Valve Normal mitral valve structure and function. There is trace mitral valve regurgitation. There is no mitral valve stenosis. Pulmonic Valve The pulmonic valve is likely normal. Tricuspid Valve Likely normal tricuspid valve structure and function. There is trace tricuspid valve regurgitation. The right ventricular systolic pressure is normal. The right ventricular systolic pressure is 31 mmHg. Normal right atrial pressure. There is no evidence of pulmonary hypertension. Great Vessels All visible segments of the aorta are normal in size. The pulmonary artery was not well visualized. Venous The inferior vena cava is normal in size and collapses greater than 50% with inspiration. Pericardium/Pleural There is no evidence of pericardial effusion. Measurements 2D Linear Measurements IVSd: 1.30 0.6-0.9/0.6-1.0 cm LVIDd: 3.40 3.9-5.3/4.2-5.9 cm LVIDd Index: 1.85 2.4-3.2/2.2-3.1 cm/m2 LVIDs: 1.90 2.0-3.6 cm LVPWd: 1.10 0.7-1.1 cm LA Diam: 3.30 2.7-3.8/3.0-4.0 cm LAIDs Index: 1.79 1.5-2.3 cm/m2 LV Mass: 162.04 67-162/88-224 g LV Mass Index: 88.07 43-95/49-115 g/m2 LVOT Diam: 1.90 3.0+(-)1.3 cm 2D Systolic Function EF 4C: 64.90 >55% EF 2C: 66.30 >55% EF BiP: 65.60 >55% Mitral Valve MV Pk E: 0.97 MV PK A: 1.21 MV Decel Time: 170.00 E/A: 0.80 E'Lateral: 6.85 E'Medial: 5.66 E/E' Med: 17.10 E/E' Lat: 14.10 PHT: 50.00 MVA PHT: 4.40 Decel Willacy: 5.70 Aortic Valve AoV Pk Frankie: 1.50 AoV Mn Frankie: 0.97 AoV VTI: 0.29 AoV Pk Grad: 9.00 Aov Mn Grad: 4.00 RAJEEV Cont.VTI: 2.51 LVOT LVOT Pk Frankie: 1.26 LVOT Mn Frankie: 0.87 LVOT VTI: 0.26 LVOT Pk Grad: 6.00 LVOT Mn Grad: 3.00 LVOT Diam: 1.90 LVOT Area: 2.84 Diastolic Function MV Pk E: 0.97 MV Pk A: 1.21 E/A: 0.80 E'Medial: 5.66 E/E' Med: 17.10 E' Laterial: 6.85 E/E' Lat: 14.10 Right Ventricle TAPSE (mm): 24.80 TVS' Frankie: 18.50 Tricuspid Valve TR Pk Frankie: 2.65 TR Pk Grad: 28.00 RA Press: 3.00 RVSP: 31.00 Great Vessels Aorta Sinus of Valsalva: 3.20 2.0-3.[address] Ridge: 2.80 1.7-3.4 cm Ao Asc: 3.30 2.1-3.4 cm Ao Arch: 2.90 Updated in Other Vendor System with Status of Final Jairon Blackburn MD electronically signed on 12/10/2022 4:53:58 PM with status of Final
== END ==
LOC: HO.CARD 14:40
PROVIDERS: Visit Provider Nurse Practitioner Family
DX: R06.01 Orthopnea (principal)
CPT/HCPCS: 93306; 93356

== ENCOUNTER → 2022-12-09 14:45 | Outpatient (BNV) | payer MEDICARE, SELFPAY | PROVIDERS: Visit Provider Internal Medicine Cardiovascular Disease | DX: I35.8 Other nonrheumatic aortic valve disorders (principal) | CPT/HCPCS: 93306 ==

== ENCOUNTER 2022-12-11 08:27 | Outpatient (AMB) | payer MEDICARE, SELFPAY ==
--- NOTE | 2022-12-11 09:04 | AM.OFFWIN_ITS ---
Intake Vital Signs 12/11/22 09:14 Height 5 ft 2 in Weight 170 lb 4 oz BMI 31.1 BP 130/72 Blood Pressure Location Lt brachial Position Sitting Pulse 72 Pulse Source Pulse Oximeter Temp 97.8 F Temp Source Temporal Artery Scan Pulse Oximetry (%) 98 Oxygen Delivery Method Room Air Intake Visit Reasons: EP Dizzy, Nausea Intake Note: pt is here for c/o dizziness and nausea Patient Tobacco Use Status: Never used Tobacco Allergies Penicillins [PENICILLINS] Allergy (Unknown, Verified 12/11/22 09:15) UNKNOWN canagliflozin [Invokana] Adverse Reaction (Unknown, Verified 12/11/22 09:15) unknown statins Allergy (Unknown, Uncoded 09/22/22 08:01) muscle aches Do you need a note to return to daycare/school/sports/work: Yes HPI HPI Comments History of Present Illness Details This is a 72-year-old female who presents to the office today for sick visit. Patient complaining of dizziness and nausea beginning this morning. She states she had an episode of dizziness described as the room spinning sensation that occurred 3 days ago but resolved spontaneously. She woke this morning around 4:00 a.m. and got up to go to the bathroom and had a similar sensation of dizziness. She then started to develop some nausea without vomiting. She denies any facial asymmetry, slurred speech, visual disturbances, or unilateral numbness/weakness/paresthesias of her extremities. She states she had been diagnosed with vertigo in the past. 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) Gender identity: Female Cognitive needs: No Hearing needs: No Vision needs: Yes Female Reproductive History Menstrual Age of Menarche: 17 Review of Systems Const All systems reviewed & are unremarkable except as noted in HPI and below Reports no additional complaints Eyes Reports no additional complaints ENT Reports no additional complaints Card Reports no additional complaints Resp Reports no additional complaints GI Reports no additional complaints Reports no additional complaints Musc Reports no additional complaints Skin/Breast Reports system reviewed and no additional complaints, except as documented Neuro Reports no additional complaints Psych Reports no additional complaints Endo Reports no additional complaints Abdoulaye/Lymph Reports no additional complaints Aller/Immun Reports no additional complaints Physical Exam Vital Signs: Last Vital Signs Temp 97.8 F 12/11/22 09:14 Pulse 72 12/11/22 09:14 BP 130/72 12/11/22 09:14 Pulse Ox 98 12/11/22 09:14 Oxygen Delivery Method Room Air 12/11/22 09:14 BMI result Body Mass Index 31.1 Const Other: Vital signs reviewed. Constitutional: Non-toxic appearing. No acute distress. Well-developed and well-nourished. HEENT: Normocephalic and atraumatic. Tympanic membranes without erythema, edema, or bulging bilaterally. External auditory canals without erythema or edema bilaterally. Moist mucous membranes. No pharyngeal erythema or exudates. Skin: Warm and dry. No rashes or lesions noted. Neck: Full and painless range of motion. No cervical lymphadenopathy. Cardio: Regular rate and rhythm. No murmurs, gallops, or rubs. No lower extremity edema. No JVD. Pulmonary: No respiratory distress. No accessory muscle usage. Clear to auscultation bilaterally without wheezing, crackles, or rhonchi. Gastrointestinal: Soft, nontender, and nondistended in all 4 quadrants. Normoactive bowel sounds in all 4 quadrants. Genitourinary: No CVA tenderness. Musculoskeletal: Normal range of motion in joints throughout the body. No deformity or other signs of injury. Neuro: Alert and oriented x4. Cranial nerves 2-12 grossly intact. No focal deficits appreciated. No pronator drift. Facial movements are equal and symmetric. Intact gait without ataxia. Psych: Normal mood and affect. Assessment & Plan Assessment & Plan (1) Benign paroxysmal positional vertigo: Code(s): H81.10 - Benign paroxysmal vertigo, unspecified ear Plan: This is a 72-year-old female with past medical history significant for central hypertension, hyperlipidemia, and diabetes mellitus who presented to the office complaining of dizziness and nausea. On physical examination, patient is completely neurologically intact without focal deficits and her gait is intact without ataxia. History and physical most consistent with benign paroxysmal positional vertigo, very low concern for posterior circulation CVA but patient does have several risk factors for CVA. Patient has no concerning symptoms including facial asymmetry, slurred speech, unilateral numbness/weakness/paresthesias, or visual disturbances. Her vital signs are stable without hypertension. I will treat BPPV with p.o. meclizine as needed fo r dizziness as well as p.o. ondansetron as needed for nausea/vomiting. Patient was instructed to proceed directly to the emergency room if she were to develop facial asymmetry, slurred speech, unilateral numbness/weakness/paresthesias, or visual disturbances or if her dizziness persistent does not improve with symptomatic management. Patient verbalizes her understanding and she is in agreement with the plan. Patient's grandson will be driving her home so patient will not be driving her car home. Medications: New ondansetron 4 mg PO Q6H PRN 14 tabs 0RF nausea and vomiting meclizine 50 mg PO BID PRN 14 tabs 0RF dizziness Coding Level of Care Code Est Pt Level 3 (20448) Diagnoses Benign paroxysmal positional vertigo H81.10
[2022-12-11 09:14] VITALS: BP 130/72; PULSE 72; TEMP 36.6; O2SAT 98; BMI 31.1
== END 2022-12-11 10:15 | disposition home or self-care (01) ==
PROVIDERS: PCP Nurse Practitioner Family; Visit Provider Physician Assistant Medical
DX: H81.13 Benign paroxysmal vertigo, bilateral (principal); E11.8 Type 2 diabetes mellitus with unspecified complications
CPT/HCPCS: 99213

== ENCOUNTER 2022-12-15 08:58 | Outpatient (AMB) | payer MEDICARE, SELFPAY ==
--- NOTE | 2022-12-15 09:01 | MHC.OFFVIS ---
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 She was diagnosed with DARRELL about 40 years ago, and used CPAP for about 10 years. She could not sleep well with CPAP and stopped using it. Pt reports her symptoms has been progressed, loud snoring, and coughing a lot when she sleep on her back. She has difficulty staying sleep, wakes up gasping and frequent arousals and non refreshing sleep. Sleep questionnaire: Have you ever been diagnosed with a sleep disorder? Yes, DARRELL about 40 years ago. Have you ever had a sleep study in the past? Yes. Have you ever been treated for a sleep disorder? Yes, CPAP. Do you take medications for a sleep disorder? No. Do you snore? Yes. Do you wake up gasping at night? Yes. Do you have episodes of apneas? Yes. If yes, are they witnessed? Yes. Do you have episodes of nocturnal chest pain or dyspnea? Yes. Do you have difficulty initiating sleep? Yes. Do you have difficulty maintaining sleep? Yes. Do you wake up tired? Yes. Do you have headaches upon awakening? No. Do you wake up with dry mouth or throat? Yes, sometimes. Do you have GERD? No. Do you have nocturia? Not really. Do you have nocturnal leg cramps? Yes. Do you have symptoms of restless legs? No. Do you act out your dreams? No. Sleep hygiene questionnaire: What is your usual sleep routine? Usual bedtime is at 9 pm; Usual wake up time is at 6:30 am. Do you take naps? Sometimes, Is your sleep environment cool, dark, and quiet? TV on. Do you exercise? No. Do you take caffeine or other stimulants? Soda daily, but cutting down. Do you use electronics in bed? Watch TV. What is your work schedule? 9 am to 2 pm. Hypersomnolence questionnaire: Do you have daytime tiredness or fatigue? Yes. Do you easily fall asleep when inactive? No. Have you ever had episodes of sudden weakness? No. Have you ever had episodes of sudden weakness associated with strong emotions? No. PFSH Medical History Immunization refused Diabetes type 2, controlled Overweight (BMI 25.0-29.9) Dyslipidemia Essential hypertension Type 2 diabetes mellitus with unspecified complications Surgical History Hx of tubal ligation History of appendectomy Family History Father Heart disease Mother Heart disease Sister Breast cancer Social History (Reviewed 12/15/22 @ 13:27 by Nicole Medel [facility]) Housing: Other Alcohol intake: never Patient Tobacco Use Status: Never used Tobacco e-Cigarette/Vaping Use: Never Used Second Hand Smoke Exposure: No service: No 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) Gender identity: Female Cognitive needs: No Hearing needs: No Vision needs: Yes Female Reproductive History Menstrual Age of Menarche: 17 Review of Systems Const All systems reviewed & are unremarkable except as noted in HPI and below ENT Reports Normal hearing present Neuro Reports Normal hearing present Physical Exam Vital Signs: Last Vital Signs Pulse 96 12/15/22 09:08 BP 102/62 12/15/22 09:08 Pulse Ox 98 12/15/22 09:08 Oxygen Delivery Method Room Air 12/15/22 09:08 BMI result Body Mass Index 31.0 Const General: cooperative Nutritional Appearance: obese Orientation/consciousness: patient oriented x3 Neck Neck: Yes full ROM and Yes supple Resp Effort & Inspection: normal respiratory effort and able to speak in complete sentences Neuro General: patient oriented x3 Cranial nerves: Yes Bilaterally intact EOM present, Yes Normal facial strength present, Yes Midline tongue present, Yes Symmetric palate elevation present, Yes Normal hearing present, Yes Ability to bilaterally rotate head present and Yes Ability to bilaterally elevate shoulders present Cognition (Neuro): normal cognition Motor exam (neuro): 5/5 motor strength present throughout, Pronator motor function not present and no tremor noted Psych Appearance: grossly normal Mental Status: mental status grossly normal Speech and movement: Normal speech and movement present Affect: normal affect Attitude: cooperative Assessment & Plan Assessment & Plan (1) Daytime sleepiness: Code(s): R40.0 - Somnolence (2) DARRELL (obstructive sleep apnea): Code(s): G47.33 - Obstructive sleep apnea (adult) (pediatric) Plan Pt is advised to undergo sleep study to assess for sleep apnea. Will f/u with pt after study to discuss results and appropriate treatment options. Wt reduction advised and encouraged daily exercise. Pt to call with any worsening concerns or questions. Orders: Orders RT home sleep study Today G47.33 - Obstructive sleep apnea (adult) (pediatric), R40.0 - Somnolence Coding Level of Care Code New Pt Level 3 (94406) Diagnoses Daytime sleepiness R40.0 DARRELL (obstructive sleep apnea) G47.33
[2022-12-15 09:08] VITALS: BP 102/62; PULSE 96; O2SAT 98; BMI 31.0
== END 2022-12-15 09:32 | disposition home or self-care (01) ==
PROVIDERS: PCP Nurse Practitioner Family; Visit Provider Nurse Practitioner Family
DX: R40.0 Somnolence (principal); G47.33 Obstructive sleep apnea (adult) (pediatric)
CPT/HCPCS: 99203

== ENCOUNTER → 2022-12-15 08:58 | Outpatient (BNVA) | payer MEDICARE, SELFPAY | PROVIDERS: PCP Nurse Practitioner Family; Visit Provider Nurse Practitioner Family | DX: J45.909 Unspecified asthma, uncomplicated (principal); R05.9 Cough, unspecified; R40.0 Somnolence; G47.33 Obstructive sleep apnea (adult) (pediatric) | CPT/HCPCS: 99202; 99212 ==

== ENCOUNTER 2022-12-15 13:17 | Outpatient (AMB) | payer MEDICARE, SELFPAY ==
--- NOTE | 2022-12-15 13:22 | A.OFFVIS_ITS ---
Intake Vital Signs 12/15/22 13:23 Height 5 ft 2 in Weight 170 lb 13.732 oz BMI 31.2 BP 104/62 Blood Pressure Location Rt brachial Position Sitting Pulse 93 Pulse Source Doppler Pulse Oximetry (%) 96 Oxygen Delivery Method Room Air Intake Visit Reasons: Shortness of breath Allergies Penicillins [PENICILLINS] Allergy (Unknown, Verified 12/15/22 13:26) UNKNOWN canagliflozin [Invokana] Adverse Reaction (Unknown, Verified 12/15/22 13:26) unknown statins Allergy (Unknown, Uncoded 12/15/22 09:01) muscle aches HPI Shortness of breath HPI Details 72-year-old lady, nonsmoker, with no david or personal of family history of lung disease referred for evaluation of chronic cough ongoing since April, intermittently in productive of clear sputum, particularly at night. Patient denies dyspnea on exertion. 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 Denies family history of lung disease. Patient has had essentially now on chest x-ray recent pulmonary function tests that also is essentially normal, except some airway reactivity. Patient has been using albuterol MDI several times a day with some relief of her symptoms. 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) Gender identity: Female Cognitive needs: No Hearing needs: No Vision needs: Yes Female Reproductive History Menstrual Age of Menarche: 17 Review of Systems Const Denies daytime sleepiness, Denies excessive sweating, Denies fatigue, Denies fever(s), Denies lethargy, Denies malaise, Denies night sweats, Denies snoring and Denies weight loss Eyes Denies blurry vision and Denies itchy eyes ENT Denies nasal congestion, Denies post nasal drip, Denies sinus pain, Denies sinus pressure and Denies other ( Thrush) Card Denies chest pain, Denies pedal edema, Denies dyspnea, Denies orthopnea and Denies paroxysmal nocturnal dyspnea Resp Reports cough, Denies hemoptysis, Denies excessive phlegm production, Denies dyspnea, Denies snoring and Denies wheezing GI Denies abdominal pain and Denies heartburn Musc Denies myalgias, Denies arthralgias and Denies joint swelling Skin/Breast Denies rash Neuro Denies memory loss and Denies seizure-like activity Psych Denies abnormal sleep pattern, Denies anxiety and Denies memory loss Endo Denies excessive sweating, Denies fatigue and Denies heat intolerance Abdoulaye/Lymph Denies easy bruising Aller/Immun Denies itchy eyes, Denies seasonal rhinorrhea and Denies wheezing Physical Exam Vital Signs: Last Vital Signs Pulse 93 12/15/22 13:23 BP 104/62 12/15/22 13:23 Pulse Ox 96 12/15/22 13:23 Oxygen Delivery Method Room Air 12/15/22 13:23 BMI result Body Mass Index 31.2 Const General: no acute distress and alert Nutritional Appearance: not obese Orientation/consciousness: Other orientation findings ( oriented) HEENT Head: Yes atraumatic Eyes General: appearance normal, both eyes and all related structures Sclerae: sclerae normal EOM: EOMs intact bilaterally Neck Neck: Yes supple Lymphatic: no lymphadenopathy noted Resp Effort & Inspection: normal respiratory effort and no use of accessory muscles Auscultation: clear to auscultation bilaterally Cardio Rate: regular rate Rhythm: regular rhythm Heart sounds: no gallops, no murmurs and no rubs Skin General skin exam: other ( warm) Extrem General: No clubbing, No cyanosis and No edema Assessment & Plan Assessment & Plan (1) Cough: Code(s): R05.9 - Cough, unspecified (2) Reactive airway disease: Code(s): J45.909 - Unspecified asthma, uncomplicated Plan Results of chest imaging and pulmonary function test in reviewed. May have underlying reactive airway disease, as patient derive some relief with using albuterol MDI. Will start on empiric Breo. Medications: New fluticasone furoate-vilanterol 200-25 mcg/dose (Breo Ellipta) 1 inh inhalation DAILY 1 ea 6RF 30 days Coding Level of Care Code New Pt Level 3 (87994) Diagnoses Cough R05.9 Reactive airway disease J45.909
[2022-12-15 13:23] VITALS: BP 104/62; PULSE 93; O2SAT 96; BMI 31.2
== END 2022-12-15 13:50 | disposition home or self-care (01) ==
PROVIDERS: PCP Nurse Practitioner Family; Visit Provider Internal Medicine Pulmonary Disease
DX: R05.9 Cough, unspecified (principal); J45.909 Unspecified asthma, uncomplicated
CPT/HCPCS: 99213

== ENCOUNTER 2022-12-25 18:19 | Emergency (ER) | payer MEDICARE, OTHER, SELFPAY ==
--- NOTE | ~2022-12-25 | XR_ITS ---
EXAMINATION: XR CHEST CLINICAL INFORMATION: Chest pain, back pain. COMPARISON: Chest radiograph 10/13/2022. TECHNIQUE: 2 views of the chest were obtained. FINDINGS: Normal appearance of the cardiomediastinal silhouette. No focal airspace opacity, pleural effusion or pneumothorax. No acute osseous findings. Thoracic spondylosis. Visualized upper abdomen is within normal limits. XR/XR chest 2V IMPRESSION: No acute cardiopulmonary findings. No acute osseous findings.
[2022-12-25 19:01] VITALS: BP 129/77; PULSE 91; RESP 16; TEMP 36.4; O2SAT 98; BMI 30.1
--- NOTE | 2022-12-25 19:02 | ED_ITS ---
HPI - Abdominal Pain General Chief Complaint: General Medical Stated Complaint: Rib pain/Flank pain Time Seen by Provider: 12/25/22 21:20 Source: patient Mode of arrival: ambulatory Limitations: no limitations History of Present Illness HPI narrative: Patient history of asthma and diabetes complaining of pain in left lower ribs last few weeks and sometimes notice pain in the chest spoke to her doctor was about to go hospital patient does not have any chest pain at this time had chest pain at 10:00 lasted only for few seconds sharp was getting worse to take a deep breath and movement denies any shortness of breath no leg pain or swelling Related Data Home Medications Medication Instructions Recorded Confirmed aspirin 81 mg tablet,delayed 81 mg PO DAILY 01/04/20 09/22/22 release meclizine 50 mg tablet 25 mg PO BID PRN dizziness 12/15/22 Previous Rx's Medication Instructions Recorded hydrocortisone 2.5 % topical cream 1 appl LA BID PRN skin irritation 08/24/21 14 days #20 grams fluticasone propionate 50 1 spray intranasal DAILY #16 grams 01/21/22 mcg/actuation nasal spray,suspension ezetimibe 10 mg tablet 10 mg PO DAILY 90 days #90 tabs 04/14/22 cetirizine 10 mg tablet 10 mg PO DAILY PRN allergy 04/16/22 symptoms #30 tabs lancets 33 gauge ([email or web address]Touch Delica #300 ea 05/19/22 Lancets) cyclobenzaprine 10 mg tablet 10 mg PO TID PRN muscle spasm #10 05/21/22 tabs vitamin B complex 1 tab PO DAILY 30 days #30 tabs 06/23/22 losartan 50 mg tablet 50 mg PO DAILY 90 days #90 tabs 07/02/22 albuterol sulfate 90 mcg/actuation 1 inh inhalation QID PRN shortness 08/03/22 aerosol inhaler (Ventolin HFA) of breath or wheezing #8.5 grams [employer] Verio test strips (blood #300 ea 08/14/22 sugar diagnostic) pioglitazone 45 mg tablet 45 mg PO DAILY #90 tabs 09/08/22 diclofenac sodium 75 mg 75 mg PO BID PRN pain 14 days #28 09/19/22 tablet,delayed release tabs gabapentin 100 mg capsule 200 mg (2 x 100 mg) PO BEDTIME 30 09/22/22 days #60 caps sitagliptin phos 50 mg-metformin 1 tab PO BID 90 days #180 tabs 10/31/22 ER 1,000 mg tablet,extend rel 24h mp inhalational spacing device #1 ea 11/27/22 (BreatheRite MDI Spacer) ondansetron 4 mg disintegrating 4 mg PO Q6H PRN nausea and 12/11/22 tablet vomiting #14 tabs fluticasone furoate 200 1 inh inhalation DAILY 30 days #1 12/15/22 mcg-vilanterol 25 mcg/dose ea inhalation powder (Breo Ellipta) magnesium oxide 400 mg (241.3 mg 400 mg PO DAILY 30 days #30 tabs 12/23/22 magnesium) tablet Allergies Allergy/AdvReac Type Severity Reaction Status Date / Time Penicillins [PENICILLINS] Allergy Unknown UNKNOWN Verified 12/15/22 13:26 canagliflozin [Invokana] AdvReac Unknown unknown Verified 12/15/22 13:26 statins Allergy Unknown muscle Uncoded 12/15/22 09:01 aches Review of Systems Review of Systems Yes all other systems are reviewed and are negative PMFSH Past Medical History Medical History Immunization refused Diabetes type 2, controlled Overweight (BMI 25.0-29.9) Dyslipidemia Essential hypertension Type 2 diabetes mellitus with unspecified complications Surgical History Hx of tubal ligation History of appendectomy Family History Family History Father Heart disease Mother Heart disease Sister Breast cancer Social History Social History Housing: Other Alcohol intake: never Patient Tobacco Use Status: Never used Tobacco Smoked in Last 30 Days: No e-Cigarette/Vaping Use: Never Used Second Hand Smoke Exposure: No Use of substances other than those prescribed or required for medical reasons: No Advance Directives: No Advance Directives Information Provided: No service: No 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 Oriented X3. No acute distress. Eyes: PERRLA, No Nystagmus ENT: Pharynx normal. Oral Mucosa moist Neck: Normal inspection. Neck supple. CVS: Normal heart rate and rhythm. Pulses normal. No murmur/rub or gallop Respiratory: No respiratory distress. Equal air entry bilateral, no wheezing/rales/rhonchi Abdomen: Soft and nontender. Bowel sounds are present, no mass palpable, no CVA tenderness Skin: Skin warm and dry. Normal skin color. Normal skin turgor. Extremities: No lower extremity edema. No calf tenderness Neuro: Oriented X 3. No motor deficit. No sensory deficit.No cerebellar signs , cranial nerves II-XII intact Course Course Course Narrative: This is an RME: Additional HPI, ROS, PE not included below will be deferred to primary provider. Patient is a 72-year-old male who presents emergency department for evaluation of pain. Awoke at 03:00 with L flank pain radiating into L ABD. at 10:00 had episode of chest pain, described as sharp pins to anterior chest, resolved after 10 minutes. denies fevers, chills, urinary symptoms, shortness of breath, nausea, vomiting, diarrhea, constipation, hematochezia, melena, genitourinary symptoms, numbness in extremities, weakness. Plan: Labs, EKG, U/A Medical Decision Making Medical Decision Making [facility] Narrative: Patient with nonspecific pain left lower rib area with history of cough off and on no fever no chills no signs of infection no risk factors for DVT or PE lab workup is negative troponin negative EKG normal discharge patient home and does take Tylenol/Motrin patient does not have any chest pain at this time Differential Diagnosis Differential Diagnoses: The differential diagnosis associated with the presentation includes ACS/kidney stone/UTI/pleurisy/pneumonia Admission/Observation Consideration of admission/observation: Escalation of care including admission/observation considered Lab Data [facility] Lab Attestation statement: I reviewed the patient's lab results. 12/25/22 19:37 12/25/22 19:37 Labs: Lab Results 12/25/22 12/25/22 Range/Units 19:37 20:52 WBC 6.4 (4.8-10.8) X10*3/uL RBC 4.10 L (4.20-5.50) X10*6/uL Hgb 12.2 (12.0-16.0) g/dl Hct 37.7 (37.0-47.0) % MCV 92.0 (80.0-98.0) fL MCH 29.8 (27.0-33.0) pg MCHC 32.4 (31.0-35.0) g/dl RDW 14.4 (11.0-16.0) % Plt Count 244 (160-400) X10*3/uL MPV 9.8 (9.4-12.3) fL Immature Gran % (Auto) 0.3 (0.0-0.4) % Neut % (Auto) 58.8 (45-73) % Lymph % (Auto) 31.3 (20-40) % [place] % (Auto) 7.7 (2-11) % Eos % (Auto) 1.3 (0-4) % Baso % (Auto) 0.6 (0-2) % Lymph # (Auto) 2.0 (1.2-4.9) X10*3/uL [place] # (Auto) 0.5 (0.1-1.2) X10*3/uL Eos # (Auto) 0.1 (0.0-0.4) X10*3/uL Baso # (Auto) 0.0 (0.0-0.2) X10*3/uL Abs Immat Gran (auto) 0.02 (0.00-0.03) X10*3/uL Absolute Neuts (auto) 3.7 (2.0-8.3) x10*3/uL Absolute Nucleated RBC 0.000 (0.0-0.012) X10*3/uL Nucleated RBC % (auto) 0.0 (0.0-0.2) /100WBC PT 10.5 L (11.1-13.3) SEC INR 0.9 (0.9-1.1) Sodium 145 (135-145) mmol/L Potassium 3.9 (3.3-5.1) mmol/L Chloride 106 (96-108) mmol/L Carbon Dioxide 31 H (22-29) mmol/L Anion Gap 12 (12-20) BUN 15 (9-16) mg/dL Creatinine 1.01 (0.5-1.4) mg/dL Estim Creat Clear Calc 50.2 Estimated GFR 54 Random Glucose 129 H (60-115) mg/dL Calcium 9.9 (8.4-10.2) mg/dL Total Bilirubin 0.2 (0.0-1.0) mg/dL AST 26 (5-31) U/L ALT 16 (0-31) U/L Alkaline Phosphatase 65 (39-117) U/L Troponin I High Sens < 2.7 (<3.5-17.0) ng/L Total Protein 6.9 (6.5-8.0) g/dL Albumin 4.0 (3.5-5.0) g/dL Urine Color Dark Yellow Urine Appearance Clear Urine pH 6.5 (5.0-9.0) Ur Specific [place] 1.020 (1.005-1.025) Urine Protein Negative (Neg-Trace) mg/dL Urine Glucose (UA) Negative (Negative) mg/dL Urine Ketones Negative (Negative) mg/dL Urine Blood Negative (Negative) Urine Nitrite Negative (Negative) Ur Leukocyte Esterase Negative (Negative) Independent Interpretation I performed an independent interpretation of an: EKG Interpretation: Normal sinus rhythm heart rate 75 beats per minute normal interval normal axis no acute ST-T changes no acute ischemia Discharge Plan Discharge Clinical Impression: Musculoskeletal chest pain Patient Disposition: Home, Self-Care Instructions: Noncardiac Chest Pain (ED) Additional Instructions: Back pain and chest pain likely musculoskeletal Follow-up with PCP Prescriptions: No Action hydrocortisone 2.5 % cream 1 appl LA BID PRN (Reason: skin irritation) 14 Days Qty: 20 1RF fluticasone propionate 50 mcg/actuation spray,suspension 1 spray intranasal DAILY Qty: 16 1RF ezetimibe 10 mg tablet 10 mg PO DAILY 90 Days Qty: 90 3RF (DME) lancets [OneTouch Delica Lancets] 33 gauge misc See Rx Instructions .ROUTE .MEDSUPPLY Qty: 300 2RF Rx Instructions: As directed tree times a day cyclobenzaprine 10 mg tablet 10 mg PO TID PRN (Reason: muscle spasm) Qty: 10 0RF losartan 50 mg tablet 50 mg PO DAILY 90 Days Qty: 90 1RF (DME) OneTouch Verio test strips Strip See Rx Instructions .ROUTE .MEDSUPPLY Qty: 300 3RF Rx Instructions: 3 times a day pioglitazone 45 mg tablet 45 mg PO DAILY Qty: 90 1RF diclofenac sodium 75 mg tablet,delayed release (DR/EC) 75 mg PO BID PRN (Reason: pain) 14 Days Qty: 28 0RF Rx Instructions: do not take with motrin or meloxicam. PLEASE USE SPARINGLY DUE TO DIABETES sitagliptin phos-metformin 50-1,000 mg tablet, ER multiphase 24 hr 1 tab PO BID 90 Days Qty: 180 2RF (DME) BreatheRite MDI Spacer Spacer See Rx Instructions .Route Qty: 1 0RF Rx Instructions: As directed with metered dose inhaler device magnesium oxide 400 mg (241.3 mg magnesium) tablet 400 mg PO DAILY 30 Days Qty: 30 2RF cetirizine 10 mg tablet 10 mg PO DAILY PRN (Reason: allergy symptoms) Qty: 30 0RF gabapentin 100 mg capsule 200 mg PO BEDTIME 30 Days Qty: 60 2RF albuterol sulfate [Ventolin HFA] 90 mcg/actuation HFA aerosol inhaler 1 inh inhalation QID PRN (Reason: shortness of breath or wheezing) Qty: 8.5 1RF ondansetron 4 mg tablet,disintegrating 4 mg PO Q6H PRN (Reason: nausea and vomiting) Qty: 14 0RF vitamin B complex Tablet 1 tab PO DAILY 30 Days Qty: 30 3RF aspirin 81 mg tablet,delayed release (DR/EC) 81 mg PO DAILY meclizine 50 mg tablet 25 mg PO BID PRN (Reason: dizziness) fluticasone furoate-vilanterol [Breo Ellipta] 200-25 mcg/dose blister with device 1 inh inhalation DAILY 30 Days Qty: 1 6RF
--- NOTE | 2022-12-25 19:06 | ECG_ITS ---
Test Reason : chest pain Blood Pressure : / mmHG Vent. Rate : 075 BPM Atrial Rate : 075 BPM P-R Int : 152 ms QRS Dur : 082 ms QT Int : 342 ms P-R-T Axes : 045 023 022 degrees QTc Int : 381 ms Normal sinus rhythm Possible Left atrial enlargement Borderline ECG When compared with ECG of 20-FEB-2022 12:09, No significant change was found Referred By: Ayaka Muñoz Electronically Signed By:ASHLEIGH HANLEY MD
[2022-12-25 19:48] LABS: MANUAL DIFF FLAG NO
[2022-12-25 19:50] LABS: Basophils Percent Auto 0.6 % (0-2); Eosinophils Absolute Auto 0.1 X10*3/uL (0.0-0.4); Eosinophils Percent Auto 1.3 % (0-4); Hematocrit 37.7 % (37.0-47.0); Hemoglobin 12.2 g/dl (12.0-16.0); Imm Gran Abs Auto 0.02 X10*3/uL (0.00-0.03); Imm Gran Pct Auto 0.3 % (0.0-0.4); Lymphocytes Percent Auto 31.3 % (20-40); Mean Corpuscular HGB Conc 32.4 g/dl (31.0-35.0); Mean Corpuscular Hemoglobin 29.8 pg (27.0-33.0); Mean Platelet Volume 9.8 fL (9.4-12.3); Monocytes Absolute Auto 0.5 X10*3/uL (0.1-1.2); Monocytes Percent Auto 7.7 % (2-11); Neutrophils Absolute Auto 3.7 x10*3/uL (2.0-8.3); Neutrophils Percent Auto 58.8 % (45-73); Platelet Count 244 X10*3/uL (160-400); Red Cell Distribution Width 14.4 % (11.0-16.0); White Blood Count 6.4 X10*3/uL (4.8-10.8)
[2022-12-25 19:58] LABS: INTERNATIONAL NORM RATIO 0.9 (0.9-1.1); Prothrombin Time 10.5 SEC (11.1-13.3)
[2022-12-25 20:04] LABS: Alanine Aminotransferase 16 U/L (0-31); Alkaline Phosphatase 65 U/L (39-117); Anion Gap 12 (12-20); Aspartate Amino Transferase 26 U/L (5-31); Bilirubin Total 0.2 mg/dL (0.0-1.0); Blood Urea Nitrogen 15 mg/dL (9-16); Calcium 9.9 mg/dL (8.4-10.2); Carbon Dioxide 31 mmol/L (22-29); Chloride 106 mmol/L (96-108); Creatinine Clr Calc Pharmacy 50.2; Estimated Glomerular Filt Rate 54; Glucose Random 129 mg/dL (60-115); Potassium 3.9 mmol/L (3.3-5.1); Sodium 145 mmol/L (135-145); Total Protein 6.9 g/dL (6.5-8.0)
[2022-12-25 20:07] VITALS: BP 135/53; PULSE 75; RESP 16; O2SAT 97
[2022-12-25 20:11] LABS: Troponin-I High Sensitivity < 2.7 ng/L (<3.5-17.0)
--- NOTE | 2022-12-25 20:17 | PC.NURSE ---
pt ambulatory with steady gait to bathroom to obtain urine sample. pt denies pain at this time. nsr on monitor 76 bpm. vss.
[2022-12-25 21:00] LABS: Appearance Urine Clear; Color Urine Dark Yellow; Glucose Urine UA Negative (Negative); Leukocyte Esterase Urine Negative (Negative); Nitrite Urine Negative (Negative); PH 6.5 (5.0-9.0); Urine Blood Negative (Negative); Urine Ketones Negative (Negative); Urine Protein Negative (Neg-Trace)
== END 2022-12-25 21:52 | disposition home or self-care (01) ==
PROVIDERS: Nurse Practitioner Family; Emergency Provider Internal Medicine; PCP Nurse Practitioner Family
DX: R07.89 Other chest pain (principal); R07.81 Pleurodynia; Z79.899 Other long term (current) drug therapy
CPT/HCPCS: 36415; 71046; 80053; 81003; 84484; 85025; 85610; 93005; 99283; 99284

== ENCOUNTER 2022-12-28 15:15 | Outpatient (AMB) | payer MEDICARE, SELFPAY ==
[2022-12-28 15:37] VITALS: BP 130/64; BMI 30.5
--- NOTE | 2022-12-28 15:37 | MHC.OFFVIS ---
Intake Vital Signs 12/28/22 15:37 Height 5 ft 3 in Weight 172 lb 6.424 oz BMI 30.5 BP 130/64 Blood Pressure Location Lt brachial Position Sitting Intake Visit Reasons: fu re chest pains on an off [employer] Front Required: No Allergies Penicillins [PENICILLINS] Allergy (Unknown, Verified 12/28/22 15:40) UNKNOWN canagliflozin [Invokana] Adverse Reaction (Unknown, Verified 12/28/22 15:40) unknown statins Allergy (Unknown, Uncoded 12/15/22 09:01) muscle aches Medication List - Last Reconciled 12/28/22 by ANDRADE Childress albuterol sulfate 90 mcg/actuation (Ventolin HFA) 1 inh inhalation QID PRN aspirin 81 mg PO DAILY cetirizine 10 mg PO DAILY PRN cyclobenzaprine 10 mg PO TID PRN diclofenac sodium 75 mg PO BID PRN 14 days ezetimibe 10 mg PO DAILY 90 days fluticasone furoate-vilanterol 200-25 mcg/dose (Breo Ellipta) 1 inh inhalation DAILY 30 days fluticasone propionate 50 mcg/actuation 1 spray intranasal DAILY gabapentin 200 mg (2 x 100 mg) PO BEDTIME 30 days hydrocortisone 2.5% 1 appl DC BID PRN 14 days inhalational spacing device (BreatheRite MDI Spacer) As directed with metered dose inhaler device lancets (OneTouch Delica Lancets) As directed tree times a day losartan 50 mg PO DAILY 90 days magnesium oxide 400 mg PO DAILY 30 days meclizine 25 mg PO BID PRN ondansetron 4 mg PO Q6H PRN OneTouch Verio test strips (blood sugar diagnostic) 3 times a day NS pioglitazone 45 mg PO DAILY sitagliptin phos-metformin 50-1,000 mg ER 1 tab PO BID 90 days vitamin B complex 1 tab PO DAILY 30 days HPI fu re chest pains on an off HPI Details Kylah is a 72-year-old female with past medical history of hypertension, hyperlipidemia, diabetes who presents for evaluation of chest discomfort. Her last prior visit to our office was 05/23/2020. Today she reports that she started with a cough and cold symptoms in April of this year. She continued to have a cough and shortness of breath. More recently she was diagnosed with bronchitis and started on inhaler. Inhaler is helping her breathe better. She was in the ER last week with report back discomfort. She ruled out for ACS. She tells me her pain is still present and it is below her scapula on the left. She tells me it has been present for the last 2 months. It occurs daily. If she coughs it feels relieved for a little while. Her discomfort is not worse with deep inspiration, movement of her body, physical activity such as walking. No other chest discomfort, palpitations, presyncope, syncope, PND, orthopnea or edema. 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) Gender identity: Female Cognitive needs: No Hearing needs: No Vision needs: Yes Female Reproductive History Menstrual Age of Menarche: 17 Review of Systems Const All systems reviewed & are unremarkable except as noted in HPI and below ENT Denies dizziness Card Denies chest pain, Denies chest pain at rest, Denies chest pain with activity, Denies rapid heart rate, Denies pedal edema, Denies edema, Denies leg edema, Denies lightheadedness, Denies palpitations, Reports dyspnea, Denies dyspnea on exertion and Denies orthopnea Resp Details: pain left lateral back, below shoulder blade Reports cough, Reports dyspnea and Denies dyspnea on exertion GI Denies hematochezia and Denies change in stool character Musc Denies abnormal gait, Denies limited range of motion, Denies muscle cramps, Denies muscle weakness, Denies numbness, Denies radiating pain into limb, Denies stiffness and Denies tingling Neuro Denies abnormal gait, Denies dizziness, Denies numbness and Denies tingling Endo Denies palpitations Physical Exam Vital Signs: Last Vital Signs BP 130/64 12/28/22 15:37 BMI result Body Mass Index 30.5 Const General: cooperative, healthy appearing, comfortable and no acute distress Orientation/consciousness: patient oriented x3 Neck Neck: Yes normal visual inspection Resp Effort & Inspection: normal respiratory effort Auscultation: clear to auscultation bilaterally, no crackles, no rales, no rhonchi and no wheezes Cardio Jugular venous distension: no JVD Rate: regular rate Rhythm: regular rhythm Heart sounds: S1 normal heart sound present, S2 normal heart sound present, no murmurs and no rubs Neuro General: patient oriented x3 Extrem General: Yes normal to inspection and No no pedal edema Psych Appearance: grossly normal Mental Status: mental status grossly normal Speech and movement: Normal speech and movement present Assessment & Plan Assessment & Plan (1) Precordial chest pain: Code(s): R07.2 - Precordial pain Plan: Atypical pain occurring in her back, approximally 2 in below the scapula on left. Has been occurring for the last 2 months, daily, not worse with physical activity. Some improvement with coughing as she says it seems to relieve it. This symptom is not typical for angina however more likely to be chest wall/musculoskeletal in nature. EKG done on 12/25/2022 showing normal sinus rhythm, no acute ST or T-wave abnormalities, rate 75. Troponins negative that day. Determined to have rib discomfort. Echocardiogram done 12/09/2022 showed EF 60-65%, mild LVH, normal RV. She does have cardiac risk factors however no further cardiac testing needed for this pain. Signs and symptoms of angina reviewed with her. In the past she had reported more cardiac sounding chest discomfort however that symptom has fully resolved. Continue with cardiac risk factor modification. Cardiology follow-up in 6 months, sooner if needed (2) SOB (shortness of breath): Code(s): R06.02 - Shortness of breath (3) Cough: Code(s): R05.9 - Cough, unspecified Qualifiers: Cough type: subacute Qualified Code(s): R05.2 - Subacute cough (4) Essential hypertension: Code(s): I10 - Essential (primary) hypertension Plan: Well controlled at this time. No med changes made Coding Level of Care Code Est Pt Level 4 (93381) Diagnoses Precordial chest pain R07.2 SOB (shortness of breath) R06.02 Subacute cough R05.2 Cough type: subacute Essential hypertension I10 Time Spent (min) 28
== END 2022-12-28 16:11 | disposition home or self-care (01) ==
PROVIDERS: PCP Nurse Practitioner Family; Visit Provider Nurse Practitioner Family
DX: R07.2 Precordial pain (principal); R06.02 Shortness of breath; R05.2 Subacute cough; I10 Essential (primary) hypertension
CPT/HCPCS: 99214

== ENCOUNTER → 2022-12-28 15:15 | Outpatient (BNVA) | payer MEDICARE, SELFPAY | PROVIDERS: PCP Nurse Practitioner Family; Visit Provider Nurse Practitioner Family | DX: R07.2 Precordial pain (principal); R06.02 Shortness of breath; I10 Essential (primary) hypertension; R05.2 Subacute cough | CPT/HCPCS: 99212 ==

== ENCOUNTER 2023-01-14 14:18 | Outpatient (AMB) | payer MEDICARE, SELFPAY ==
[2023-01-14 14:19] VITALS: BP 111/58; PULSE 90; O2SAT 97; BMI 30.7
--- NOTE | 2023-01-14 14:19 | A.OFFVIS_ITS ---
Intake Vital Signs 01/14/23 14:19 Height 5 ft 3 in Weight 173 lb 1.006 oz BMI 30.7 BP 111/58 L Blood Pressure Location Lt brachial Position Sitting Pulse 90 Pulse Source Doppler Pulse Oximetry (%) 97 Oxygen Delivery Method Room Air Intake Visit Reasons: Shortness of breath Allergies Penicillins [PENICILLINS] Allergy (Unknown, Verified 01/14/23 14:25) UNKNOWN canagliflozin [Invokana] Adverse Reaction (Unknown, Verified 01/14/23 14:25) unknown statins Allergy (Unknown, Uncoded 12/15/22 09:01) muscle aches HPI Shortness of breath HPI Details 72-year-old lady, nonsmoker, with no david or personal of family history of lung disease referred for evaluation of chronic cough ongoing since April, intermittently in productive of clear sputum, particularly at night. Patient denies dyspnea on exertion. 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 Denies family history of lung disease. Patient has had essentially now on chest x-ray recent pulmonary function tests that also is essentially normal, except some airway reactivity. Patient has been using albuterol MDI several times a day with some relief of her symptoms. At the last office visit patient was started on Breo with no symptomatic improve ment. She does get some improvement with albuterol that she continues to use. 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) Gender identity: Female Cognitive needs: No Hearing needs: No Vision needs: Yes Female Reproductive History Menstrual Age of Menarche: 17 Review of Systems Const Denies daytime sleepiness, Denies excessive sweating, Denies fatigue, Denies fever(s), Denies lethargy, Denies malaise, Denies night sweats, Denies snoring and Denies weight loss Eyes Denies blurry vision and Denies itchy eyes ENT Denies nasal congestion, Denies post nasal drip, Denies sinus pain, Denies sinus pressure and Denies other ( Thrush) Card Denies chest pain, Denies pedal edema, Denies dyspnea, Denies orthopnea and Denies paroxysmal nocturnal dyspnea Resp Denies cough, Denies hemoptysis, Denies excessive phlegm production, Denies dyspnea, Denies snoring and Denies wheezing GI Denies abdominal pain and Denies heartburn Musc Denies myalgias, Denies arthralgias and Denies joint swelling Skin/Breast Denies rash Neuro Denies memory loss and Denies seizure-like activity Psych Denies abnormal sleep pattern, Denies anxiety and Denies memory loss Endo Denies excessive sweating, Denies fatigue and Denies heat intolerance Abdoulaye/Lymph Denies easy bruising Aller/Immun Denies itchy eyes, Denies seasonal rhinorrhea and Denies wheezing Physical Exam Vital Signs: Last Vital Signs Pulse 90 01/14/23 14:19 BP 111/58 L 01/14/23 14:19 Pulse Ox 97 01/14/23 14:19 Oxygen Delivery Method Room Air 01/14/23 14:19 BMI result Body Mass Index 30.7 Const General: no acute distress and alert Nutritional Appearance: not obese Orientation/consciousness: Other orientation findings ( oriented) HEENT Head: Yes atraumatic Eyes General: appearance normal, both eyes and all related structures Sclerae: sclerae normal EOM: EOMs intact bilaterally Neck Neck: Yes supple Lymphatic: no lymphadenopathy noted Resp Effort & Inspection: normal respiratory effort and no use of accessory muscles Auscultation: clear to auscultation bilaterally Cardio Rate: regular rate Rhythm: regular rhythm Heart sounds: no gallops, no murmurs and no rubs Skin General skin exam: other ( warm) Extrem General: No clubbing, No cyanosis and No edema Assessment & Plan Assessment & Plan (1) Reactive airway disease: Code(s): J45.909 - Unspecified asthma, uncomplicated Plan: No symptomatic improvement with Breo. Will discontinue and continue only on albuterol MDI. (2) Cough: Code(s): R05.9 - Cough, unspecified Qualifiers: Cough type: subacute Qualified Code(s): R05.2 - Subacute cough Plan: Improved significantly. (3) Hiatal hernia: Code(s): K44.9 - Diaphragmatic hernia without obstruction or gangrene Plan: Will obtain CT chest for further evaluation. Orders: Orders CT chest wo IV con Today K44.9 - Diaphragmatic hernia without obstruction or gangrene Medications: Discontinued fluticasone furoate-vilanterol 200-25 mcg/dose (Breo Ellipta) Discontinued Reason: Doctor's Order 1 inh inhalation DAILY 1 ea 6RF 30 days Coding Level of Care Code Est Pt Level 4 (31501) Diagnoses Reactive airway disease J45.909 Subacute cough R05.2 Cough type: subacute Hiatal hernia K44.9
== END 2023-01-14 14:39 | disposition home or self-care (01) ==
PROVIDERS: PCP Nurse Practitioner Family; Visit Provider Internal Medicine Pulmonary Disease
DX: J45.909 Unspecified asthma, uncomplicated (principal); R05.2 Subacute cough; K44.9 Diaphragmatic hernia without obstruction or gangrene
CPT/HCPCS: 99214

== ENCOUNTER → 2023-01-14 14:18 | Outpatient (BNVA) | payer MEDICARE, SELFPAY | PROVIDERS: PCP Nurse Practitioner Family; Visit Provider Internal Medicine Pulmonary Disease | DX: J45.909 Unspecified asthma, uncomplicated (principal); R05.2 Subacute cough; K44.9 Diaphragmatic hernia without obstruction or gangrene; Z57.5 Occupational exposure to toxic agents in other industries | CPT/HCPCS: 99212 ==

== ENCOUNTER 2023-02-17 13:54 | Outpatient (AMB) | payer MEDICARE, SELFPAY ==
[2023-02-17 14:02] VITALS: BP 112/62; PULSE 74; O2SAT 97; BMI 31.4
--- NOTE | 2023-02-17 14:02 | MHC.OFFVIS ---
Intake Vital Signs 02/17/23 14:02 Height 5 ft 3 in Weight 177 lb 7.554 oz BMI 31.4 BP 112/62 Blood Pressure Location Rt brachial Position Sitting Pulse 74 Pulse Source Doppler Pulse Oximetry (%) 97 Oxygen Delivery Method Room Air Intake Visit Reasons: Shortness of breath Allergies Penicillins [PENICILLINS] Allergy (Unknown, Verified 02/17/23 14:07) UNKNOWN canagliflozin [Invokana] Adverse Reaction (Unknown, Verified 02/17/23 14:07) unknown statins Allergy (Unknown, Uncoded 12/15/22 09:01) muscle aches HPI Shortness of breath HPI Details 72-year-old lady, nonsmoker, with no prior personal of family history of lung disease referred for evaluation of chronic cough ongoing since April, intermittently in productive of clear sputum, particularly at night. Patient denies dyspnea on exertion. 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 Denies family history of lung disease. Patient has had essentially now on chest x-ray recent pulmonary function tests that also is essentially normal, except some airway reactivity. Patient has been using albuterol MDI several times a day with some relief of her symptoms. After the last office visit patient continued with he nonproductive cough that response will 2 benzonatate, however she has not completed her CT chest. 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) Gender identity: Female Cognitive needs: No Hearing needs: No Vision needs: Yes Female Reproductive History Menstrual Age of Menarche: 17 Review of Systems Const Denies daytime sleepiness, Denies excessive sweating, Denies fatigue, Denies fever(s), Denies lethargy, Denies malaise, Denies night sweats, Denies snoring and Denies weight loss Eyes Denies blurry vision and Denies itchy eyes ENT Denies nasal congestion, Denies post nasal drip, Denies sinus pain, Denies sinus pressure and Denies other ( Thrush) Card Denies chest pain, Denies pedal edema, Denies dyspnea, Denies orthopnea and Denies paroxysmal nocturnal dyspnea Resp Reports cough, Denies hemoptysis, Denies excessive phlegm production, Denies dyspnea, Denies snoring and Denies wheezing GI Denies abdominal pain and Denies heartburn Musc Denies myalgias, Denies arthralgias and Denies joint swelling Skin/Breast Denies rash Neuro Denies memory loss and Denies seizure-like activity Psych Denies abnormal sleep pattern, Denies anxiety and Denies memory loss Endo Denies excessive sweating, Denies fatigue and Denies heat intolerance Abdoulaye/Lymph Denies easy bruising Aller/Immun Denies itchy eyes, Denies seasonal rhinorrhea and Denies wheezing Physical Exam Vital Signs: Last Vital Signs Pulse 74 02/17/23 14:02 BP 112/62 02/17/23 14:02 Pulse Ox 97 02/17/23 14:02 Oxygen Delivery Method Room Air 02/17/23 14:02 BMI result Body Mass Index 31.4 Const General: no acute distress and alert Nutritional Appearance: not obese Orientation/consciousness: Other orientation findings ( oriented) HEENT Head: Yes atraumatic Eyes General: appearance normal, both eyes and all related structures Sclerae: sclerae normal EOM: EOMs intact bilaterally Neck Neck: Yes supple Lymphatic: no lymphadenopathy noted Resp Effort & Inspection: normal respiratory effort and no use of accessory muscles Auscultation: clear to auscultation bilaterally Cardio Rate: regular rate Rhythm: regular rhythm Heart sounds: no gallops, no murmurs and no rubs Skin General skin exam: other ( warm) Extrem General: No clubbing, No cyanosis and No edema Assessment & Plan Assessment & Plan (1) Reactive airway disease: Code(s): J45.909 - Unspecified asthma, uncomplicated Plan: Baseline controlled on albuterol MDI. Continue current regimen. (2) Cough: Code(s): R05.9 - Cough, unspecified Qualifiers: Cough type: subacute Qualified Code(s): R05.2 - Subacute cough Plan: No response to P inhaled corticosteroids. Symptomatically better with benzonatate. Continue for symptomatic control. CT chest is pending. Medications: New benzonatate 200 mg PO TID 90 caps 6RF 30 days Coding Level of Care Code Est Pt Level 4 (55551) Diagnoses Reactive airway disease J45.909 Subacute cough R05.2 Cough type: subacute
== END 2023-02-17 14:25 | disposition home or self-care (01) ==
PROVIDERS: PCP Nurse Practitioner Family; Visit Provider Internal Medicine Pulmonary Disease
DX: J45.909 Unspecified asthma, uncomplicated (principal); R05.2 Subacute cough
CPT/HCPCS: 99214

== ENCOUNTER → 2023-02-17 13:54 | Outpatient (BNVA) | payer MEDICARE, SELFPAY | PROVIDERS: PCP Nurse Practitioner Family; Visit Provider Internal Medicine Pulmonary Disease | DX: J45.909 Unspecified asthma, uncomplicated (principal); R05.2 Subacute cough | CPT/HCPCS: 99212 ==

== ENCOUNTER 2023-02-19 13:33 | Outpatient (REF) | payer MEDICARE, SELFPAY ==
--- NOTE | ~2023-02-19 | CT_ITS ---
EXAMINATION: CT CHEST WITHOUT CONTRAST CLINICAL INFORMATION: Diaphragmatic hernia. COMPARISON: None available. TECHNIQUE: Multidetector volumetric CT imaging of the chest was done. Axial MIP volume rendering provided. Sagittal and coronal reformatted images were obtained. This CT examination was performed using dose optimization techniques as appropriate, variously including the following: *Automated exposure control *Adjustment of mA and/or kV according to patient size (this includes techniques or standardized protocols for targeted exams where dose is matched to indication/reason for exam; i.e. extremities or head) *Use of iterative reconstruction technique DLP: 171 mGy-cm FINDINGS: LUNGS: No suspicious pulmonary nodule. No focal consolidation. Central airways are patent. MEDIASTINUM: Possible right posterior thyroid nodule partially imaged. No bulky axillary, hilar or mediastinal lymphadenopathy. Great vessels are of normal caliber. Heart size is normal. No pericardial effusion. Elevated right hemidiaphragm. CORONARY ARTERY CALCIFICATION: Moderate. PLEURA: There is no pleural effusion. No pleural mass or thickening. UPPER ABDOMEN: 2.2 x 1.7 cm left adrenal adenoma. OSSEOUS STRUCTURES: No destructive bone lesions. CT/CT chest wo IV con IMPRESSION: Elevated right hemidiaphragm. No suspicious pulmonary nodule. 2.2 x 1.7 cm left adrenal adenoma. Possible right posterior thyroid nodule. Advise correlation with dedicated thyroid ultrasound.
== END 2023-02-19 13:34 | disposition home or self-care (01) ==
LOC: HO.CT 13:33
PROVIDERS: PCP Nurse Practitioner Family; Visit Provider Internal Medicine Pulmonary Disease
DX: K44.9 Diaphragmatic hernia without obstruction or gangrene (principal)
CPT/HCPCS: 71250

== ENCOUNTER 2023-02-25 13:36 | Outpatient (AMB) | payer MEDICARE, SELFPAY ==
[2023-02-25 13:38] VITALS: BP 118/62; PULSE 83; O2SAT 99; BMI 32.0
--- NOTE | 2023-02-25 13:38 | A.OFFVIS_ITS ---
Intake Vital Signs 02/25/23 13:38 Height 5 ft 3 in Weight 180 lb 12.465 oz BMI 32.0 BP 118/62 Blood Pressure Location Rt brachial Position Sitting Pulse 83 Pulse Source Doppler Pulse Oximetry (%) 99 Oxygen Delivery Method Room Air Intake Visit Reasons: ct scan f/u Allergies Penicillins [PENICILLINS] Allergy (Unknown, Verified 02/17/23 14:07) UNKNOWN canagliflozin [Invokana] Adverse Reaction (Unknown, Verified 02/17/23 14:07) unknown statins Allergy (Unknown, Uncoded 12/15/22 09:01) muscle aches HPI ct scan f/u HPI Details 72-year-old lady, nonsmoker, with no david or personal of family history of lung disease referred for evaluation of chronic cough ongoing since April, intermittently in productive of clear sputum, particularly at night. Patient denies dyspnea on exertion. She used to be employed with exposure to industrial solvents. Denies family history of lung disease. Patient has had essentially now on chest x-ray recent pulmonary function tests that also is essentially normal, except some airway reactivity. She continues with albuterol MDI with reasonable control of her symptoms. She did have CT chest that demonstrated no pulmonary fibrosis or nodules. 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) Gender identity: Female Cognitive needs: No Hearing needs: No Vision needs: Yes Female Reproductive History Menstrual Age of Menarche: 17 Review of Systems Const Denies daytime sleepiness, Denies excessive sweating, Denies fatigue, Denies fever(s), Denies lethargy, Denies malaise, Denies night sweats, Denies snoring and Denies weight loss Eyes Denies blurry vision and Denies itchy eyes ENT Denies nasal congestion, Denies post nasal drip, Denies sinus pain, Denies sinus pressure and Denies other ( Thrush) Card Denies chest pain, Denies pedal edema, Denies dyspnea, Denies orthopnea and Denies paroxysmal nocturnal dyspnea Resp Denies cough, Denies hemoptysis, Denies excessive phlegm production, Denies dyspnea, Denies snoring and Denies wheezing GI Denies abdominal pain and Denies heartburn Musc Denies myalgias, Denies arthralgias and Denies joint swelling Skin/Breast Denies rash Neuro Denies memory loss and Denies seizure-like activity Psych Denies abnormal sleep pattern, Denies anxiety and Denies memory loss Endo Denies excessive sweating, Denies fatigue and Denies heat intolerance Abdoulaye/Lymph Denies easy bruising Aller/Immun Denies itchy eyes, Denies seasonal rhinorrhea and Denies wheezing Physical Exam Vital Signs: Last Vital Signs Pulse 83 02/25/23 13:38 BP 118/62 02/25/23 13:38 Pulse Ox 99 02/25/23 13:38 Oxygen Delivery Method Room Air 02/25/23 13:38 BMI result Body Mass Index 32.0 Const General: no acute distress and alert Nutritional Appearance: not obese Orientation/consciousness: Other orientation findings ( oriented) HEENT Head: Yes atraumatic Eyes General: appearance normal, both eyes and all related structures Sclerae: sclerae normal EOM: EOMs intact bilaterally Neck Neck: Yes supple Lymphatic: no lymphadenopathy noted Resp Effort & Inspection: normal respiratory effort and no use of accessory muscles Auscultation: clear to auscultation bilaterally Cardio Rate: regular rate Rhythm: regular rhythm Heart sounds: no gallops, no murmurs and no rubs Skin General skin exam: other ( warm) Extrem General: No clubbing, No cyanosis and No edema Assessment & Plan Assessment & Plan (1) Reactive airway disease: Code(s): J45.909 - Unspecified asthma, uncomplicated Plan: Well controlled on as needed albuterol MDI continue current regimen. (2) Cough: Code(s): R05.9 - Cough, unspecified Qualifiers: Cough type: subacute Qualified Code(s): R05.2 - Subacute cough Plan: No organic cause noted. Symptoms well controlled on benzonatate. Continue current regimen. Coding Level of Care Code Est Pt Level 4 (41679) Diagnoses Reactive airway disease J45.909 Subacute cough R05.2 Cough type: subacute
== END 2023-02-25 13:52 | disposition home or self-care (01) ==
PROVIDERS: PCP Nurse Practitioner Family; Visit Provider Internal Medicine Pulmonary Disease
DX: J45.909 Unspecified asthma, uncomplicated (principal); R05.2 Subacute cough
CPT/HCPCS: 99214

== ENCOUNTER → 2023-02-25 13:36 | Outpatient (BNVA) | payer MEDICARE, SELFPAY | PROVIDERS: PCP Nurse Practitioner Family; Visit Provider Internal Medicine Pulmonary Disease | DX: J45.909 Unspecified asthma, uncomplicated (principal); R05.2 Subacute cough | CPT/HCPCS: 99212 ==

== ENCOUNTER 2023-03-11 14:28 | Outpatient (REF) | payer MEDICARE, SELFPAY ==
--- NOTE | ~2023-03-11 | US_ITS ---
EXAMINATION: US THYROID CLINICAL INFORMATION: Nontoxic single thyroid nodule. COMPARISON: None available. TECHNIQUE: Linear transducer grayscale and color Doppler examination with attention to the region of the thyroid. FINDINGS: SIZE: Measurements of the thyroid lobes and nodules are given in sagittal, anteroposterior and transverse dimensions respectively. Right Thyroid Lobe: 4.7 x 1.7 x 1.5 cm, volume 6.2 mL. Parenchyma: The gland echotexture is homogeneous. Thyroid vascularity is normal. Left Thyroid Lobe: 4.0 x 1.7 x 1.3 cm, volume 4.5 mL. Parenchyma: The gland echotexture is homogeneous. Thyroid vascularity is normal. Isthmus: 0.34 cm in maximum AP dimension. No focal thyroid nodule is seen. NODES: No lymphadenopathy is seen in the tissue surrounding the thyroid gland. US/US thyroid IMPRESSION: Unremarkable examination. ACR TI-RADS RECOMMENDATION REFERENCE: Ultrasound-guided fine-needle aspiration, followup ultrasound, no further follow up. * TR1 (0 point) and TR2 (2 points): No FNA or follow up. * TR3 (3 points): FNA if more than or equal to 2.5 cm in maximum dimension, followup ultrasound in 1, 3 and 5 years if 1.5 to 2.4 cm in maximum dimension. * TR4 (4-6 points): FNA if more than or equal to 1.5 cm in maximum dimension, followup ultrasound in 1, 2, 3 and 5 years if 1 to 1.4 cm in maximum dimension. * TR5 (more than or equal to 7 points): FNA if more than or equal to 1 cm in maximum dimension, followup ultrasound every year for 5 years if 0.5 to 0.9 cm in maximum dimension. * TR3, TR4 or TR5 nodules that are below the size threshold for followup receive no follow up.
== END 2023-03-11 14:29 | disposition home or self-care (01) ==
LOC: HO.US 14:28
PROVIDERS: PCP Nurse Practitioner Family; Visit Provider Nurse Practitioner Family
DX: E04.1 Nontoxic single thyroid nodule (principal)
CPT/HCPCS: 76536

== ENCOUNTER 2023-04-01 07:44 | Outpatient (REF) | payer MEDICARE, SELFPAY ==
[2023-04-01 11:48] LABS: Alanine Aminotransferase 20 U/L (0-31); Alkaline Phosphatase 66 U/L (39-117); Anion Gap 11 (12-20); Aspartate Amino Transferase 27 U/L (5-31); Bilirubin Total 0.2 mg/dL (0.0-1.0); Blood Urea Nitrogen 20 mg/dL (9-16); Calcium 9.9 mg/dL (8.4-10.2); Carbon Dioxide 27 mmol/L (22-29); Chloride 106 mmol/L (96-108); Estimated Glomerular Filt Rate 54; Glucose Random 139 mg/dL (60-115); Potassium 4.4 mmol/L (3.3-5.1); Sodium 140 mmol/L (135-145); Total Protein 6.9 g/dL (6.5-8.0)
[2023-04-01 12:03] LABS: B Type Natriuretic Peptide 15 pg/mL (<100)
== END 2023-04-01 07:45 | disposition home or self-care (01) ==
LOC: HO.HMGCLDS 07:44
PROVIDERS: PCP Nurse Practitioner Family; Visit Provider Nurse Practitioner Family
DX: R06.01 Orthopnea (principal); J98.6 Disorders of diaphragm
CPT/HCPCS: 36415; 80053; 83880

== ENCOUNTER 2023-04-05 07:40 | Outpatient (AMB) | payer MEDICARE, SELFPAY ==
--- NOTE | 2023-04-05 07:51 | MHC.PC.OV ---
Vital Signs 04/05/23 07:52 Height 5 ft 3 in Weight 175 lb BMI 31.0 BP 124/76 Blood Pressure Location Lt brachial Position Sitting Pulse 69 Pulse Source Pulse Oximeter Pulse Oximetry (%) 95 Oxygen Delivery Method Room Air Intake Visit Reasons: 4 month fu Intake Note: Pt is here today for 4 months follow up visit. Allergies Penicillins [PENICILLINS] Allergy (Unknown, Verified 04/05/23 07:54) UNKNOWN canagliflozin [Invokana] Adverse Reaction (Unknown, Verified 04/05/23 07:54) unknown statins Allergy (Unknown, Uncoded 04/05/23 07:54) muscle aches Tobacco use date assessed: 04/05/23 Fall risk assessment: No Falls in past year Last assessed Fall Risk: 04/05/23 Dental Screening Dental Screen Date: 04/05/23 Did you have a dental visit in the last 12 months?: No Did you have a dental problem in the last 6 months where you did not have access to dental care?: No Was dental information given to patient?: Patient declined HPI 4 month fu HPI Details Pt is a diabetic, on an ARB. A1C in office today is 6.9. Microalbumin is up to date. Denies polyuria, polydipsia, and neuropathy. Pt denies any signs and symptoms of hypoglycemia and does know how to correct it. Informed pt that she can obtain her pneumonia vaccine from her pharmacy. 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 1. Little interest or pleasure in doing things: not at all 2. Feeling down, depressed, or hopeless: several days 3. Trouble falling or staying asleep, or sleeping too much: nearly every day 4. Feeling tired or having little energy: several days 5. Poor appetite or overeating: not at all 6. Feeling bad about yourself - or that you are a failure or have let yourself or your family down: more than half the days 7. Trouble concentrating on things, such as reading the newspaper or watching television: nearly every day 8. Moving or speaking so slowly that other people could have noticed. Or the opposite - being so fidgety or restless that you have been moving around a lot more than usual: not at all 9. Thoughts that you would be better off or of hurting yourself in some way: not at all Total score: 10 Depression Screening Interpretation: Positive Depression Screening Done: Yes 11288 - PHQ-9 Billing: Yes Source: Developed by Drs. Remy Castanon, Tabby Scott, Robert Reynolds and colleagues, with an educational fe from [employer]. Thrive Questionnaire Date Thrive assessed: 04/05/23 I am a: Patient What is your living situation today?: I have a steady place to live Within the past 12 months, did the food you bought not last and you didn't have the money to get more?: Sometimes True Within the past 12 months, did you worry whether your food would run out before you got money to buy more?: Sometimes True Do you have trouble paying for medicines?: No Do you have trouble getting transportation to medical appointments?: No Do you have trouble paying your heating and electricity bill?: Yes Do you have trouble taking care of your child, family member or friend?: No Do you have trouble with day-to-day activities such as bathing, preparing meals, shopping, managing finances, etc.?: No Are you currently unemployed and looking for a job?: No Are you interested in more education?: No THRIVE Score: 3 AUDIT C Alcohol Use Questionnaire (AUDIT-C) 1. How often do you have a drink containing alcohol?: Never 3. How often do you have six or more drinks on one occasion?: Never Total Score: 0 SHAWNEE-7 AMB Questionnaire SHAWNEE-7 Date SHAWNEE - 7 assessed: 04/05/23 Feeling nervous, anxious, or on edge: 0 = Not at all Not being able to stop or control worryin = More than half the days Worrying too much about different things: 1 = Several days Trouble relaxin = Nearly every day Being so restless that it is hard to sit still: 0 = Not at all Becoming easily annoyed or irritable: 0 = Not at all Feeling afraid as if something awful might happen: 1 = Several days Total SHAWNEE-7 score (0-4 normal; 5-9 mild; 10-14 moderate; 15-21 severe): 7 Source: Developed by Drs. Remy Castanon, Tabby Scott, Robert Reynolds and colleagues, with an educational fe from [employer]. Review of Systems Const Reports as per HPI Physical exam (Primary Care) Vital Signs: Last Vital Signs Pulse 69 04/05/23 07:52 BP 124/76 04/05/23 07:52 Pulse Ox 95 04/05/23 07:52 Oxygen Delivery Method Room Air 04/05/23 07:52 BMI result Body Mass Index 31.0 Tobacco/Smoking Status: Tobacco use Status Tobacco use date assessed 04/05/23 04/05/23 07:56 Patient Tobacco Use Status Never used Tobacco 04/05/23 07:56 e-Cigarette/Vaping Use Never Used 04/05/23 07:56 Depression Screening Interpretation: Positive Thrive Assessment: Date of Thrive Assessment Date Thrive assessed 03/03/22 04/05/23 07:56 Const General: cooperative Nutritional Appearance: obese Orientation/consciousness: patient oriented x3 Resp Effort & Inspection: normal respiratory effort Auscultation: clear to auscultation bilaterally Cardio Other: ? very faint systolic murmur Rate: regular rate Rhythm: regular rhythm Heart sounds: S1 normal heart sound present and S2 normal heart sound present Neuro General: patient oriented x3 Extrem Other: bilat feet: + sensation with use of monofilament, feet intact Psych Appearance: grossly normal Mental Status: mental status grossly normal Speech and movement: Normal speech and movement present Affect: normal affect Attitude: cooperative Thought process: Normal thought process present Thought content: Normal thought content present Insight: Good insight present (Psych) Judgement: Good judgement present (Psych) Results AMB Hemoglobin A1c AMB Hemoglobin A1c 6.9 % Last Edit by Mike López CMA on 04/05/23 08:36 Results Reviewed Results Reviewed: Laboratory Last Values Hgb A1c (Clinic) 6.9 % (4.0-6.0) H 04/05/23 08:35 Assessment and Plan Assessment & Plan (1) Type 2 diabetes mellitus with unspecified complications: Code(s): E11.8 - Type 2 diabetes mellitus with unspecified complications Plan: Labs ordered Plan The patient agreed to the use of a medical records clerk for this encounter. Scribed for OMAR Benton by Simran Carrillo medical records clerk, on 04/05/2023 at 08:05 EST. Orders: Orders TSH reflex Free T4 Today E11.8 - Type 2 diabetes mellitus with unspecified complications UA CC w/rflx Micro + Cult Today E11.8 - Type 2 diabetes mellitus with unspecified complications Lipid Panel Today E11.8 - Type 2 diabetes mellitus with unspecified complications AMB Hemoglobin A1c Today Z13.9 - Encounter for screening, unspecified Complete Blood Count Auto Diff Today E11.8 - Type 2 diabetes mellitus with unspecified complications Comprehensive [place]. Panel Fast Today E11.8 - Type 2 diabetes mellitus with unspecified complications Coding Level of Care Code Est Pt Level 3 (68376) Diagnoses Type 2 diabetes mellitus with unspecified complications E11.8
[2023-04-05 07:52] VITALS: BP 124/76; PULSE 69; O2SAT 95; BMI 31.0
== END 2023-04-05 08:34 | disposition home or self-care (01) ==
PROVIDERS: PCP Nurse Practitioner Family; Visit Provider Nurse Practitioner Family
DX: E11.8 Type 2 diabetes mellitus with unspecified complications (principal)
CPT/HCPCS: 83036; 99213

== ENCOUNTER → 2023-05-27 12:47 | Outpatient (REF) | payer MEDICARE, SELFPAY | LOC: HO.SL 12:47 | PROVIDERS: PCP Nurse Practitioner Family; Visit Provider Nurse Practitioner Family | DX: G47.33 Obstructive sleep apnea (adult) (pediatric) (principal); R40.0 Somnolence | CPT/HCPCS: 95806 ==

== ENCOUNTER → 2023-05-27 12:57 | Outpatient (BNV) | payer MEDICARE, SELFPAY | PROVIDERS: PCP Nurse Practitioner Family; Visit Provider Psychiatry & Neurology Neurology | DX: G47.33 Obstructive sleep apnea (adult) (pediatric) (principal) | CPT/HCPCS: 95806 ==

== ENCOUNTER 2023-07-01 15:29 | Outpatient (AMB) | payer MEDICARE, SELFPAY ==
[2023-07-01 15:47] VITALS: BP 114/60; PULSE 74; BMI 31.9
--- NOTE | 2023-07-01 15:47 | A.OFFVIS_ITS ---
Vital Signs 07/01/23 15:47 Height 5 ft 3 in Weight 180 lb 5.41 oz BMI 31.9 BP 114/60 Blood Pressure Location Rt brachial Position Sitting Pulse 74 Pulse Source Pulse Oximeter Intake Visit Reasons: 6 mth fu (rs) Fruit I Farmworker Required: No Allergies Penicillins [PENICILLINS] Allergy (Unknown, Verified 07/01/23 15:49) UNKNOWN canagliflozin [Invokana] Adverse Reaction (Unknown, Verified 07/01/23 15:49) unknown statins Allergy (Unknown, Uncoded 07/01/23 15:49) muscle aches Medication List - Last Reconciled 07/01/23 by ANDRADE Childress albuterol sulfate 90 mcg/actuation (Ventolin HFA) 1 inh inhalation QID PRN aspirin 81 mg PO DAILY benzonatate 200 mg PO TID 30 days cetirizine 10 mg PO DAILY PRN cyclobenzaprine 10 mg PO TID PRN diclofenac sodium 75 mg PO BID PRN 14 days ezetimibe 10 mg PO DAILY 90 days fluticasone propionate 50 mcg/actuation 1 spray intranasal DAILY gabapentin 200 mg (2 x 100 mg) PO BEDTIME 30 days hydrocortisone 2.5% 1 appl [place] BID PRN 14 days inhalational spacing device (BreatheRite MDI Spacer) As directed with metered dose inhaler device lancets (OneTouch Delica Lancets) As directed tree times a day losartan 50 mg PO DAILY 90 days magnesium oxide 400 mg PO DAILY 30 days meclizine 25 mg PO BID PRN ondansetron 4 mg PO Q6H PRN OneTouch Verio test strips (blood sugar diagnostic) 3 times a day NS pioglitazone 45 mg PO DAILY sitagliptin phos-metformin 50-1,000 mg ER 1 tab PO BID 90 days vitamin B complex 1 tab PO DAILY 30 days HPI HPI 6 mth fu (rs): Details: Kylah is a 72-year-old female with past medical history of hypertension, hyperlipidemia, diabetes who presents for reevaluation of scapular discomfort. Today she reports that she has been doing better since her last visit in December. She follows with pulmonology for her respiratory issues. She no longer has scapular area discomfort. She denies any chest discomfort at rest or with activity. No heart palpitations, lightheadedness, presyncope, syncope, PND, orthopnea or edema. 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 Takes all meds as directed. 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) Gender identity: Female Cognitive needs: No Hearing needs: No Vision needs: Yes Female Reproductive History Menstrual Age of Menarche: 17 Review of Systems Const All systems reviewed & are unremarkable except as noted in HPI and below ENT Denies dizziness Card Denies chest pain, Denies chest pain at rest, Denies chest pain with activity, Denies rapid heart rate, Denies pedal edema, Denies edema, Denies leg edema, Denies lightheadedness, Denies palpitations, Denies dyspnea, Denies dyspnea on exertion and Denies orthopnea Resp Denies cough, Denies dyspnea and Denies dyspnea on exertion GI Denies hematochezia and Denies change in stool character Musc Denies abnormal gait, Denies limited range of motion, Denies muscle cramps, Denies muscle weakness, Denies numbness, Denies radiating pain into limb, Denies stiffness and Denies tingling Neuro Denies abnormal gait, Denies dizziness, Denies numbness and Denies tingling Endo Denies palpitations Physical Exam Vital Signs: Last Vital Signs Pulse 74 07/01/23 15:47 BP 114/60 07/01/23 15:47 BMI result Body Mass Index 31.9 Const General: cooperative, healthy appearing, comfortable and no acute distress Orientation/consciousness: patient oriented x3 Neck Neck: Yes normal visual inspection and Yes no JVD Resp Effort & Inspection: normal respiratory effort Auscultation: clear to auscultation bilaterally, no crackles, no rales, no rhonchi and no wheezes Cardio Jugular venous distension: no JVD Rate: regular rate Rhythm: regular rhythm Heart sounds: S1 normal heart sound present, S2 normal heart sound present, no murmurs and no rubs Neuro General: patient oriented x3 Extrem General: Yes normal to inspection, No no pedal edema and No calf tenderness Psych Appearance: grossly normal Mental Status: mental status grossly normal Speech and movement: Normal speech and movement present Assessment & Plan Assessment & Plan (1) Precordial chest pain: Code(s): R07.2 - Precordial pain Category: Medical Plan: On last visit reported Atypical pain occurring in her back, approximally 2 in below the scapula on left. It had been occurring for 2 months, daily, not worse with physical activity. At that time it was felt to be atypical for angina and more likely chest wall/musculoskeletal in nature. ER evaluation for this symptom last December and troponins negative that day. EKG showed normal sinus rhythm, no acute ST or T-wave abnormalities, rate 75. Echocardiogram done 12/09/2022 showed EF 60-65%, mild LVH, normal RV. She does have cardiac risk factors however no further cardiac testing needed for this pain. Today she was reporting full resolution of the scapular area discomfort. Offered reassurance that this was noncardiac in nature. At this time she has no anginal sounding symptoms. Reviewed the Signs and symptoms of angina reviewed with her. Continue with cardiac risk factor modification. Cardiology follow-up as needed (2) SOB (shortness of breath): Code(s): R06.02 - Shortness of breath Category: Medical Plan: Follows with pulmonology (3) Essential hypertension: Code(s): I10 - Essential (primary) hypertension Category: Medical Plan: Well controlled at this time. No med changes made Plan Time spent on chart review, documentation, interview assessment Coding Level of Care Code Est Pt Level 3 (95487) Diagnoses Precordial chest pain R07.2 SOB (shortness of breath) R06.02 Essential hypertension I10 Time Spent (min) 24
== END 2023-07-01 16:23 | disposition home or self-care (01) ==
PROVIDERS: PCP Nurse Practitioner Family; Visit Provider Nurse Practitioner Family
DX: R07.2 Precordial pain (principal); R06.02 Shortness of breath; I10 Essential (primary) hypertension
CPT/HCPCS: 99213

== ENCOUNTER → 2023-07-01 15:29 | Outpatient (BNVA) | payer MEDICARE, SELFPAY | PROVIDERS: PCP Nurse Practitioner Family; Visit Provider Nurse Practitioner Family | DX: R07.2 Precordial pain (principal); R06.02 Shortness of breath; I10 Essential (primary) hypertension | CPT/HCPCS: 99212 ==

== ENCOUNTER 2023-07-08 09:33 | Outpatient (AMB) | payer MEDICARE, SELFPAY ==
--- NOTE | 2023-07-08 09:55 | A.OFFPC_ITS ---
Vital Signs 07/08/23 09:58 Weight 176 lb BP 110/74 Blood Pressure Location Rt brachial Position Sitting Pulse 72 Pulse Source Pulse Oximeter Pulse Oximetry (%) 98 Oxygen Delivery Method Room Air Intake Visit Reasons: 3 month fu Intake Note: Patient here for DM f/u. Allergies Penicillins [PENICILLINS] Allergy (Unknown, Verified 07/08/23 10:05) UNKNOWN canagliflozin [Invokana] Adverse Reaction (Unknown, Verified 07/08/23 10:05) unknown statins Allergy (Unknown, Uncoded 07/08/23 10:05) muscle aches Medication List - Last Reconciled 07/08/23 by Jacob Martinez, BALE OPENER-BC albuterol sulfate 90 mcg/actuation (Ventolin HFA) 1 inh inhalation QID PRN aspirin 81 mg PO DAILY cetirizine 10 mg PO DAILY PRN cyclobenzaprine 10 mg PO TID PRN diclofenac sodium 75 mg PO BID PRN 14 days ezetimibe 10 mg PO DAILY 90 days fluticasone propionate 50 mcg/actuation 1 spray intranasal DAILY gabapentin 200 mg (2 x 100 mg) PO BEDTIME 30 days hydrocortisone 2.5% 1 appl [place] BID PRN 14 days inhalational spacing device (BreatheRite MDI Spacer) As directed with metered dose inhaler device lancets (OneTouch Delica Lancets) As directed tree times a day losartan 50 mg PO DAILY 90 days magnesium oxide 400 mg PO DAILY 30 days meclizine 25 mg PO BID PRN ondansetron 4 mg PO Q6H PRN OneTouch Verio test strips (blood sugar diagnostic) 3 times a day NS pioglitazone 45 mg PO DAILY sitagliptin phos-metformin 50-1,000 mg ER 1 tab PO BID 90 days vitamin B complex 1 tab PO DAILY 30 days Tobacco use date assessed: 04/05/23 Dental Screening Dental Screen Date: 04/05/23 HPI 3 month fu HPI Details Pt is a diabetic, on an ARB. A1C in office today is 7.4. Due for microalbumin in the near future, will order. Denies polyuria, polydipsia, and neuropathy. Pt denies any signs and symptoms of hypoglycemia and does know how to correct it. Will start jardiance 10mg. Eye exam is up to date. refuses pneumo vaccine COUNTS INCLUDE 234 BEDS AT THE [facility] Medical History Elevated hemidiaphragm Immunization refused Diabetes type 2, controlled Overweight (BMI 25.0-29.9) Dyslipidemia Essential hypertension Type 2 diabetes mellitus with unspecified complications Surgical History Hx of tubal ligation History of appendectomy Family History Father Heart disease Mother Heart disease Sister Breast cancer Social History Housing: Other Alcohol intake: never Patient Tobacco Use Status: Never used Tobacco e-Cigarette/Vaping Use: Never Used Second Hand Smoke Exposure: No service: No 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 Remy Castanon, Tabby Scott, Robert Reynolds and colleagues, with an educational fe from [employer]. Review of Systems Const Reports as per HPI Physical exam (Primary Care) Vital Signs: Last Vital Signs Pulse 72 07/08/23 09:58 BP 110/74 07/08/23 09:58 Pulse Ox 98 07/08/23 09:58 Oxygen Delivery Method Room Air 07/08/23 09:58 Tobacco/Smoking Status: Tobacco use Status Tobacco use date assessed 04/05/23 07/08/23 09:56 Patient Tobacco Use Status Never used Tobacco 07/08/23 09:56 e-Cigarette/Vaping Use Never Used 07/08/23 09:56 Thrive Assessment: Date of Thrive Assessment Date Thrive assessed 04/05/23 07/08/23 09:56 Const General: cooperative Orientation/consciousness: patient oriented x3 Resp Effort & Inspection: normal respiratory effort Auscultation: clear to auscultation bilaterally Cardio Rate: regular rate Rhythm: regular rhythm Heart sounds: S1 normal heart sound present, S2 normal heart sound present and Murmur heart sound present systolic Neuro General: patient oriented x3 Extrem Other: bilat feet: + sensation with use of monofilament, feet intact Psych Appearance: grossly normal Mental Status: mental status grossly normal Speech and movement: Normal speech and movement present Affect: normal affect Attitude: cooperative Thought process: Normal thought process present Thought content: Normal thought content present Insight: Good insight present (Psych) Judgement: Good judgement present (Psych) Results AMB Hemoglobin A1c AMB Hemoglobin A1c 7.4 % Last Edit by KELLY Breen on 07/08/23 10 :21 Assessment and Plan Assessment & Plan (1) Diabetes: Code(s): E11.9 - Type 2 diabetes mellitus without complications Plan: Labs ordered Plan The patient agreed to the use of a biomedical field service engineer for this encounter. Scribed for OMAR Benton by Simran Carrillo biomedical field service engineer, on 07/08/2023 at 10:10 EST. Orders: Orders Complete Blood Count Auto Diff Today E11.9 - Type 2 diabetes mellitus without complications Comprehensive [place]. Panel Fast Today E11.9 - Type 2 diabetes mellitus without complications TSH reflex Free T4 Today E11.9 - Type 2 diabetes mellitus without complications UA CC w/rflx Micro + Cult Today E11.9 - Type 2 diabetes mellitus without complications Lipid Panel Today E11.9 - Type 2 diabetes mellitus without complications Microalbumin, Random (w Creat) Today E11.9 - Type 2 diabetes mellitus without complications AMB Hemoglobin A1c Today Z13.9 - Encounter for screening, unspecified Medications: New empagliflozin (Jardiance) 10 mg PO DAILY 90 tabs 0RF Refilled OneTouch Verio test strips (blood sugar diagnostic) 3 times a day 300 ea 3RF NS E11.9 - Type 2 diabetes mellitus without complications Coding Level of Care Code Est Pt Level 3 (23360) Diagnoses Diabetes E11.9
[2023-07-08 09:58] VITALS: BP 110/74; PULSE 72; O2SAT 98
== END 2023-07-08 10:26 | disposition home or self-care (01) ==
PROVIDERS: PCP Nurse Practitioner Family; Visit Provider Nurse Practitioner Family
DX: E11.9 Type 2 diabetes mellitus without complications (principal)
CPT/HCPCS: 83036; 99213

== ENCOUNTER 2023-07-08 10:27 | Outpatient (REF) | payer MEDICARE, SELFPAY ==
[2023-07-08 13:16] LABS: MANUAL DIFF FLAG NO
[2023-07-08 13:28] LABS: Basophils Percent Auto 0.5 % (0-2); Eosinophils Absolute Auto 0.1 X10*3/uL (0.0-0.4); Eosinophils Percent Auto 0.9 % (0-4); Hematocrit 41.5 % (37.0-47.0); Hemoglobin 13.2 g/dl (12.0-16.0); Imm Gran Abs Auto 0.02 X10*3/uL (0.00-0.03); Imm Gran Pct Auto 0.4 % (0.0-0.4); Lymphocytes Absolute Auto 1.5 X10*3/uL (1.2-4.9); Mean Corpuscular HGB Conc 31.8 g/dl (31.0-35.0); Mean Corpuscular Hemoglobin 29.1 pg (27.0-33.0); Mean Corpuscular Volume 91.6 fL (80.0-98.0); Mean Platelet Volume 10.3 fL (9.4-12.3); Monocytes Absolute Auto 0.4 X10*3/uL (0.1-1.2); Neutrophils Absolute Auto 3.7 x10*3/uL (2.0-8.3); Neutrophils Percent Auto 65.2 % (45-73); Platelet Count 263 X10*3/uL (160-400); Red Blood Count 4.53 X10*6/uL (4.20-5.50); Red Cell Distribution Width 14.2 % (11.0-16.0); White Blood Count 5.7 X10*3/uL (4.8-10.8)
[2023-07-08 13:31] LABS: Appearance Urine Clear; Color Urine Yellow; Glucose Urine UA Negative (Negative); Leukocyte Esterase Urine Negative (Negative); Nitrite Urine Negative (Negative); PH 7.5 (5.0-9.0); Specific Gravity - Urine 1.015 (1.005-1.025); Urine Blood Negative (Negative); Urine Ketones Negative (Negative); Urine Protein Negative (Neg-Trace)
[2023-07-08 13:59] LABS: Alanine Aminotransferase 20 U/L (0-31); Albumin Level 4.1 g/dL (3.5-5.0); Alkaline Phosphatase 65 U/L (39-117); Anion Gap 14 (12-20); Aspartate Amino Transferase 27 U/L (5-31); Bilirubin Total 0.3 mg/dL (0.0-1.0); Blood Urea Nitrogen 13 mg/dL (9-16); Calcium 10.3 mg/dL (8.4-10.2); Carbon Dioxide 28 mmol/L (22-29); Chloride 105 mmol/L (96-108); Cholesterol 169 mg/dL (<200); Estimated Glomerular Filt Rate > 60; Glucose Fasting 127 mg/dL (60-99); HDL Cholesterol 76 mg/dL (>40); LDL Cholesterol Calculated 79 mg/dL (<100); Potassium 4.5 mmol/L (3.3-5.1); Sodium 142 mmol/L (135-145); Total Protein 7.3 g/dL (6.5-8.0); Triglycerides 70 mg/dL (<150)
[2023-07-08 14:02] LABS: TSH reflex Free T4 0.53 uIU/mL (0.32-4.0)
[2023-07-08 14:24] LABS: Creatinine Urine 94.35 mg/dL; Microalbumin Urine < 5.0 mg/L
== END 2023-07-08 10:28 | disposition home or self-care (01) ==
LOC: HO.HMGCLDS 10:27
PROVIDERS: PCP Nurse Practitioner Family; Visit Provider Nurse Practitioner Family
DX: E11.8 Type 2 diabetes mellitus with unspecified complications (principal); Z13.9 Encounter for screening, unspecified
CPT/HCPCS: 36415; 80053; 80061; 81003; 82043; 82570; 84443; 85025

== ENCOUNTER 2023-07-14 08:15 | Outpatient (AMB) | payer MEDICARE, SELFPAY ==
--- OUTSIDE RECORDS SUMMARY | 2023-07-14 08:17 | XMS_ITS | Continuity of Care Document ---
Author Organization [facility] ter Address [address] [place] [id number]- Care Team Providers Care Translator Name Role Phone Juan MORALES, Jacob Freed Primary Care Physician Encounter [facility] Date(s): 03/30/23 - 05/13/[address] [address] Attending Physician: Annika Mccann Admitting Physician: Annika Mccann Referring Physician: Annika Mccann Allergies, Adverse Reactions, Alerts Substance Reaction Severity Status lisinopril cough Lisinopril Lisinopril Active penicillins rash Active Immunizations Given and Recorded Vaccine Date Status Refusal Reason influenza virus vaccine, inactivated 1 12/03/08 Gi keya Influenza Virus Vaccine (oldterm) 12/07/07 Given Influenza Virus Vaccine (oldterm) 2 12/20/06 Given Diphth-Tetanus Toxoids Adsorbed(oldterm) 09/02/06 Given Pneumococcal Poly (PPV23) (oldterm) 03/15/06 Given 1Admin Note: declined 2Admin Note: Left deltoid Medications aspirin 81 mg oral enteric coated capsule 81, mg, 1, capsule, By Mouth, Daily, 0, 0, 05/10/06 11:40:44, Print TYLOR Number, [id number], Constant Indicator Start Date: 05/10/06 Status: Ordered Freestyle Test Strips See Instructions, # 100 application, Refills 11, Tot. Refills 11, Maintenance, 3X DAILY, 08/20/11 18:08:13 Start Date: 08/20/11 Status: Ordered glyburide 5 mg oral tablet 2 tablet = 10 mg, By Mouth, 2 times a day, # 120 tablet, 6 Refills, Maintenance Start Date: 11/20/11 Stop Date: 06/17/12 Status: Ordered losartan 50 mg oral tablet 1 tablet = 50 mg, By Mouth, Daily, # 30 tablet, 6 Refills, Maintenance, Tablet Start Date: 05/11/11 Status: Ordered metformin 1000 mg oral tablet 1 tablet = 1,000 mg, By Mouth, 2 times a day, # 60 tablet, 6 Refills, Maintenance Start Date: 05/11/11 Stop Date: 12/07/11 Status: Ordered Problem List Condition Confirmation Course Effective Dates Status Health St atus Informant Adrenal mass, left Confirmed Active Hypertension Confirmed Active NIDDM Confirmed Active Obesity due to excess calories Confirmed Active Sleep apnea Confirmed Active Patient Care team information Care Team Personnel Name: Juan MORALES , Jacob Freed Position: Reference Physician Member Role: PCP Address: Address: [address] [place] [id number]- Care Team Related Persons Name: KARINA DEWEY Address: home [address] [place] [address]
--- OUTSIDE RECORDS SUMMARY | 2023-07-14 08:17 | XMS_ITS | Continuity of Care Document ---
Author Organization [facility] ter Address [address] [place] [id number]- Care Team Providers Care Crusher Screen Repairer Name Role Phone Juan MORALES, Jacob Freed Primary Care Physician [phone] Encounter [facility] Date(s): 04/02/23 - 04/02/[address] [address] Attending Physician: Annika Mccann Allergies, Adverse Reactions, Alerts [...] 0, 0, 05/10/06 11:40:44, Print TYLOR Number, [id number], Constant Indicator Start Date: 05/10/06 Status: Ordered [...] Reference Physician Member Role: PCP Address: Address: [address] [place] [address]- Care Team Related Persons Name: KARINA DEWEY Address: home [address] [place] [id number]
[2023-07-14 09:06] VITALS: BP 110/66; PULSE 89; TEMP 36.4; O2SAT 97; BMI 31.4
--- NOTE | 2023-07-14 09:06 | MHC.OFFWIV ---
Intake Vital Signs 07/14/23 09:06 Height 5 ft 3 in Weight 177 lb BMI 31.4 BP 110/66 Blood Pressure Location Lt brachial Position Sitting Pulse 89 Pulse Source Pulse Oximeter Temp 97.5 F Temp Source Temporal Artery Scan Pulse Oximetry (%) 97 Oxygen Delivery Method Room Air Intake Visit Reasons: EST/dizziness/nausea(lobby) Intake Note: pt is here today for dizziness nausea started today Patient Tobacco Use Status: Never used Tobacco Allergies Penicillins [PENICILLINS] Allergy (Unknown, Verified 07/14/23 09:19) UNKNOWN canagliflozin [Invokana] Adverse Reaction (Unknown, Verified 07/14/23 09:19) unknown statins Allergy (Unknown, Uncoded 07/08/23 10:05) muscle aches Do you need a note to return to daycare/school/sports/work: No HPI EST/dizziness/nausea(lobby) HPI Details This is a 73-year-old female patient who presents today with a 1 day history intermittent nausea and dizziness. States she has also had body aches for the last several days. States that she was exposed to her niece who was positive for COVID last week. Denies any fever, chills, shortness of breath. Denies dizziness at this time - states it was most prominenet when getting out of bed this morning. Reports some nasal congestion which she attributes to seasonal allergies. Denies any vomiting or GI symptoms. States she is eating and drinking well. 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) Gender identity: Female Cognitive needs: No Hearing needs: No Vision needs: Yes Female Reproductive History Menstrual Age of Menarche: 17 Review of Systems Const All systems reviewed & are unremarkable except as noted in HPI and below Physical Exam Vital Signs: Last Vital Signs Temp 97.5 F 07/14/23 09:06 Pulse 89 07/14/23 09:06 BP 110/66 07/14/23 09:06 Pulse Ox 97 07/14/23 09:06 Oxygen Delivery Method Room Air 07/14/23 09:06 BMI result Body Mass Index 31.4 Const General: cooperative, healthy appearing and no acute distress HEENT Head: Yes normal to inspection Ears: hearing grossly normal bilaterally, external ears normal and TM's normal bilaterally General nose exam: Nasal discharge present mucoid Face and sinus: Yes normal facial exam Throat: Yes posterior oropharynx normal Neck Neck: Yes no lymphadenopathy Resp Effort & Inspection: normal respiratory effort Auscultation: clear to auscultation bilaterally Cardio Rate: regular rate Rhythm: regular rhythm Heart sounds: S1 normal heart sound present and S2 normal heart sound present Skin General skin exam: no rashes or lesions noted Extrem General: Yes capillary refill normal and Yes no clubbing, cyanosis or edema Assessment & Plan Assessment & Plan (1) Body aches: Code(s): R52 - Pain, unspecified Plan: COVID/flu/RSV swab was obtained, as patient was recently exposed to COVID, and now is symptomatic with intermittent dizziness, nausea, and generalized body aches. Will report results to patient when these are available. Patient denies any need for medication for her nausea. We discussed conservative measures at this time, including adequate hydration, healthy food/vitamin C intake, rest, Tylenol/Motrin as needed for body aches. Work note was provided for her. If she does not improve with time and conservative measures, or if symptoms worsen/new symptoms develop, she should return to the clinic for further evaluation. She verbalizes understanding and agrees to plan. (2) Seasonal allergic rhinitis: Code(s): J30.2 - Other seasonal allergic rhinitis Qualifiers: Allergic rhinitis trigger: unspecified Qualified Code(s): J30.2 - Other seasonal allergic rhinitis Plan: Will refill flonase as this has helped her previously. We reviewed use of this. Orders: Orders SARS-CoV2/FLU/RSV Today R52 - Pain, unspecified Medications: Refilled fluticasone propionate 50 mcg/actuation 1 spray intranasal DAILY 16 grams 1RF Z91.09 - Other allergy status, other than to drugs and biological substances Coding Level of Care Code Est Pt Level 4 (65899) Diagnoses Body aches R52 Seasonal allergic rhinitis, unspecified trigger J30.2 Allergic rhinitis trigger: unspecified
== END 2023-07-14 09:56 | disposition home or self-care (01) ==
PROVIDERS: PCP Nurse Practitioner Family; Visit Provider Nurse Practitioner Family
DX: R52 Pain, unspecified (principal); J30.2 Other seasonal allergic rhinitis
CPT/HCPCS: 99214

== ENCOUNTER 2023-07-14 09:40 | Outpatient (REF) | payer MEDICARE, SELFPAY ==
[2023-07-14 11:20] LABS: Influenza A PCR NEGATIVE (Negative); Influenza B PCR NEGATIVE (Negative); Resp Syncy Virus RNA Qual PCR NEGATIVE (Negative); SARS COV2 PCR INHOUSE NEGATIVE (Negative)
== END 2023-07-14 09:41 | disposition home or self-care (01) ==
LOC: HO.LNP 09:40
PROVIDERS: Visit Provider Nurse Practitioner Family
DX: R52 Pain, unspecified (principal)
CPT/HCPCS: 0241U

== ENCOUNTER 2023-08-23 12:33 | Outpatient (AMB) | payer MEDICARE, SELFPAY ==
--- NOTE | 2023-08-23 12:46 | A.OFFVIS_ITS ---
Vital Signs 08/23/23 12:47 Height 5 ft 3 in Weight 177 lb BMI 31.4 BP 112/60 Blood Pressure Location Rt brachial Position Sitting Respiration 16 Pulse 78 Pulse Source Pulse Oximeter Pulse Oximetry (%) 96 Oxygen Delivery Method Room Air Intake Visit Reasons: Follow up Intake Note: Pt presents to the office for a 9 month follow up for DARRELL. Sagger Preparer Required: No Allergies Penicillins [PENICILLINS] Allergy (Unknown, Verified 08/23/23 12:46) UNKNOWN canagliflozin [Invokana] Adverse Reaction (Unknown, Verified 08/23/23 12:46) unknown statins Allergy (Unknown, Uncoded 08/23/23 12:46) muscle aches HPI Comments Details: 73y/o female comes for follow up. Sleep study was done on 05/2023 Results- AHI 9 O2 elizabet 74% She is using his CPAP regularly . [id number] Compliance report- 100% usage hrs-7 AHI-2 Sleeps better with CPAP and daytime functioning has improved. 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) Gender identity: Female Cognitive needs: No Hearing needs: No Vision needs: Yes Female Reproductive History Menstrual Age of Menarche: 17 Physical Exam Vital Signs: Last Vital Signs Pulse 78 08/23/23 12:47 Resp 16 08/23/23 12:47 BP 112/60 08/23/23 12:47 Pulse Ox 96 08/23/23 12:47 Oxygen Delivery Method Room Air 08/23/23 12:47 BMI result Body Mass Index 31.4 Const General: cooperative Nutritional Appearance: obese Neck Neck: Yes full ROM and Yes supple Resp Effort & Inspection: normal respiratory effort and able to speak in complete sentences Psych Appearance: grossly normal Mental Status: mental status grossly normal Speech and movement: Normal speech and movement present Affect: normal affect Attitude: cooperative Assessment & Plan Assessment & Plan (1) DARRELL (obstructive sleep apnea): Code(s): G47.33 - Obstructive sleep apnea (adult) (pediatric) Category: Medical Plan Change pressure settings to AUtoPAP 5-15 Change mask to a full face mask Compliance stressed. Coding Level of Care Code Est Pt Level 4 (24644) Diagnoses DARRELL (obstructive sleep apnea) G47.33
[2023-08-23 12:47] VITALS: BP 112/60; PULSE 78; RESP 16; O2SAT 96; BMI 31.4
== END 2023-08-23 13:05 | disposition home or self-care (01) ==
PROVIDERS: PCP Nurse Practitioner Family; Visit Provider Psychiatry & Neurology Neurology
DX: G47.33 Obstructive sleep apnea (adult) (pediatric) (principal)
CPT/HCPCS: 99214

== ENCOUNTER → 2023-08-23 12:33 | Outpatient (BNVA) | payer MEDICARE, SELFPAY | PROVIDERS: PCP Nurse Practitioner Family; Visit Provider Psychiatry & Neurology Neurology | DX: G47.33 Obstructive sleep apnea (adult) (pediatric) (principal); Z99.89 Dependence on other enabling machines and devices | CPT/HCPCS: 99212 ==

== ENCOUNTER 2023-09-07 09:41 | Outpatient (AMB) | payer MEDICARE, SELFPAY ==
--- NOTE | 2023-09-07 09:51 | MHC.OFFWIV ---
Intake Vital Signs 09/07/23 09:57 Height 5 ft 3 in Weight 177 lb BMI 31.4 BP 118/70 Blood Pressure Location Rt brachial Position Sitting Pulse 78 Pulse Source Pulse Oximeter Temp 98.0 F Temp Source Oral Pulse Oximetry (%) 97 Intake Visit Reasons: EP Pos Covid Sat. labored breathing [id number] Intake Note: pt is here for covid positive, labored breathing and chest tightness Patient Tobacco Use Status: Never used Tobacco Allergies Penicillins [PENICILLINS] Allergy (Unknown, Verified 09/07/23 09:57) UNKNOWN canagliflozin [Invokana] Adverse Reaction (Unknown, Verified 09/07/23 09:57) unknown statins Allergy (Unknown, Uncoded 08/23/23 12:46) muscle aches Do you need a note to return to daycare/school/sports/work: No HPI HPI Comments History of Present Illness Details Patient is a 73-year-old female complaining of chest tightness and labored breathing times 3 days. She states she had a cough with congestion and was unable to get any sputum up over the weekend. She tested herself for COVID on Wednesday at home and was positive. She called her primary care doctor's office and they prescribed her Paxlovid which she has been taking each day as directed. She states she is not feeling any better. She denies any fevers, headaches, fatigue, chest pain. She denies a history of asthma or COPD and has never used an inhaler and she has never smoked. She has been taking Tylenol as well as the Paxlovid with minimal improvement in her symptoms. [facility] Medical History Elevated hemidiaphragm Immunization refused Diabetes type 2, controlled Overweight (BMI 25.0-29.9) Dyslipidemia Essential hypertension Type 2 diabetes mellitus with unspecified complications Surgical History Hx of tubal ligation History of appendectomy Family History Father Heart disease Mother Heart disease Sister Breast cancer Social History Housing: Other Alcohol intake: never Patient Tobacco Use Status: Never used Tobacco e-Cigarette/Vaping Use: Never Used Second Hand Smoke Exposure: No service: No Current occupational status: employed Gender identity: Female Cognitive needs: No Hearing needs: No Vision needs: Yes Female Reproductive History Menstrual Age of Menarche: 17 Review of Systems Const All systems reviewed & are unremarkable except as noted in HPI and below Physical Exam Vital Signs: Last Vital Signs Temp 98.0 F 09/07/23 09:57 Pulse 78 09/07/23 09:57 BP 118/70 09/07/23 09:57 Pulse Ox 97 09/07/23 09:57 BMI result Body Mass Index 31.4 Const General: cooperative, healthy appearing, comfortable and no acute distress Orientation/consciousness: patient oriented x3 Limitations: no limitations HEENT Head: Yes normal to inspection Ears: hearing grossly normal bilaterally, external ears normal and TM's normal bilaterally General nose exam: Normal external nose present, Normal nares present and No nasal discharge present Face and sinus: Yes normal facial exam and Yes sinuses nontender Mouth: Normal oral and palatal mucosa present and moist mucous membranes Throat: Yes tonsils normal, Yes uvula midline and Yes posterior oropharynx abnormal (Erythema) Eyes General: appearance normal, both eyes and all related structures Neck Neck: Yes normal visual inspection Resp Effort & Inspection: normal respiratory effort, able to speak in complete sentences, no respiratory distress, not tachypneic, no tripod positioning and no use of accessory muscles Auscultation: clear to auscultation bilaterally Cardio Rate: regular rate Rhythm: regular rhythm Heart sounds: normal S1 and S2 Skin General skin exam: no rashes or lesions noted Neuro General: patient oriented x3 Extrem General: Yes normal to inspection and Yes no clubbing, cyanosis or edema Assessment & Plan Assessment & Plan (1) COVID-19: Code(s): U07.1 - COVID-19 Plan: Patient is well-appearing, vital signs are stable, lungs clear. We will get chest x-ray to rule out superimposed pneumonia. Otherwise, instructed patient to treat herself with [id number] medications for her symptoms as well as continue taking the Paxlovid. Any shortness of breath, she should go to the emergency department. (2) Chest tightness: Code(s): R07.89 - Other chest pain Plan: See above Plan see above Orders: Orders XR chest 2V Today R05.9 - Cough, unspecified Coding Level of Care Code Est Pt Level 3 (56849) Diagnoses COVID-19 U07.1 Chest tightness R07.89
[2023-09-07 09:57] VITALS: BP 118/70; PULSE 78; TEMP 36.7; O2SAT 97; BMI 31.4
== END 2023-09-07 10:56 | disposition home or self-care (01) ==
PROVIDERS: PCP Nurse Practitioner Family; Visit Provider Physician Assistant
DX: U07.1 COVID-19 (principal); R07.89 Other chest pain
CPT/HCPCS: 99213

== ENCOUNTER 2023-09-07 10:18 | Outpatient (REF) | payer MEDICARE, SELFPAY ==
--- NOTE | ~2023-09-07 | XR_ITS ---
EXAMINATION: XR CHEST CLINICAL INFORMATION: Cough COMPARISON: Chest radiograph from 12/25/2022, CT chest from 02/19/2019 TECHNIQUE: 2 views of the chest FINDINGS: Stable slight elevation right hemidiaphragm. No pneumothorax. Trachea is midline. Cardiac mediastinal silhouette is not enlarged. No large pleural effusion. Degenerative changes of the thoracolumbar spine. Soft tissues are unremarkable. XR/XR chest 2V IMPRESSION: No acute cardiopulmonary process.
== END 2023-09-07 10:19 | disposition home or self-care (01) ==
LOC: HO.HMGCX 10:18
PROVIDERS: PCP Nurse Practitioner Family; Visit Provider Physician Assistant
DX: R05.9 Cough, unspecified (principal)
CPT/HCPCS: 71046

== ENCOUNTER 2023-11-10 12:15 | Outpatient (AMB) | payer MEDICARE, SELFPAY ==
[2023-11-10 12:18] VITALS: BP 128/68; PULSE 75; O2SAT 96; BMI 29.9
--- NOTE | 2023-11-10 12:18 | A.OFFPC_ITS ---
Vital Signs 11/10/23 12:18 Height 5 ft 3 in Weight 169 lb BMI 29.9 BP 128/68 Blood Pressure Location Rt brachial Position Sitting Pulse 75 Pulse Source Pulse Oximeter Pulse Oximetry (%) 96 Oxygen Delivery Method Room Air Intake Visit Reasons: PE Intake Note: Pt is here today for PE. Allergies Penicillins [PENICILLINS] Allergy (Unknown, Verified 11/10/23 12:20) UNKNOWN canagliflozin [Invokana] Adverse Reaction (Unknown, Verified 11/10/23 12:20) unknown statins Allergy (Unknown, Uncoded 11/10/23 12:20) muscle aches Tobacco use date assessed: 11/10/23 Fall risk assessment: No Falls in past year Last assessed Fall Risk: 11/10/23 Dental Screening Dental Screen Date: 11/10/23 Did you have a dental visit in the last 12 months?: No Did you have a dental problem in the last 6 months where you did not have access to dental care?: Yes Was dental information given to patient?: Yes HPI PE HPI Details Here for PE. Pt is a diabetic. Pt denies any polyuria, polydipsia, but does have neuropathy. Pt is currently on gabapentin. Pt reports having a mammo scheduled for this fall. Bone density is up to date. I will get a A1c with her blood work. Microalbumin is up to date. Pt understands the s/s of h ypoglycemia and how to correct it. 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 Cologuard is up to date. [facility] Medical History Elevated hemidiaphragm Immunization refused Diabetes type 2, controlled Overweight (BMI 25.0-29.9) Dyslipidemia Essential hypertension Type 2 diabetes mellitus with unspecified complications Surgical History Hx of tubal ligation History of appendectomy Family History Father Heart disease Mother Heart disease Sister Breast cancer Social History Housing: Other Alcohol intake: never Patient Tobacco Use Status: Never used Tobacco e-Cigarette/Vaping Use: Never Used Second Hand Smoke Exposure: No service: No Current occupational status: employed Gender identity: Female Cognitive needs: No Hearing needs: No Vision needs: Yes Female Reproductive History Menstrual Age of Menarche: 17 Questionnaire PHQ-9 Over the last 2 weeks, how often have you been bothered by any of the following problems? 1. Little interest or pleasure in doing things: not at all 2. Feeling down, depressed, or hopeless: several days 3. Trouble falling or staying asleep, or sleeping too much: not at all 4. Feeling tired or having little energy: not at all 5. Poor appetite or overeating: not at all 6. Feeling bad about yourself - or that you are a failure or have let yourself or your family down: not at all 7. Trouble concentrating on things, such as reading the newspaper or watching television: not at all 8. Moving or speaking so slowly that other people could have noticed. Or the opposite - being so fidgety or restless that you have been moving around a lot more than usual: not at all 9. Thoughts that you would be better off or of hurting yourself in some way: not at all Total score: 1 Depression Screening Interpretation: Negative Depression Screening Done: Yes 80655 - PHQ-9 Billing: Yes Source: Developed by Drs. Remy Castanon, Tabby Scott, Robert Reynolds and colleagues, with an educational fe from [employer]. Thrive Questionnaire Date Thrive assessed: 09/22/23 I am a: Patient What is your living situation today?: I choose not to answer this question Within the past 12 months, did the food you bought not last and you didn't have the money to get more?: I choose not to answer this question Within the past 12 months, did you worry whether your food would run out before you got money to buy more?: I choose not to answer this question Do you have trouble paying for medicines?: No Do you have trouble getting transportation to medical appointments?: No Do you have trouble paying your heating and electricity bill?: Yes Do you have trouble taking care of your child, family member or friend?: No Do you have trouble with day-to-day activities such as bathing, preparing meals, shopping, managing finances, etc.?: No Are you currently unemployed and looking for a job?: No Are you interested in more education?: No Currently or been in a relationship where the following occur: I choose not to answer THRIVE Score: 1 AUDIT C Alcohol Use Questionnaire (AUDIT-C) 1. How often do you have a drink containing alcohol?: Never 3. How often do you have six or more drinks on one occasion?: Never Total Score: 0 SHAWNEE-7 AMB Questionnaire SHAWNEE-7 Date SHAWNEE - 7 assessed: 11/10/23 Source: Developed by Drs. Remy Castanon, Tabby Scott, Robert Reynolds and colleagues, with an educational fe from [employer]. Review of Systems Const Denies chills and Denies fever(s) Eyes Denies blurry vision ENT Denies vertigo, Denies dizziness and Denies sore throat Card Denies chest pain at rest, Denies chest pain with activity, Denies diaphoresis, Denies dyspnea and Denies dyspnea on exertion Resp Denies cough, Denies dyspnea, Denies dyspnea on exertion and Denies wheezing GI Denies abdominal pain, Denies melena, Denies hematochezia, Denies constipation, Denies diarrhea and Denies loose stools Denies hematuria Musc Denies numbness and Denies tingling Skin/Breast Denies lesions Neuro Denies vertigo, Denies dizziness, Denies numbness and Denies tingling Psych Denies anxiety, Denies depression, Denies homicidal ideation, Denies suicidal ideation and Denies other (substance abuse) Aller/Immun Denies wheezing Physical exam (Primary Care) Vital Signs: Last Vital Signs Pulse 75 11/10/23 12:18 BP 128/68 11/10/23 12:18 Pulse Ox 96 11/10/23 12:18 Oxygen Delivery Method Room Air 11/10/23 12:18 BMI result Body Mass Index 29.9 Tobacco/Smoking Status: Tobacco use Status Tobacco use date assessed 11/10/23 11/10/23 12:26 Patient Tobacco Use Status Never used Tobacco 11/10/23 12:26 e-Cigarette/Vaping Use Never Used 11/10/23 12:26 PHQ-9: PHQ-9 Score PHQ-9: Total score 1 11/10/23 12:57 Depression Screening Interpretation: Negative Thrive Assessment: Date of Thrive Assessment Date Thrive assessed 09/22/23 11/10/23 12:26 Currently or been in a relationship where the following occur: I choose not to answer Const General: cooperative Nutritional Appearance: well nourished Orientation/consciousness: patient oriented x3 HENMT Other: mod cerumen noted to right ear canal Head: Yes normal to inspection, Yes normocephalic and Yes atraumatic Eyes General: appearance normal, both eyes and all related structures Alignment and Position: alignment normal and position normal Neck Neck: Yes normal visual inspection, Yes no lymphadenopathy and Yes supple Resp Effort & Inspection: normal respiratory effort Auscultation: clear to auscultation bilaterally Cardio Rate: regular rate Rhythm: regular rhythm Heart sounds: S1 normal heart sound present and S2 normal heart sound present GI Palpation (GI): Soft to palpation and nontender Auscultation: normal bowel sounds Skin Rashes: no rashes Neuro General: patient oriented x3, moves all extremities, no focal motor deficits and deep tendon reflexes 2+ bilaterally Romberg Test: Negative Extrem Other: minimal to no sensation with use of monofilament to Right plantar foot. Left foot + sensation with use of monofilament. bilat 5th toes, lateral/doral with small scabbed lesions. no signs of infection or surrounding infection Right lower extremity: no edema Left lower extremity: no edema Psych Affect: normal affect Attitude: cooperative Thought process: Normal thought process present Assessment and Plan Assessment & Plan (1) Diabetes type 2, controlled: Code(s): E11.9 - Type 2 diabetes mellitus without complications Qualifiers: Diabetes mellitus complication status: without complication Diabetes mellitus nursing home insulin use: without intermodal customer service use Qualified Code(s): E11.9 - Type 2 diabetes mellitus without complications (2) Excessive cerumen in right ear canal: Code(s): H61.21 - Impacted cerumen, right ear Plan: pt will use a ear wax removal kit OTC. Orders: Orders TSH reflex Free T4 Today E11.9 - Type 2 diabetes mellitus without complications UA CC w/rflx Micro + Cult Today E11.9 - Type 2 diabetes mellitus without complications Hemoglobin A1c Today E11.9 - Type 2 diabetes mellitus without complications Complete Blood Count Auto Diff Today E11.9 - Type 2 diabetes mellitus without complications Comprehensive [place]. Panel Fast Today E11.9 - Type 2 diabetes mellitus without complications Lipid Panel Today E11.9 - Type 2 diabetes mellitus without complications Coding Level of Care Code Est Pt Prev Care >65y(82187) Diagnoses Controlled type 2 diabetes mellitus without complication, without long-term cu rrent use of insulin E11.9 Diabetes mellitus complication status: without complication Diabetes mellitus nursing home insulin use: without nursing home use Excessive cerumen in right ear canal H61.21
== END 2023-11-10 13:19 | disposition home or self-care (01) ==
PROVIDERS: PCP Nurse Practitioner Family; Visit Provider Nurse Practitioner Family
DX: Z00.00 Encounter for general adult medical examination without abnormal findings (principal); E11.9 Type 2 diabetes mellitus without complications; H61.21 Impacted cerumen, right ear

== ENCOUNTER → 2023-11-10 12:15 | Outpatient (BNVA) | payer MEDICARE, SELFPAY | PROVIDERS: PCP Nurse Practitioner Family; Visit Provider Nurse Practitioner Family | DX: Z00.01 Encounter for general adult medical examination with abnormal findings (principal); E11.9 Type 2 diabetes mellitus without complications; H61.21 Impacted cerumen, right ear | CPT/HCPCS: 96127; 99397 ==

== ENCOUNTER 2023-11-10 13:20 | Outpatient (REF) | payer MEDICARE, SELFPAY ==
[2023-11-10 16:20] LABS: MANUAL DIFF FLAG NO
[2023-11-10 16:29] LABS: Basophils Absolute Auto 0.1 X10*3/uL (0.0-0.2); Basophils Percent Auto 0.9 % (0-2); Eosinophils Percent Auto 0.6 % (0-4); Hematocrit 43.5 % (37.0-47.0); Imm Gran Abs Auto 0.03 X10*3/uL (0.00-0.03); Imm Gran Pct Auto 0.5 % (0.0-0.4); Lymphocytes Absolute Auto 1.5 X10*3/uL (1.2-4.9); Lymphocytes Percent Auto 22.5 % (20-40); Mean Corpuscular HGB Conc 32.2 g/dl (31.0-35.0); Mean Corpuscular Hemoglobin 28.9 pg (27.0-33.0); Mean Corpuscular Volume 89.7 fL (80.0-98.0); Mean Platelet Volume 10.1 fL (9.4-12.3); Monocytes Absolute Auto 0.4 X10*3/uL (0.1-1.2); Neutrophils Absolute Auto 4.5 x10*3/uL (2.0-8.3); Neutrophils Percent Auto 69.5 % (45-73); Platelet Count 302 X10*3/uL (160-400); Red Blood Count 4.85 X10*6/uL (4.20-5.50); Red Cell Distribution Width 15.1 % (11.0-16.0); White Blood Count 6.5 X10*3/uL (4.8-10.8)
[2023-11-10 16:31] LABS: Appearance Urine Clear; Color Urine Yellow; Glucose Urine UA >=1000 mg/dL (Negative); Leukocyte Esterase Urine Negative (Negative); Nitrite Urine Negative (Negative); PH 5.5 (5.0-9.0); Specific Gravity - Urine 1.025 (1.005-1.025); UMIC TRIGGER UACC YES; Urine Blood Negative (Negative); Urine Ketones Negative (Negative); Urine Protein Negative (Neg-Trace)
[2023-11-10 16:43] LABS: Estimated Average Glucose 140 mg/dL; Hemoglobin A1c % 6.5 % (<6.0); Total Hemoglobin (HGBA1C) 3587.4422 umol/L
[2023-11-10 16:50] LABS: Alanine Aminotransferase 17 U/L (0-31); Albumin Level 4.4 g/dL (3.5-5.0); Alkaline Phosphatase 73 U/L (39-117); Anion Gap 13 (12-20); Aspartate Amino Transferase 24 U/L (5-31); Bilirubin Total 0.3 mg/dL (0.0-1.0); Blood Urea Nitrogen 15 mg/dL (9-16); Calcium 10.5 mg/dL (8.4-10.2); Carbon Dioxide 28 mmol/L (22-29); Chloride 105 mmol/L (96-108); Cholesterol 177 mg/dL (<200); Estimated Glomerular Filt Rate 50; Glucose Fasting 117 mg/dL (60-99); HDL Cholesterol 78 mg/dL (>40); LDL Cholesterol Calculated 88 mg/dL (<100); Potassium 4.3 mmol/L (3.3-5.1); Sodium 142 mmol/L (135-145); Total Protein 7.8 g/dL (6.5-8.0); Triglycerides 58 mg/dL (<150)
[2023-11-10 17:06] LABS: TSH reflex Free T4 0.45 uIU/mL (0.32-4.0)
[2023-11-10 17:27] LABS: Bacteria Urine None Seen (None Seen); Hyaline Casts Urine 0-2 /LPF (0-2); RBC Urine 0-2 /HPF (0-2); Squamous Epithelial Cell Urine 0-2 /HPF (0-2); WBC Urine 0-5 /HPF (0-5)
== END 2023-11-10 13:21 | disposition home or self-care (01) ==
LOC: HO.HMGCLDS 13:20
PROVIDERS: PCP Nurse Practitioner Family; Visit Provider Nurse Practitioner Family
DX: E11.9 Type 2 diabetes mellitus without complications (principal)
CPT/HCPCS: 36415; 80053; 80061; 81001; 83036; 84443; 85025

== ENCOUNTER 2023-11-17 13:44 | Outpatient (REF) | payer MEDICARE, SELFPAY ==
--- NOTE | ~2023-11-17 | MM_ITS ---
EXAMINATION: MM SCREENING DIGITAL BREAST TOMOSYNTHESIS, BILATERAL CLINICAL INFORMATION: Screening. Asymptomatic. COMPARISON: Mammography: Comparison is made with available priors TECHNIQUE: Digital breast mammography with tomosynthesis is performed in both the craniocaudal and mediolateral oblique views along with computer-aided detection (CAD). FINDINGS: There are scattered areas of fibroglandular density (ACR BI-RADS breast composition Category b). There are no significant masses, abnormal calcifications, or other abnormalities. MM/MM tomosynthesis screening BI IMPRESSION: No mammographic evidence of malignancy. ASSESSMENT: BI-RADS BI-RADS 1 - Negative RECOMMENDATION: Routine annual mammography screening. 1 year F/U This examination should not preclude the clinical evaluation of a suspicious palpable abnormality. This patient's information was entered into a reminder system with a target due date for their next mammogram. Electronically signed by: Geni Bates DO 11/29/2023 01:51 PM EDT
== END 2023-11-17 13:45 | disposition home or self-care (01) ==
LOC: HO.MAMMO 13:44
PROVIDERS: PCP Nurse Practitioner Family; Visit Provider Nurse Practitioner Family
DX: Z12.31 Encounter for screening mammogram for malignant neoplasm of breast (principal)
CPT/HCPCS: 77063; 77067

== ENCOUNTER → 2023-11-17 14:00 | Outpatient (BNV) | payer MEDICARE, SELFPAY | PROVIDERS: PCP Nurse Practitioner Family; Visit Provider Internal Medicine | DX: Z12.31 Encounter for screening mammogram for malignant neoplasm of breast (principal) | CPT/HCPCS: 77063; 77067 ==

== ENCOUNTER 2023-12-23 09:14 | Outpatient (AMB) | payer MEDICARE, SELFPAY ==
[2023-12-23 09:35] VITALS: BP 126/80; PULSE 78; O2SAT 98
--- NOTE | 2023-12-23 09:35 | MHC.OFFWIV ---
Intake Vital Signs 12/23/23 09:35 Weight 172 lb BP 126/80 Blood Pressure Location Rt brachial Position Sitting Pulse 78 Pulse Source Pulse Oximeter Pulse Oximetry (%) 98 Oxygen Delivery Method Room Air Intake Visit Reasons: EP RT hand numb, sneezing. Intake Note: Patient here for body aches, sneezing, congestion and right hand numbness Patient Tobacco Use Status: Never used Tobacco Allergies Penicillins [PENICILLINS] Allergy (Unknown, Verified 12/23/23 09:35) UNKNOWN canagliflozin [Invokana] Adverse Reaction (Unknown, Verified 12/23/23 09:35) unknown statins Allergy (Unknown, Uncoded 12/23/23 09:35) muscle aches Do you need a note to return to daycare/school/sports/work: No HPI EP RT hand numb, sneezing. HPI Details This note is constructed using voice recognition software. While every effort has been made to ensure accuracy, technology lead errors may have been included. The patient is a 73 year old female who presents to the clinic today with cough, sneeze, and right hand numbness. She reports the right-hand numbness to be intermittent over the past several months, and she is treated for neuropathy in her feet, due to diabetes. She reports that since the onset of her respiratory symptoms that has gotten slightly worse, but attributes it to sleeping slightly more upright in her bed. She reports that over the weekend she had developed cough, sneeze, without fever, chills, or shortness of breath. She has not had any known sick contacts. She has not tried anything to help resolve the symptoms. She did take off of work yesterday and today, and would like to remain out of work until Wednesday. [facility] Medical History Elevated hemidiaphragm Immunization refused Diabetes type 2, controlled Overweight (BMI 25.0-29.9) Dyslipidemia Essential hypertension Type 2 diabetes mellitus with unspecified complications Surgical History Hx of tubal ligation History of appendectomy Family History Father Heart disease Mother Heart disease Sister Breast cancer Social History Housing: Other Alcohol intake: never Patient Tobacco Use Status: Never used Tobacco e-Cigarette/Vaping Use: Never Used Second Hand Smoke Exposure: No service: No Current occupational status: employed Gender identity: Female Cognitive needs: No Hearing needs: No Vision needs: Yes Female Reproductive History Menstrual Age of Menarche: 17 Review of Systems Const All systems reviewed & are unremarkable except as noted in HPI and below Physical Exam Vital Signs: Last Vital Signs Pulse 78 12/23/23 09:35 BP 126/80 12/23/23 09:35 Pulse Ox 98 12/23/23 09:35 Oxygen Delivery Method Room Air 12/23/23 09:35 Const General: cooperative, healthy appearing, comfortable and no acute distress Orientation/consciousness: patient oriented x3 Limitations: no limitations HEENT Head: Yes normal to inspection Ears: hearing grossly normal bilaterally, external ears normal and TM's normal bilaterally General nose exam: Normal external nose present, Normal nares present and No nasal discharge present Face and sinus: Yes normal facial exam and Yes sinuses nontender Mouth: Normal oral and palatal mucosa present and moist mucous membranes Throat: Yes tonsils normal, Yes uvula midline and Yes posterior oropharynx abnormal (Erythema) Eyes General: appearance normal, both eyes and all related structures Neck Neck: Yes normal visual inspection Resp Effort & Inspection: normal respiratory effort, able to speak in complete sentences, Actively coughing, no respiratory distress, not tachypneic, no tripod positioning and no use of accessory muscles Auscultation: clear to auscultation bilaterally Cardio Jugular venous distension: no JVD Rate: regular rate Rhythm: regular rhythm Heart sounds: S1 normal heart sound present, S2 normal heart sound present, no click, no gallops, no murmurs and no rubs Skin General skin exam: no rashes or lesions noted, elasticity normal and turgor normal Neuro General: patient oriented x3 Extrem General: Yes normal to inspection and Yes no clubbing, cyanosis or edema Assessment & Plan Assessment & Plan (1) Upper respiratory tract infection: Code(s): J06.9 - Acute upper respiratory infection, unspecified Qualifiers: URI type: unspecified URI Qualified Code(s): J06.9 - Acute upper respiratory infection, unspecified Plan: Viral swab obtained to rule out Covid based on symptoms. Advised mask wearing while symptomatic and quarantine per current CDC guidelines. Reviewed at home support methods including hydration, humidification, vix vapor rub, sinus rinse. Advised follow up with worsening symptoms such as dyspnea at rest, which would require emergent evaluation. Plan See above for full details and plan. Orders: Orders SARS-CoV2/FLU/RSV Today J06.9 - Acute upper respiratory infection, unspecified Coding Level of Care Code Est Pt Level 3 (80372) Diagnoses Upper respiratory tract infection, unspecified type J06.9 URI type: unspecified URI
== END 2023-12-23 10:15 | disposition home or self-care (01) ==
PROVIDERS: PCP Nurse Practitioner Family; Visit Provider Registered Nurse
DX: J06.9 Acute upper respiratory infection, unspecified (principal)

== ENCOUNTER 2023-12-23 09:14 | Outpatient (REF) | payer MEDICARE, SELFPAY ==
[2023-12-23 14:37] LABS: Influenza A PCR NEGATIVE (Negative); Influenza B PCR NEGATIVE (Negative); Resp Syncy Virus RNA Qual PCR NEGATIVE (Negative); SARS COV2 PCR INHOUSE NEGATIVE (Negative)
== END 2023-12-23 09:15 | disposition home or self-care (01) ==
LOC: HO.LNP 09:14
PROVIDERS: PCP Nurse Practitioner Family; Visit Provider Registered Nurse
DX: J06.9 Acute upper respiratory infection, unspecified (principal)
CPT/HCPCS: 0241U; 99212

== ENCOUNTER 2024-03-02 10:12 | Outpatient (AMB) | payer MEDICARE, SELFPAY ==
--- NOTE | 2024-03-02 10:22 | A.OFFVIS_ITS ---
Vital Signs 03/02/24 10:23 Height 5 ft 3 in Weight 171 lb 6 oz BMI 30.4 BP 120/70 Blood Pressure Location Lt brachial Position Sitting Intake Visit Reasons: 6 month F/U Intake Note: Patient presents for 6 mo fu for DARRELL. Pt has no concerns. Post Hole Digger Required: No Accompanied by: Self / Same As Patient Allergies Penicillins [PENICILLINS] Allergy (Unknown, Verified 03/02/24 10:23) UNKNOWN canagliflozin [Invokana] Adverse Reaction (Unknown, Verified 03/02/24 10:23) unknown statins Allergy (Unknown, Uncoded 12/23/23 09:35) muscle aches Medication List - Last Reconciled 03/02/24 by Demian Devi PA-C albuterol sulfate 90 mcg/actuation (Ventolin HFA) 1 inh inhalation QID PRN aspirin 81 mg PO DAILY cetirizine 10 mg PO DAILY PRN cyclobenzaprine 10 mg PO TID PRN diclofenac sodium 75 mg PO BID PRN 14 days empagliflozin (Jardiance) 5 mg (1/2 x 10 mg) PO DAILY ezetimibe 10 mg PO DAILY 90 days fluticasone propionate 50 mcg/actuation 1 spray intranasal DAILY hydrocortisone 2.5% 1 appl SC BID PRN 14 days inhalational spacing device (BreatheRite MDI Spacer) As directed with metered dose inhaler device lancets As directed tree times a day losartan 50 mg PO DAILY 90 days magnesium oxide 400 mg PO DAILY meclizine 25 mg PO BID PRN ondansetron 4 mg PO Q6H PRN OneTouch Verio test strips (blood sugar diagnostic) 3 times a day NS pioglitazone 45 mg PO DAILY sitagliptin phos-metformin 50-1,000 mg ER 1 tab PO BID 90 days vitamin B complex 1 tab PO DAILY 30 days HPI Comments Details: 73 y/o female comes for follow up for DARRELL Compliance. Sleep study was done on 05/2023- AHI 9 O2 elizabet 74%, Pressures are Auto-pap 5- [id number] 12/02/2023- 02/29/2024 She is compliant >4 hours 91% Total average usage 6hours and 38 min Leaks are 6.7/min to 106.1 min AHI is 5.7 She is sleeping better with her CPAP, cleans her nose pillow and tubing weekly, changes the filters and water as needed. Goes to bed at 11pm sleeps through the night, she gets up 3-4 times a night as she drinks 5 bottles of water. Urge incontinence, only when she puts the lópez into the front door, x1. Denies stress incontinence, and manages her fluid and caffeine intake. Denies constipation She says the water borjas her nose, nose pillows, she will adjust the temp on setting 1 or setting 2 and f/u with Regional as needed. The water evaporates or it stays in the chamber, but she fills it to the 1/[address] frank. The pressures are good for her, sometimes blows hard and she knows how to adjust it. Denies morning headaches denies. Diet is good, memory is good. 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 She does monitor her Blood sugars. She complaints about her right thumb, jumping has not had any injuries, but feels pain and sensitivity when bending it. [facility], [facility] Medical History Elevated hemidiaphragm Immunization refused Diabetes type 2, controlled Overweight (BMI 25.0-29.9) Dyslipidemia Essential hypertension Type 2 diabetes mellitus with unspecified complications Surgical History Hx of tubal ligation History of appendectomy Family History Father Heart disease Mother Heart disease Sister Breast cancer Social History Housing: Other Alcohol intake: never Patient Tobacco Use Status: Never used Tobacco e-Cigarette/Vaping Use: Never Used Second Hand Smoke Exposure: No service: No Current occupational status: employed Gender identity: Female Cognitive needs: No Hearing needs: No Vision needs: Yes Female Reproductive History Menstrual Age of Menarche: 17 Review of Systems Const All systems reviewed & are unremarkable except as noted in HPI and below ENT Reports Normal hearing present Neuro Reports Normal hearing present Physical Exam Vital Signs: Last Vital Signs BP 120/70 03/02/24 10:23 BMI result Body Mass Index 30.4 Const General: cooperative and comfortable Orientation/consciousness: patient oriented x3 Eyes Pupils: Equal, round and reactive pupils present Resp Effort & Inspection: normal respiratory effort and able to speak in complete sentences Neuro General: patient oriented x3 and moves all extremities Cranial nerves: Yes CN's II-XII intact bilaterally, Yes Facial sensation intact/muscles of mastication intact, Yes Equal, round and reactive pupils present, Yes Normal accommodation reflex present, Yes Bilaterally intact EOM present, Yes Nystagmus not present, Yes Normal facial strength present, Yes Midline tongue present, Yes Normal hearing present, Yes Ability to bilaterally rotate head present, Yes Ability to bilaterally elevate shoulders present and Yes Other cranial nerve findings present ([place] L[place]side) Cognition (Neuro): normal cognition Motor exam (neuro): 5/5 motor strength present throughout, Pronator motor function not present, no tremor noted and Normal motor muscle tone present throughout Deep tendon reflexes (DTR's): Right triceps reflex intensity grade: 2+, Left triceps reflex intensity grade: 2+, Rt Biceps (C5, C6): 2+, Left biceps reflex intensity grade: 2+, Right brachioradialis reflex intensity grade: 2+, Left brachioradialis reflex intensity grade: 2+, Right patellar reflex intensity grade: 2+, Left patellar reflex intensity grade: 2+, Right ankle reflex intensity grade: 2+ and Left ankle reflex intensity grade: 2+ Psych Appearance: grossly normal Affect: normal affect Attitude: cooperative Thought process: Normal thought process present Thought content: Normal thought content present Assessment & Plan Assessment & Plan (1) Pain in thumb joint with movement of right hand: Code(s): M25.541 - Pain in joints of right hand Category: Medical (2) Nocturnal leg cramps: Code(s): G47.62 - Sleep related leg cramps Category: Medical Plan Xray - Right Thumb Pain- no injury, r/o snuff box fracture. Sleep Apnea Patient Education: continue use of CPAP as patient has elevated Blood sugars, and hypertension, #1 modifiable risk factor for CV events is good blood pressure control. PT - Right Thumb pain on flexion and extension. Mood fluctuations: Magnesium 400 mg po at bedtime, B- vitamins as prescribed once daily. Orders: Orders XR hand LT min 3V Today M25.541 - Pain in joints of right hand PT Evaluation and Treatment Today M25.541 - Pain in joints of right hand Medications: New magnesium oxide 400 mg PO DAILY 60 days 60 tabs 1RF [id number] 5 mg-5 mg-37.5 mg-25 mg-1 mg 1 capsule orally; daily 60 days 60 caps 1RF G47.62 - Sleep related leg cramps Coding Level of Care Code Est Pt Level 3 (49301) Diagnoses Pain in thumb joint with movement of right hand M25.541 Nocturnal leg cramps G47.62 Time Spent (min) 30 Comment improving
[2024-03-02 10:23] VITALS: BP 120/70; BMI 30.4
--- OUTSIDE RECORDS SUMMARY | 2024-03-02 12:11 | XMS_ITS | Continuity of Care Document ---
Author Organization [facility] [address] [place] [address] Phone [phone] Care Team Providers Care Integrity Consultant Name Role Phone Jacob Martinez Care Team Information Eap Consultant + [phone] Problems Active Problems Provider Date Type 2 diabetes mellitus JUAN Walker Onse t: 03/29/2023 Dyslipidemia JUAN Walker Onset: 2023 Essential hypertension JUAN Walker Onset: 03/29/2023 Benign neoplasm of adrenal gland JUAN Walker Onset: 03/29/2023 Social History Type Date Description Comments Sex Unknown Tobacco Use Start: Unknown Never Smoked Cigarettes ETOH Use Never used alcohol Allergies and adverse reactions Active Allergies Criticality Reaction Severity Comments Date Penicillin Unable to assess criticality 03/29/2023 Invokana Unable to assess criticality 03/29/2023 Statins Unable to assess criticality 03/29/2023 Medications Active Medications SIG Qnty Indications Ordering Provider Date Gxwttovohsknp2mq Tablets 1 tablet by mouth at 11 pm 1tabs Damien Howe M.D. 03/29/2023 Tunzlvxdrt500hr Capsules Take 2 Capsules By Mouth AT Bedtime For 30 Days Jacob Martinez Jezcymspt29bm Tablets Take 1 Tablet By Mouth Daily Jacob Martinez Losartan Hctzrdaie64uu Tablets Take 1 Tablet By Mouth Daily Jacob Martinez Janumet [id number] Tablets ER 24HR Take 1 Tablet By Mouth Twice Daily Jacob Martinez Xrtmtwispwl521iv Capsules Take 1 Capsule By Mouth Three Times Daily Vin Luna Pioglitazone SPH43xo Tablets Take 1 Tablet By Mouth Daily Jacob Martinez Fluticasone Wffaxrhenk03lvn/Act Suspension Shake Liquid And Use 1 [place] In Each Nostril Daily Jacob Martinez Vital Signs Date Vital Result Comment 03/29/2023 10:53am BP Systolic 110 mmHg BP Diastolic 60 mmHg Heart Rate 75 /min Height 62 inches 5'2 Weight 174.25 lb BMI (Body Mass Index) 31.9 kg/m2 Results Test Acquired Date Facility Test Result H/L Range Note Laboratory test finding 04/14/2023 [facility] Renin, Plasma Activity 4.063 1 Laboratory test finding 04/02/2023 [facility] TSH 0.59 uIU/mL (0.4-4.2 ) Free T4 1.14 ng/dL (0.70-1. 80) Anti Thyroid Peroxidase AB <9.0 IU/mL (<34) 2 Renin, Plasma Activity Test not perform <SEE NOTE> 3 Aldosterone 4.6 4 Fract Plasma Metanephrines 04/02/2023 [facility] Plasma Normetanephrines 111.2 5 Plasma Metanephrines <25.0 6 Laboratory test finding 04/02/2023 [facility] Cortisol 1.2 g /dL 7 1 Reference range: 0.1 67 to 5.380 Unit: ng/mL/hr (NOTE) This test was developed and its performance characteristics determined by [facility]. It has not been cleared or approved by the Food and Drug Administration. [place] [address] 2 The results are assa y dependent and cannot be interchangeable with other assays. The antibody assay is being performed using the electrochemiluminescence immunoassay on the Tracy Zenobia immunoassay analyzer. A correlation with clinical presentation is recommended while interpreting the results. 3 Test not performed, specimen stability 4 Reference range: 0.0 to 30.0 Unit: ng/dL (NOTE) This test was developed and its performance characteristics determined by [facility]. It has not been cleared or approved by the Food and Drug Administration. [place] [address] CORRECTED ON AT 1506: PREVIOUSLY REPORTED 4.4 Reference range: 0.0 to 30.0 Unit: ng/dL 5 Reference range: 0.0 to 285.2 Unit: pg/mL (NOTE) This test was developed and its performance characteristics determined by [facility]. It has not been cleared or approved by the Food and Drug Administration. 6 Reference range: 0.0 to 88.0 Unit: pg/mL (NOTE) This test was developed and its performance characteristics determined by [facility]. It has not been cleared or approved by the Food and Drug Administration. 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
== END 2024-03-02 11:28 | disposition home or self-care (01) ==
PROVIDERS: PCP Nurse Practitioner Family; Visit Provider Physician Assistant Medical
DX: M25.541 Pain in joints of right hand (principal); G47.62 Sleep related leg cramps
CPT/HCPCS: 99213

== ENCOUNTER → 2024-03-02 10:12 | Outpatient (BNVA) | payer MEDICARE, SELFPAY | PROVIDERS: PCP Nurse Practitioner Family; Visit Provider Physician Assistant Medical | DX: M25.541 Pain in joints of right hand (principal); G47.62 Sleep related leg cramps | CPT/HCPCS: 99212 ==

== ENCOUNTER 2024-03-22 13:13 | Outpatient (REF) | payer MEDICARE, SELFPAY ==
--- NOTE | ~2024-03-22 | XR_ITS ---
EXAMINATION: XR THUMB, RIGHT CLINICAL INFORMATION: M25.541 - Pain in joints of right hand COMPARISON: None available. TECHNIQUE: Three views of the right thumb. FINDINGS: No fracture, malalignment, or suspicious bone lesion. Minimal osteoarthritis in the interphalangeal joint of the thumb. Mild arthritis at the first MCP joint, as well as the second and third MCP joints. Mild DIP joint arthritis of the second through fifth digits. Mild osteoarthritis of the first CMC joint. Mild chondrocalcinosis of the TFCC. Mild radiocarpal joint space narrowing. Carpal rows intact and normally aligned. XR/XR finger RT min 2V IMPRESSION: 1. 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 2. Mild osteoarthritis versus inflammatory arthropathy (CPPD) first through third MCP joints. Mild chondrocalcinosis of the TFCC noted. 3. 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 Electronically signed by: Mario Caballero MD 03/23/2024 10:29 AM NACHO
--- OUTSIDE RECORDS SUMMARY | 2024-03-22 15:22 | XMS_ITS | Clinical Summary ---
Author Organization [facility] Address [address] [place] [address] Phone Care Team Providers Care Inside Sales Director Name Role Phone Unavailable Primary Care Provider Unavailabl e Active Problems Problem Noted Date Diagnosed Date Essential hypertension 02/04/2024 Diabetes mellitus without me ntion of complication, type II or unspecified type, not stated as uncontrolled 02/04/2024 Family History Relation Status Comments Father Mother Social History Tobacco Use Types Packs/Day Years Used Date Smoking Tobacco: Never Alcohol Use Standard Drinks/Week Comments No 0 (1 standard drink = 0.6 oz pur e alcohol) Comments Unknown Sex and Gender Information Value Date Recorded Sex Assigned at Not on file Legal Sex Female 5:08 PM EST Gender Identity Not on file Sexual Orientation Not on file Plan of Treatment Upcoming Encounters Date Type Department Care Team (Late st Contact Info) Description 05/12/2024 10:30 AM EDT Office Visit [facility] [address] [place] [address] Luther Velasquez MD [address] [address] Health Maintenance Due Date Last Done Comments Breast Cancer Screening 1950 Colorectal Cancer Screening: Annual FOBT 05/05/2000 Colorectal Cancer Screening: Colonoscopy 05/05/2000 Colorectal Cancer Screening: Sigmoidoscopy 05/05/2000 Pneumococcal Vaccine: 65+ Ye ars (1 of 1 - PCV) 05/05/2016 Diabetes: Hemoglobin A1C 03/18/2020 Diabetes: Ophthalmology Exam 03/18/2020 Diabetes: Pedal Pulse Checked 03/18/2020 Diabetes: Sensory Foot Exam 03/18/2020 Diabetes: Visual Foot Exam 03/18/2020 Influenza Vaccine (#1) 2023 Hepatitis B Vaccine Aged Out No longe r eligible based on patient's age to complete this topic Insurance [employer] MEDICARE
== END 2024-03-22 13:14 | disposition home or self-care (01) ==
LOC: HO.HMGCX 13:13
PROVIDERS: PCP Nurse Practitioner Family; Visit Provider Nurse Practitioner Family
DX: M25.541 Pain in joints of right hand (principal); E11.9 Type 2 diabetes mellitus without complications; I10 Essential (primary) hypertension; E55.9 Vitamin D deficiency, unspecified
CPT/HCPCS: 73140; 99212

== ENCOUNTER → 2024-03-22 14:30 | Outpatient (BNV) | payer MEDICARE, SELFPAY | PROVIDERS: PCP Nurse Practitioner Family; Visit Provider Radiology Diagnostic Radiology | DX: M18.11 Unilateral primary osteoarthritis of first carpometacarpal joint, right hand (principal); M19.041 Primary osteoarthritis, right hand | CPT/HCPCS: 73140 ==

== ENCOUNTER 2024-04-13 08:01 | Outpatient (AMB) | payer MEDICARE, SELFPAY ==
--- OUTSIDE RECORDS SUMMARY | 2024-04-13 08:02 | XMS_ITS | Clinical Summary ---
Author Organization [facility] Address [address] [place] [address] Phone Care Team Providers Care Armoring Machine Operator Name Role Phone Unavailable Primary Care Provider [...] Office Visit [facility] [address] [facility] [place] [address] Luther Velasquez MD [address] [address] Health Maintenance Due Date Last [...]
--- OUTSIDE RECORDS SUMMARY | 2024-04-13 08:02 | XMS_ITS | Continuity of Care Document ---
Author Organization [facility] [address] [place] [address] Phone [phone] Care Team Providers Care Heading Repairer Name Role Phone Jacob Martinez Care Team Information Resistance Brazer + [phone] Problems Active Problems Provider Date Type 2 [...] Medications SIG Qnty Indications Ordering Provider Date Sbxbdyxrmziyx6rg Tablets 1 tablet by mouth at 11 pm 1tabs Damien Howe M.D. 03/29/2023 Oetgvdvmie400pl Capsules Take 2 Capsules By Mouth AT Bedtime For 30 Days Jacob Martinez Asnlhwfpu99vp Tablets Take 1 Tablet By Mouth Daily Jacob Martinez Losartan Xpogkndsg65kr Tablets Take 1 Tablet By Mouth Daily Jacob Martinez Janumet [id number] Tablets ER 24HR Take 1 Tablet By Mouth Twice Daily Jacob Martinez Jsqcjaopxif940gm Capsules Take 1 Capsule By Mouth Three Times Daily Vin Luna Pioglitazone WZA58nl Tablets Take 1 Tablet By Mouth Daily Jacob Martinez Fluticasone Iwnmbcjoxa67gok/Act Suspension Shake Liquid And Use 1 [place] In Each Nostril Daily Jacob Martinez Vital Signs Date Vital Result Comment 03/29/2023 10:53am BP Systolic 110 mmHg BP Diastolic 60 mmHg Heart Rate 75 /min Height 62 inches 5'2 Weight 174.25 lb BMI (Body Mass Index) 31.9 kg/m2 Results Test Acquired Date Facility Test Result H/L Range Note Laboratory test finding 04/14/2023 [facility] Renin, Plasma Activity 4.063 1 Laboratory test finding 04/02/2023 [facility] TSH 0.59 uIU/mL (0.4-4.2 ) Free T4 1.14 ng/dL (0.70-1. 80) Anti Thyroid Peroxidase AB <9.0 IU/mL (<34) 2 Renin, Plasma Activity Test not perform <SEE NOTE> 3 Aldosterone 4.6 4 Fract Plasma Metanephrines 04/02/2023 [facility] Plasma Normetanephrines 111.2 5 Plasma Metanephrines <25.0 6 Laboratory test finding 04/02/2023 [facility] Cortisol 1.2 g /dL 7 1 Reference range: 0.1 67 to 5.380 Unit: ng/mL/hr (NOTE) This test was developed and its performance characteristics determined by [facility]. It has not been cleared or approved by the Food and Drug Administration. [place] [address] 2 The results are assa y dependent [...] developed and its performance characteristics determined by [facility]. It has not been cleared or approved by the Food and Drug Administration. [place] [address] CORRECTED ON AT 1506: PREVIOUSLY REPORTED 4.4 Reference range: 0.0 to 30.0 Unit: ng/dL 5 Reference range: 0.0 to 285.2 Unit: pg/mL (NOTE) This test was developed and its performance characteristics determined by [facility]. It has not been cleared or approved by the Food and Drug Administration. 6 Reference range: 0.0 to 88.0 Unit: pg/mL (NOTE) This test was developed and its performance characteristics determined by [facility]. It has not been cleared or approved by the Food and Drug Administration. Test performed at [address] [address] 7 Reference Range: 6-10 am: 6.0-18.4 ug/dL [...]
[2024-04-13 08:11] VITALS: BP 130/80; PULSE 72; O2SAT 96
--- NOTE | 2024-04-13 08:11 | AM.OFFWIN_ITS ---
Intake Vital Signs 04/13/24 08:11 Weight 171 lb BP 130/80 Blood Pressure Location Lt brachial Position Sitting Pulse 72 Pulse Source Pulse Oximeter Pulse Oximetry (%) 96 Oxygen Delivery Method Room Air Intake Visit Reasons: EP fall on ice (no WC) neck, lt shoulder pain Intake Note: Patient here for left sided body pain after a fall last week. Patient Tobacco Use Status: Never used Tobacco Allergies Penicillins [PENICILLINS] Allergy (Unknown, Verified 04/13/24 08:17) UNKNOWN canagliflozin [Invokana] Adverse Reaction (Unknown, Verified 04/13/24 08:17) unknown statins Allergy (Unknown, Uncoded 04/13/24 08:17) muscle aches Do you need a note to return to daycare/school/sports/work: No HPI HPI Comments History of Present Illness Details History of Present Illness - The patient is a 73-year-old female pr esenting with pain in the left shoulder and back following a fall. - The fall on ice occurred approximately 11 days ago; no loss of consciousness or head impact. - Pain is reported on the left side, ext ending from the neck to the back, exacerbated by movement. - Full shoulder range of motion is obser fuad, with soreness but no significant restriction. - Treatment with 500mg ibuprofen provide d limited relief, and the pain is noted as worsening. Physical Exam General: Cooperative, healthy appearing, comfortable, no acute distress and well developed Orientation: Patient oriented x3 Limitations: No limitations Head: Normal to inspection Ears: Hearing grossly normal bilaterally Nose: Normal external nose present Face and sinus: Normal facial exam Eyes: Appearance normal, both eyes and all related structures Neck: Normal visual inspection and Yes full ROM, cervical spine non TTP, full ROM Respiratory: Normal respiratory effort and able to speak in complete sentences. Skin: No rashes or lesions noted Neuro: Patient oriented x3 Extremities: Full range of motion in the left shoulder, elbow and wrist, no TTP, no skin changes. [facility] Medical History Elevated hemidiaphragm Immunization refused Diabetes type 2, controlled Overweight (BMI 25.0-29.9) Dyslipidemia Essential hypertension Type 2 diabetes mellitus with unspecified complications Surgical History Hx of tubal ligation History of appendectomy Family History Father Heart disease Mother Heart disease Sister Breast cancer Social History Housing: Other Alcohol intake: never Patient Tobacco Use Status: Never used Tobacco e-Cigarette/Vaping Use: Never Used Second Hand Smoke Exposure: No service: No Current occupational status: employed Gender identity: Female Cognitive needs: No Hearing needs: No Vision needs: Yes Female Reproductive History Menstrual Age of Menarche: 17 Review of Systems Const All systems reviewed & are unremarkable except as noted in HPI and below Physical Exam Vital Signs: Last Vital Signs Pulse 72 04/13/24 08:11 BP 130/80 04/13/24 08:11 Pulse Ox 96 04/13/24 08:11 Oxygen Delivery Method Room Air 04/13/24 08:11 Back/Spine/Pelvis Thoracic/Lumbar Spine: No paraspinal muscle tenderness, No thoracic spinal tenderness and No lumbar spinal tenderness Assessment & Plan Assessment & Plan (1) Fall (on)(from) sidewalk curb, initial encounter: Code(s): W10.1XXA - Fall (on)(from) sidewalk curb, initial encounter Plan: Plan I plan to initiate diagnostic imaging via shoulder x-rays to exclude structural damage following the fall. I will prescribe naproxen for pain management, administered bi-daily, with instructions provided on medication interactions. A referral for physical therapy will be processed to assist in rehabilitation due to muscular pain along the left shoulder and back. Messaged PCP for PT referral as pain is getting worse 11 days out but PE was completely normal and I anticipate the XR to be negative for fx or dislocation. Patient was informed and verbally consented to the use of an ambient scribe for clinic note documentation during this visit. (2) Left shoulder pain: Code(s): M25.512 - Pain in left shoulder Qualifiers: Chronicity: acute Qualified Code(s): M25.512 - Pain in left shoulder Plan: as above Orders: Orders XR shoulder LT min 2V Today M25.512 - Pain in left shoulder, W10.1XXA - Fall (on)(from) sidewalk curb, initial encounter Medications: New naproxen 500 mg PO Q12H PRN 20 tabs 0RF pain Discontinued diclofenac sodium do not take with motrin or meloxicam. PLEASE USE SPARINGLY DUE TO DIABETES Discontinued Reason: Doctor's Order 75 mg PO BID 14 days PRN 28 tabs 0RF pain Coding Level of Care Code Est Pt Level 3 (20782) Diagnoses Fall (on)(from) sidewalk curb, initial encounter W10.1XXA Acute pain of left shoulder M25.512 Chronicity: acute
== END 2024-04-13 08:37 | disposition home or self-care (01) ==
PROVIDERS: PCP Nurse Practitioner Family; Visit Provider Physician Assistant
DX: M25.512 Pain in left shoulder (principal); W10.1XXA Fall (on)(from) sidewalk curb, initial encounter

== ENCOUNTER 2024-04-13 08:05 | Outpatient (REF) | payer MEDICARE, SELFPAY ==
--- NOTE | ~2024-04-13 | XR_ITS ---
EXAMINATION: XR SHOULDER 2 OR MORE VIEWS LEFT HISTORY: W10.1XXA - Fall (on)(from) sidewalk curb, initial encounter COMPARISON: There are no prior studies available for comparison. FINDINGS: Three views of the left shoulder are submitted. Osseous mineralization is normal. There is no fracture or dislocation. There is mild degenerative change of the glenohumeral joint and moderate osteoarthritis of the AC joint, with joint space narrowing and osteophyte formation. A tiny soft tissue calcification adjacent to the greater tuberosity of the humerus is likely related to the rotator cuff. XR/XR shoulder LT min 2V IMPRESSION: Degenerative changes as described. Probable rotator cuff calcification. No evidence of fracture of the left shoulder. Electronically signed by: Remy Carlson MD 04/13/2024 08:49 AM NACHO MUSTAFA
--- OUTSIDE RECORDS SUMMARY | 2024-04-13 08:55 | XMS_ITS | Continuity of Care Document ---
Author Organization [facility] [address] [place] [address] Phone [phone] Care Team Providers Care Data Entry Assistant Name Role Phone Jacob Martinez Care Team Information Blind Hooker + [phone] Problems Active Problems Provider Date Type 2 [...] Medications SIG Qnty Indications Ordering Provider Date Kmrojdezypjfv4ux Tablets 1 tablet by mouth at 11 pm 1tabs Damien Howe M.D. 03/29/2023 [id number] Capsules Take 2 Capsules By Mouth AT Bedtime For 30 Days Jacob Martinez Pvxvyqbrs51oj Tablets Take 1 Tablet By Mouth Daily Jacob Martinez Losartan Zixclztzr00cu Tablets Take 1 Tablet By Mouth Daily Jacob Martinez Janumet [id number] Tablets ER 24HR Take 1 Tablet By Mouth Twice Daily Jacob Martinez Kkocmyixwsq682ip Capsules Take 1 Capsule By Mouth Three Times Daily Vin Luna Pioglitazone SDI30co Tablets Take 1 Tablet By Mouth Daily Jacob Martinez Fluticasone Dnyvmmnmgz90ybs/Act Suspension Shake Liquid And Use 1 [place] In Each Nostril Daily Jacob Martinez Vital Signs Date Vital Result Comment 03/29/2023 10:53am BP Systolic 110 mmHg BP Diastolic 60 mmHg Heart Rate 75 /min Height 62 inches 5'2 Weight 174.25 lb BMI (Body Mass Index) 31.9 kg/m2 Results Test Acquired Date Facility Test Result H/L Range Note Laboratory test finding 04/14/2023 [facility] Renin, Plasma Activity 4.063 1 Laboratory test finding 04/02/2023 [facility] TSH 0.59 uIU/mL (0.4-4.2 ) Free T4 1.14 ng/dL (0.70-1. 80) Anti Thyroid Peroxidase AB <9.0 IU/mL (<34) 2 Renin, Plasma Activity Test not perform <SEE NOTE> 3 Aldosterone 4.6 4 Fract Plasma Metanephrines 04/02/2023 [facility] Plasma Normetanephrines 111.2 5 Plasma Metanephrines <25.0 6 Laboratory test finding 04/02/2023 [facility] Cortisol 1.2 g /dL 7 1 Reference range: 0.1 67 to 5.380 Unit: ng/mL/hr (NOTE) This test was developed and its performance characteristics determined by [facility]. It has not been cleared or approved by the Food and Drug Administration. [place] [address] 2 The results are assa y dependent [...] developed and its performance characteristics determined by [facility]. It has not been cleared or approved by the Food and Drug Administration. [place] [address] CORRECTED ON AT 1506: PREVIOUSLY REPORTED 4.4 Reference range: 0.0 to 30.0 Unit: ng/dL 5 Reference range: 0.0 to 285.2 Unit: pg/mL (NOTE) This test was developed and its performance characteristics determined by [facility]. It has not been cleared or approved by the Food and Drug Administration. 6 Reference range: 0.0 to 88.0 Unit: pg/mL (NOTE) This test was developed and its performance characteristics determined by [facility]. It has not been cleared or approved by the Food and Drug Administration. Test performed at [address] [address] 7 Reference Range: 6-10 am: 6.0-18.4 ug/dL [...]
== END 2024-04-13 08:06 | disposition home or self-care (01) ==
LOC: HO.HMGCX 08:05
PROVIDERS: PCP Nurse Practitioner Family; Visit Provider Physician Assistant
DX: M25.512 Pain in left shoulder (principal); W10.1XXA Fall (on)(from) sidewalk curb, initial encounter
CPT/HCPCS: 73030

== ENCOUNTER → 2024-04-13 08:35 | Outpatient (BNV) | payer MEDICARE, SELFPAY | PROVIDERS: PCP Nurse Practitioner Family; Visit Provider Radiology Diagnostic Radiology | DX: K52.9 Noninfective gastroenteritis and colitis, unspecified (principal) | CPT/HCPCS: 73030 ==

== ENCOUNTER 2024-04-17 11:25 | Outpatient (REF) | payer MEDICARE, SELFPAY ==
--- NOTE | ~2024-04-17 | XR_ITS ---
EXAMINATION: XR HAND, RIGHT CLINICAL INFORMATION: M79.641 - Pain in right hand COMPARISON: None available. TECHNIQUE: PA, lateral, and oblique views of the right hand. FINDINGS: There is mild loss of first MCP joint space with periarticular spurring. Minimal loss of PIP and DIP joint spaces seen as well with mild periarticular spurring the DIP joints. No visible fracture, dislocation or subluxation. No juxta-articular osteoporosis. The soft tissues are normal. No visible fracture. XR/XR hand RT min 3V IMPRESSION: Degenerative osteoporotic changes first MCP joint, PIP and DIP joints. There is no visible acute fracture or dislocation. Electronically signed by: Thomas Simeon MD 04/18/2024 08:59 AM EST
--- OUTSIDE RECORDS SUMMARY | 2024-04-17 13:33 | XMS_ITS | Continuity of Care Document ---
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 03/29/2023 Uvlwgepnbn800ol Capsules Take 2 Capsules By Mouth AT Bedtime For 30 Days Jacob Martinez Alswctbgr58dz Tablets Take 1 Tablet By Mouth Daily Jacob Martinez Losartan Xolbapmcu35fb Tablets Take 1 Tablet By Mouth Daily Jacob Martinez Janumet [id number] Tablets ER 24HR Take 1 Tablet By Mouth Twice Daily Jacob Martinez Zggmlivaznb316cw Capsules Take 1 Capsule By Mouth Three Times Daily Vin Luna Pioglitazone LHQ56qw Tablets Take 1 Tablet By Mouth Daily Jacob Martinez Fluticasone Ottzcdctfz75mjl/Act Suspension Shake Liquid And Use 1 [place] In Each Nostril Daily Jacob Martinez Vital Signs Date Vital Result Comment 03/29/2023 10:53am BP Systolic 110 mmHg BP Diastolic 60 mmHg Heart Rate 75 /min Height 62 inches 5'2 Weight 174.25 lb BMI (Body Mass Index) 31.9 kg/m2 Results Test Acquired Date Facility Test Result H/L Range Note Laboratory test finding 04/14/2023 [facility] Renin, Plasma Activity 4.063 1 Laboratory test finding 04/02/2023 [facility] TSH 0.59 uIU/mL (0.4-4.2 ) Free T4 1.14 ng/dL (0.70-1. 80) Anti Thyroid Peroxidase AB <9.0 IU/mL (<34) 2 Renin, Plasma Activity Test not perform <SEE NOTE> 3 Aldosterone 4.6 4 Fract Plasma Metanephrines 04/02/2023 [facility] Plasma Normetanephrines 111.2 5 Plasma Metanephrines <25.0 6 Laboratory test finding 04/02/2023 [facility] Cortisol 1.2 g /dL 7 1 Reference range: 0.1 67 to 5.380 Unit: ng/mL/hr (NOTE) This test was developed and its performance characteristics determined by [facility]. It has not been cleared or approved by the Food and Drug Administration. [place] [address] 2 The results are assa y dependent [...] developed and its performance characteristics determined by [facility]. It has not been cleared or approved by the Food and Drug Administration. [place] [address] CORRECTED ON AT 1506: PREVIOUSLY REPORTED 4.4 Reference range: 0.0 to 30.0 Unit: ng/dL 5 Reference range: 0.0 to 285.2 Unit: pg/mL (NOTE) This test was developed and its performance characteristics determined by [facility]. It has not been cleared or approved by the Food and Drug Administration. 6 Reference range: 0.0 to 88.0 Unit: pg/mL (NOTE) This test was developed and its performance characteristics determined by [facility]. It has not been cleared or approved by the Food and Drug Administration. Test performed at [address] [address] 7 Reference Range: 6-10 am: 6.0-18.4 ug/dL [...]
--- OUTSIDE RECORDS SUMMARY | 2024-04-17 13:33 | XMS_ITS | Clinical Summary ---
Author Organization [facility] Address [address] [place] [address] Phone Care Team Providers Care Computer Networking Instructor Name Role Phone Unavailable Primary Care Provider [...] Office Visit [facility] [address] [place] [address] Luther Velasquez MD [address] [address] Health Maintenance Due Date Last [...]
== END 2024-04-17 11:26 | disposition home or self-care (01) ==
LOC: HO.HOSX 11:25
DX: M79.641 Pain in right hand (principal); M25.541 Pain in joints of right hand
CPT/HCPCS: 73130; 99202

== ENCOUNTER 2024-04-17 12:42 | Outpatient (AMB) | payer MEDICARE, SELFPAY ==
[2024-04-17 12:56] VITALS: BMI 30.6
--- NOTE | 2024-04-17 12:56 | A.OFFVIS_ITS ---
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 Patient reports her right thumb wont bend unless she manually bends it. She also feels like her right thumb dislocates and it is very painful. She has only tried Ibuprofen with some relief. Patient reports generalized tingling on her right hand. Denies prior injuries or surgeries to the right hand. 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 Patient reports her right thumb wont bend unless she manually bends it. She also feels like her right thumb dislocates and it is very painful. She has only tried Ibuprofen with some relief. Patient reports generalized tingling on her right hand. Denies prior injuries or surgeries to the right hand. [facility] Medical History Elevated hemidiaphragm Immunization refused Diabetes type 2, controlled Overweight (BMI 25.0-29.9) Dyslipidemia Essential hypertension Type 2 diabetes mellitus with unspecified complications Surgical History Hx of tubal ligation History of appendectomy Family History Father Heart disease Mother Heart disease Sister Breast cancer Social History (Updated 04/17/24 @ 13:01 by ANGELY Riley) Housing: Other Alcohol intake: never Patient Tobacco Use Status: Never used Tobacco e-Cigarette/Vaping Use: Never Used Second Hand Smoke Exposure: No service: No Current occupational status: employed 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, [employer] Gender identity: Female Cognitive needs: No Hearing needs: No Vision needs: Yes Female Reproductive History Menstrual Age of Menarche: 17 Review of Systems Const All systems reviewed & are unremarkable except as noted in HPI and below Physical Exam Vital Signs: BMI result Body Mass Index 30.6 Extrem Other: Patient is alert, oriented, and in no acute distress. Neuro: Normal sensation of the tips of all digits of the right hand at this time Vascular: Cap refill brisk Pain: Patient reports tenderness to palpation of the IP joint of the right thumb No tenderness to palpation of the A1 manda of the right thumb Pain associated with visible and palpable catching of the right thumb ROM: Patient does have visible and palpable catching of the right thumb, although this is unclear if it was at the IP joint or a trigger thumb Patient is able to flex and extend all other digits of the right hand fully and without difficulty Skin: No lacerations or abrasions. General: No ecchymosis, erythema, or evidence of infection. Psych: Appears grossly normal Affect normal Attitude cooperative Results Reviewed Results Reviewed: X-rays obtained in the office today and independently reviewed by me, Wes Hunter PA-C, demonstrate no fracture or acute bony abnormality of the right hand. Assessment & Plan Assessment & Plan (1) Pain in thumb joint with movement of right hand: Code(s): M25.541 - Pain in joints of right hand Category: Medical Plan 1. Catching of right thumb Concern for trigger thumb versus potential joint instability issue Due to the unclear nature of the patient's locking and catching, I feel it was best to refer her to Dr. Doyle to make a definitive assessment Patient states understanding of this and is amenable to this plan Patient will follow-up for next available appointment with Dr. Doyle, sooner with any acute concerns Orders: Orders XR hand RT min 3V Today M79.641 - Pain in right hand Coding Level of Care Code New Pt Level 3 (55420) Diagnoses Pain in thumb joint with movement of right hand M25.541
--- OUTSIDE RECORDS SUMMARY | 2024-04-17 14:48 | XMS_ITS | Continuity of Care Document ---
Author Organization [facility] [address] [place] [address] Phone [phone] Care Team Providers Care Watershed Coordinator Name Role Phone Jacob Martinez Care Team Information Teacher Selection Specialist + [phone] Problems Active Problems Provider Date Type 2 [...] Medications SIG Qnty Indications Ordering Provider Date Whfdcmeiuimxj8hy Tablets 1 tablet by mouth at 11 pm 1tabs Damien Howe M.D. 03/29/2023 Xtpncwlnxc588xv Capsules Take 2 Capsules By Mouth AT Bedtime For 30 Days Jacob Martinez Auiqrcdrz51eh Tablets Take 1 Tablet By Mouth Daily Jacob Martinez Losartan Gvvzknbib34eo Tablets Take 1 Tablet By Mouth Daily Jacob Martinez Janumet [id number] Tablets ER 24HR Take 1 Tablet By Mouth Twice Daily Jacob Martinez Zqldhkcyvgu246qw Capsules Take 1 Capsule By Mouth Three Times Daily Vin Luna Pioglitazone UGM07jm Tablets Take 1 Tablet By Mouth Daily Jacob Martinez Fluticasone Sbqyskefxe06duf/Act Suspension Shake Liquid And Use 1 [place] In Each Nostril Daily Jacob Martienz Vital Signs Date Vital Result Comment 03/29/2023 10:53am BP Systolic 110 mmHg BP Diastolic 60 mmHg Heart Rate 75 /min Height 62 inches 5'2 Weight 174.25 lb BMI (Body Mass Index) 31.9 kg/m2 Results Test Acquired Date Facility Test Result H/L Range Note Laboratory test finding 04/14/2023 [facility] Renin, Plasma Activity 4.063 1 Laboratory test finding 04/02/2023 [facility] TSH 0.59 uIU/mL (0.4-4.2 ) Free T4 1.14 ng/dL (0.70-1. 80) Anti Thyroid Peroxidase AB <9.0 IU/mL (<34) 2 Renin, Plasma Activity Test not perform <SEE NOTE> 3 Aldosterone 4.6 4 Fract Plasma Metanephrines 04/02/2023 [facility] Plasma Normetanephrines 111.2 5 Plasma Metanephrines <25.0 6 Laboratory test finding 04/02/2023 [facility] Lab Cortisol 1.2 g /dL 7 1 Reference range: 0.1 67 to 5.380 Unit: ng/mL/hr (NOTE) This test was developed and its performance characteristics determined by [facility]. It has not been cleared or approved by the Food and Drug Administration. [place] [address] 2 The results are assa y dependent [...] developed and its performance characteristics determined by [facility]. It has not been cleared or approved by the Food and Drug Administration. [place] [address] CORRECTED ON AT 1506: PREVIOUSLY REPORTED 4.4 Reference range: 0.0 to 30.0 Unit: ng/dL 5 Reference range: 0.0 to 285.2 Unit: pg/mL (NOTE) This test was developed and its performance characteristics determined by [facility]. It has not been cleared or approved by the Food and Drug Administration. 6 Reference range: 0.0 to 88.0 Unit: pg/mL (NOTE) This test was developed and its performance characteristics determined by [facility]. It has not been cleared or approved by the Food and Drug Administration. Test performed at [address] [address] 7 Reference Range: 6-10 am: 6.0-18.4 ug/dL [...]
--- OUTSIDE RECORDS SUMMARY | 2024-04-17 14:48 | XMS_ITS | Clinical Summary ---
Author Organization [facility] Address [address] [place] [address] Phone Care Team Providers Care Revival Clerk Name Role Phone Unavailable Primary Care Provider [...] Office Visit [facility] [address] [address] [address] [place] [address] Luther Velasquez MD [address] [address] Health Maintenance Due Date Last [...] to complete this topic [place] [address]
== END 2024-04-17 13:30 | disposition home or self-care (01) ==
PROVIDERS: PCP Nurse Practitioner Family
DX: M25.541 Pain in joints of right hand (principal)
CPT/HCPCS: 99203

== ENCOUNTER → 2024-04-17 12:51 | Outpatient (BNV) | payer MEDICARE, SELFPAY | PROVIDERS: Visit Provider Radiology Diagnostic Radiology | DX: M79.641 Pain in right hand (principal) | CPT/HCPCS: 73130 ==

== ENCOUNTER 2024-05-30 12:45 | Outpatient (AMB) | payer MEDICARE, SELFPAY ==
--- NOTE | 2024-05-30 12:59 | A.OFFVIS_ITS ---
Vital Signs 05/30/24 13:00 Height 5 ft 3 in Weight 172 lb BMI 30.5 Intake Visit Reasons: OV- R thumb catching, ? trigger , joint issue Intake Note: Kylah 74 yr old female presents today for a follow up visit for her Pain in thumb joint with movement of right hand. Last seen with Roque Harvey who wanted patient to be seen with Dr Doyle for a trigger thumb evaluation. STates since she was last seen with Roque Harvey her pain has improved especially using the her brace (comfort cool)however she is now also having shooting pain from her IP to MCP. Allergies Penicillins [PENICILLINS] Allergy (Unknown, Verified 05/30/24 13:09) UNKNOWN canagliflozin [Invokana] Adverse Reaction (Unknown, Verified 05/30/24 13:09) unknown statins Allergy (Unknown, Uncoded 05/30/24 13:09) muscle aches HPI HPI OV- R thumb catching, ? trigger , joint issue: Details: Kylah is a 74 year old right hand dominant Diabetic woman who presents with complaints of right thumb pain. She complains of pain in her right thumb, worse with ROM. She says she has a new shooting pain between her IP & MCP joint. She says her overall pain has improved from wearing her Comfort cool brace. She says she is unemployed. [facility] Medical History Elevated hemidiaphragm Immunization refused Diabetes type 2, controlled Overweight (BMI 25.0-29.9) Dyslipidemia Essential hypertension Type 2 diabetes mellitus with unspecified complications Surgical History Hx of tubal ligation History of appendectomy Family History Father Heart disease Mother Heart disease Sister Breast cancer Social History Housing: Other Alcohol intake: never Patient Tobacco Use Status: Never used Tobacco e-Cigarette/Vaping Use: Never Used Second Hand Smoke Exposure: No service: No Current occupational status: employed 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, [employer] Gender identity: Female Cognitive needs: No Hearing needs: No Vision needs: Yes Female Reproductive History Menstrual Age of Menarche: 17 Review of Systems Const All systems reviewed & are unremarkable except as noted in HPI and below Physical Exam Vital Signs: BMI result Body Mass Index 30.5 Const General: cooperative, healthy appearing and no acute distress Orientation/consciousness: patient oriented x3 HEENT Head: Yes normocephalic and Yes atraumatic Eyes EOM: EOMs intact bilaterally Resp Effort & Inspection: normal respiratory effort and able to speak in complete sentences Cardio Jugular venous distension: no JVD Skin General skin exam: turgor normal Rashes: no rashes Neuro General: patient oriented x3 Extrem Other: Evaluation of Right Upper Extremity: The patient is alert, oriented, and in no acute distress Neuro: Median, Ulnar, Radial nerves motor and sensory intact and sensation is normal to the tips of all digits Vascular: Cap refill brisk ROM: She can make a fist and extend all her digits Visible & palpable locking & catching of the thumb IP joint. Tending to be locked in extension, but with encouragement I can get her to flex the IP joint and it would get stuck. Tender over the thumb a1 manda Skin: No lacerations or abrasions. General: No Ecchymosis. No Erythema or evidence of infection. Radiographs: 3 views of the right were taken and viewed by me today in clinic. They show no fractures or dislocations. There is some mild basal joint osteoarthritis, with mild subluxation of the basal joint. Psych Appearance: grossly normal Affect: normal affect Attitude: cooperative Assessment & Plan Assessment & Plan (1) Trigger thumb, right thumb: Code(s): M65.311 - Trigger thumb, right thumb Category: Medical (2) Diabetes: Code(s): E11.9 - Type 2 diabetes mellitus without complications Category: Medical Plan Assessment & Plan: 1. Right trigger thumb I educated her about this condition I discussed operative and non-operative treatment options Given the severity of her symptoms, I recommend surgery, and she is in agreement The risks and benefits of operative treatment were discussed with the patient and the patient wishes to proceed with surgery. These risks include, but are not limited to risk of damage to blood vessels, nerves, tendons, infection, recurrence, incomplete relief of preoperative symptoms, persistent pain, possible need for further surgery and the risks associated with regional blocks and anesthesia. The plan is to take the patient to the operating room sometime in the next few weeks for the following procedures: 1. Right trigger thumb release, under local All of the preoperative paperwork including the consent was reviewed today. All the patient's questions were answered. The patient understands that they will be contacted by our patient scheduler soon to schedule this procedure She denies blood thinners, asthma, heart, lung, kidney issues She is a Diabetic, her most recent HgA1c was 7.4% on 07/08/23. They will need an updated HgA1c that is <8.1% in order to proceed with surgery, and they expressed understanding Scribed for Shanelle Doyle MD by Arvin Kennedy, medical office manager, on 05/30/24 at 1:25 PM, EST. Coding Level of Care Code Est Pt Level 4 (30824) Diagnoses Trigger thumb, right thumb M65.311 Diabetes E11.9
[2024-05-30 13:00] VITALS: BMI 30.5
--- OUTSIDE RECORDS SUMMARY | 2024-05-30 15:30 | XMS_ITS | Continuity of Care Document ---
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 03/29/2023 [id number] Capsules Take 2 Capsules By Mouth AT Bedtime For 30 Days Jacob Martinez Mnxjtgwop37qb Tablets Take 1 Tablet By Mouth Daily Jacob Martinez Losartan Schmiwqxe68va Tablets Take 1 Tablet By Mouth Daily Jacob Martinez Janumet [id number] Tablets ER 24HR Take 1 Tablet By Mouth Twice Daily Jacob Martinez Kptmuqaiccg925qt Capsules Take 1 Capsule By Mouth Three Times Daily Vin Luna Pioglitazone LVM00vw Tablets Take 1 Tablet By Mouth Daily Jacob Martinez Fluticasone Nagjhrnblj92xru/Act Suspension Shake Liquid And Use 1 [place] In Each Nostril Daily Jacob Martinez Vital Signs Date Vital Result Comment 03/29/2023 10:53am BP Systolic 110 mmHg BP Diastolic 60 mmHg Heart Rate 75 /min Height 62 inches 5'2 Weight 174.25 lb BMI (Body Mass Index) 31.9 kg/m2 Results Test Acquired Date Facility Test Result H/L Range Note Renin, Plasma Activity 04/14/2023 [facility] Renin, Plasma Activity 4.063 1 TSH 04/02/2023 [facility] TSH 0.59 uIU/mL (0.4-4.2 ) Free T4 04/02/2023 [facility] Free T4 1.14 ng/dL (0.70-1. 80) Anti Thyroid Peroxidase AB 04/02/2023 [facility] Anti Thyroid Peroxidase AB <9.0 IU/mL (<34) 2 Renin, Plasma Activity 04/02/2023 [facility] Renin, Plasma Activity Test not perform <SEE NOTE> 3 Aldosterone 04/02/2023 [facility] Aldosterone 4.6 4 Fract Plasma Metanephrines 04/02/2023 [facility] Plasma Normetanephrines 111.2 5 Plasma Metanephrines <25.0 6 Cortisol 04/02/2023 [facility] Cortisol 1.2 g /dL 7 1 Reference range: 0.1 67 to 5.380 Unit: ng/mL/hr (NOTE) This test was developed and its performance characteristics determined by [facility]. It has not been cleared or approved by the Food and Drug Administration. [place] [address] 2 The results are assa y dependent [...] developed and its performance characteristics determined by [facility]. It has not been cleared or approved by the Food and Drug Administration. [place] [address] CORRECTED ON AT 1506: PREVIOUSLY REPORTED 4.4 [...] Food and Drug Administration. 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
== END 2024-05-30 13:38 | disposition home or self-care (01) ==
LOC: HO.HOS 12:45
PROVIDERS: PCP Nurse Practitioner Family; Visit Provider Orthopaedic Surgery
DX: M65.311 Trigger thumb, right thumb (principal); E11.9 Type 2 diabetes mellitus without complications
CPT/HCPCS: 99214

== ENCOUNTER → 2024-05-30 12:45 | Outpatient (BNVA) | payer MEDICARE, SELFPAY | PROVIDERS: PCP Nurse Practitioner Family; Visit Provider Orthopaedic Surgery | DX: M65.311 Trigger thumb, right thumb (principal); E11.9 Type 2 diabetes mellitus without complications | CPT/HCPCS: 99212 ==

== ENCOUNTER 2024-07-26 10:25 | Outpatient (REF) | payer MEDICARE, SELFPAY ==
--- OUTSIDE RECORDS SUMMARY | 2024-07-26 11:51 | XMS_ITS | Patient Health Record ---
[facility] Address [address] [place] [address] Care Team Providers Care Business Office Associate Name Role Phone Robbi MAYER, Kymberly Ziegler Primary Care Provider Un available Neal Clayton Unavailable [phone] Allergies Allergen (clinical drug ingredient) Drug/Non Drug Allergy documented on EMR Reaction Allergy Type Onset Date Status Penicillin itchy Drug Allergy Active Reason For Referral No Information Medications Medication SIG (Take, Route, Frequency, Duration) Notes Start Date End Date Status Simvastatin 10 MG 1 tablet in the even ing Orally Once a day for 30 day(s) Active Aspirin 81 MG 1 tablet Orally Once a day for 30 day(s) Active Extra-Depth Diabetic Shoes with 3 Pair Custom heat-molded multi-density innersoles . 1pair shoes/3sets inserts . . for 1 year 08/15/2012 Active Losartan Potassium 50 MG 1 tablet Orally Once a day for 30 day(s) Active metFORMIN HCl 1000 MG 1 tablet with meal s Orally Twice a day for 30 day(s) Active glyBURIDE 5 MG 2 tablets Orally twi ce a day for 30 day(s) Active Janumet 50-1000 MG 1 tablet with meals Orally once a day for 30 day(s) Active Problems Problem Type SNOMED Code ICD Code Onset Dates Problem Status W/U Status Risk Notes Problem Neurologic disorder associated with type II diabetes mellitus (675742803) Diabetic - NIDDM/Neuropathy (250.60) Active confirmed Problem Hammer toe (884068491) Hammer toe (735.4) Active confirmed Problem Onychomycosis (711824382) Onychomycosis (110.1) Active confirmed Problem Pain in limb (19021463) Pain in Limb (729.5) Active confirmed Plan Of Treatment Pending Test Test Name Order Date [id number] NAIL, 6 OR MORE 08/15/2012 [id number] SKIN LESIONS, 2 TO 4 08/16/19 13 Insurance Providers Payer Name Payer Address Payer Phone Subscriber Number Group Number Insured Name Patient Relationship to Insured Coverage Start Date Coverage End Date Medicare National Govt Sv[employer] [address] [place] [address] [id number] Kylah Lewis Self - patient is the insured 5 Medical (General) History Medical History History ICD Code Arthritis diabetes mellitus high blood pressure cholesterol Surgical History Surgery Date(Month/Year) appendectomy tubal surgery
[2024-07-26 13:18] LABS: MANUAL DIFF FLAG NO
[2024-07-26 13:20] LABS: Appearance Urine Clear; Color Urine Yellow; Glucose Urine UA >=1000 mg/dL (Negative); Leukocyte Esterase Urine Negative (Negative); Nitrite Urine Negative (Negative); PH 6.5 (5.0-9.0); Specific Gravity - Urine 1.025 (1.005-1.025); UMIC TRIGGER UACC YES; Urine Blood Negative (Negative); Urine Ketones Negative (Negative); Urine Protein Negative (Neg-Trace)
[2024-07-26 13:28] LABS: Bacteria Urine None Seen (None Seen); Hyaline Casts Urine 0-2 /LPF (0-2); RBC Urine 0-2 /HPF (0-2); Squamous Epithelial Cell Urine 0-2 /HPF (0-2); WBC Urine 0-5 /HPF (0-5)
[2024-07-26 13:42] LABS: Basophils Absolute Auto 0.1 X10*3/uL (0.0-0.2); Basophils Percent Auto 0.8 % (0-2); Eosinophils Absolute Auto 0.1 X10*3/uL (0.0-0.4); Eosinophils Percent Auto 0.8 % (0-4); Hematocrit 43.7 % (37.0-47.0); Hemoglobin 13.9 g/dl (12.0-16.0); Imm Gran Abs Auto 0.02 X10*3/uL (0.00-0.03); Imm Gran Pct Auto 0.3 % (0.0-0.4); Lymphocytes Absolute Auto 1.8 X10*3/uL (1.2-4.9); Lymphocytes Percent Auto 27.2 % (20-40); Mean Corpuscular HGB Conc 31.8 g/dl (31.0-35.0); Mean Corpuscular Hemoglobin 29.1 pg (27.0-33.0); Mean Corpuscular Volume 91.4 fL (80.0-98.0); Mean Platelet Volume 10.4 fL (9.4-12.3); Monocytes Absolute Auto 0.4 X10*3/uL (0.1-1.2); Monocytes Percent Auto 5.7 % (2-11); Neutrophils Absolute Auto 4.3 x10*3/uL (2.0-8.3); Neutrophils Percent Auto 65.2 % (45-73); Platelet Count 276 X10*3/uL (160-400); Red Blood Count 4.78 X10*6/uL (4.20-5.50); Red Cell Distribution Width 15.3 % (11.0-16.0); White Blood Count 6.5 X10*3/uL (4.8-10.8)
[2024-07-26 13:57] LABS: Alanine Aminotransferase 23 U/L (0-31); Albumin Level 4.4 g/dL (3.5-5.0); Alkaline Phosphatase 63 U/L (39-117); Anion Gap 10 (12-20); Aspartate Amino Transferase 32 U/L (5-31); Bilirubin Total 0.3 mg/dL (0.0-1.0); Blood Urea Nitrogen 18 mg/dL (9-16); Calcium 10.7 mg/dL (8.4-10.2); Carbon Dioxide 30 mmol/L (22-29); Chloride 103 mmol/L (96-108); Cholesterol 180 mg/dL (<200); Estimated Glomerular Filt Rate 50; Glucose Fasting 122 mg/dL (60-99); HDL Cholesterol 74 mg/dL (>40); LDL Cholesterol Calculated 91 mg/dL (<100); Potassium 4.4 mmol/L (3.3-5.1); Sodium 139 mmol/L (135-145); Total Protein 7.1 g/dL (6.5-8.0); Triglycerides 76 mg/dL (<150)
[2024-07-26 14:20] LABS: TSH reflex Free T4 0.73 uIU/mL (0.32-4.0)
== END 2024-07-26 10:26 | disposition home or self-care (01) ==
LOC: HO.HMGCLDS 10:25
PROVIDERS: PCP Nurse Practitioner Family; Visit Provider Nurse Practitioner Family
DX: E11.9 Type 2 diabetes mellitus without complications (principal); E55.9 Vitamin D deficiency, unspecified; I10 Essential (primary) hypertension
CPT/HCPCS: 36415; 80053; 80061; 81001; 82306; 84443; 85025

== ENCOUNTER 2024-07-31 10:12 | Outpatient (REF) | payer MEDICARE, SELFPAY ==
[2024-07-31 14:06] LABS: Parathyroid Hormone Intact 46.1 pg/mL (8.7-77.1)
[2024-08-01 16:28] LABS: Calcium, Ionized 5.6 mg/dL (4.7-5.5)
== END 2024-07-31 10:13 | disposition home or self-care (01) ==
LOC: HO.HMGCLDS 10:12
PROVIDERS: PCP Nurse Practitioner Family; Visit Provider Nurse Practitioner Family
DX: E83.52 Hypercalcemia (principal); E55.9 Vitamin D deficiency, unspecified; E11.9 Type 2 diabetes mellitus without complications; Z78.0 Asymptomatic menopausal state
CPT/HCPCS: 36415; 82330; 83036; 83970; 96127; 99212

== ENCOUNTER 2024-07-31 10:12 | Outpatient (AMB) | payer MEDICARE, SELFPAY ==
--- NOTE | 2024-07-31 10:15 | MHC.PC.OV ---
Vital Signs 07/31/24 10:26 Height 5 ft 3 in Weight 169 lb BMI 29.9 BP 130/68 Blood Pressure Location Rt brachial Position Sitting Pulse 71 Pulse Source Pulse Oximeter Temp 98.1 F Temp Source Oral Pulse Oximetry (%) 98 Oxygen Delivery Method Room Air Intake Visit Reasons: 4 months f/up - see comments Allergies Penicillins [PENICILLINS] Allergy (Unknown, Verified 07/31/24 10:47) UNKNOWN canagliflozin [Invokana] Adverse Reaction (Unknown, Verified 07/31/24 10:47) unknown statins Allergy (Unknown, Uncoded 07/31/24 10:47) muscle aches Medication List - Last Reconciled 07/31/24 by Jacob Martinez, GYM TEACHER-BC albuterol sulfate 90 mcg/actuation (Ventolin HFA) 1 inh inhalation QID PRN aspirin 81 mg PO DAILY B2-I1-F1-A0-R0-KN-B12-C 5 mg-5 mg-37.5 mg-25 mg-1 mg 1 capsule orally; daily 60 days cetirizine 10 mg PO DAILY PRN cyclobenzaprine 10 mg PO TID PRN empagliflozin (Jardiance) 5 mg (1/2 x 10 mg) PO DAILY ezetimibe 10 mg PO DAILY 90 days fluticasone propionate 50 mcg/actuation 1 spray intranasal DAILY hydrocortisone 2.5% [address] BID PRN 14 days inhalational spacing device (BreatheRite MDI Spacer) As directed with metered dose inhaler device lancets As directed tree times a day losartan 50 mg PO DAILY 90 days magnesium oxide 400 mg PO DAILY 60 days naproxen 500 mg PO Q12H PRN ondansetron 4 mg PO Q6H PRN OneTouch Verio test strips (blood sugar diagnostic) 3 times a day NS pioglitazone 45 mg PO DAILY sitagliptin phos-metformin 50-1,000 mg ER 1 tab PO BID 90 days vitamin B complex 1 tab PO DAILY 30 days Tobacco use date assessed: 07/31/24 Fall risk assessment: No Falls in past year Last assessed Fall Risk: 07/31/24 Dental Screening Dental Screen Date: 07/31/24 Did you have a dental visit in the last 12 months?: No Did you have a dental problem in the last 6 months where you did not have access to dental care?: No Was dental information given to patient?: No HPI 4 months f/up - see comments HPI Details Chief Complaint The patient presented for a follow-up regarding diabetes management and elevated calcium levels. History of Present Illness The patient is a 74-year-old female presenting with a follow-up for diabetes management and elevated calcium levels. She denies any chest pain or shortness of breath and reports no current neuropathy symptoms. A monofilament test confirmed intact sensation in her feet, and dorsalis pedis pulses were palpable bilaterally. Her calcium levels were noted to be slightly elevated, prompting further investigation with a parathyroid hormone test and ionized calcium measurement, vitamin d is WNL. The patient is otherwise doing well and is scheduled for a follow-up in four months. refused vaccinations Social History Health Maintenance Review of Systems - Cardiovascular: Denies chest pain - Respiratory: Denies shortness of breath - Neurological: Denies neuropathy Physical Exam General: Cooperative, healthy appearing, comfortable, no acute distress and well developed Orientation: Patient oriented x3 Limitations: No limitations Head: Normal to inspection Ears: Hearing grossly normal bilaterally Nose: Normal external nose present Face and sinus: Normal facial exam Eyes: Appearance normal, both eyes and all related structures Neck: Normal visual inspection and Yes full ROM Respiratory: Normal respiratory effort and able to speak in complete sentences. Clear to auscultation bilaterally Cardiovascular: Faint systolic murmur. Normal S1 and S2 GI: Normal to inspection. Soft to palpation and nontender Skin: No rashes or lesions noted Neuro: Patient oriented x3 Extremities: Positive sensation to monofilament in feet. Feet were intact. Pulse palpable at dorsalis pedis bilaterally. Normal to inspection Results - Labs: Elevated calcium levels Plan The plan includes monitoring the patient's diabetes management and addressing the elevated calcium levels. A parathyroid hormone test and ionized calcium measurement will be conducted to further evaluate the cause of the elevated calcium. The patient is advised to return for a follow-up in four months to reassess her condition and adjust the management plan as necessary. Discussion Notes I discussed with the patient the importance of monitoring her diabetes and the need to investigate the elevated calcium levels further. We agreed on conducting a parathyroid hormone test and ionized calcium measurement to determine the underlying cause. I advised her to return for a follow-up in four months to evaluate her progress and make any necessary adjustments to her treatment plan. Patient Instructions - Continue monitoring blood sugar levels regularly. - Follow up with the recommended parathyroid hormone and ionized calcium tests. - Return for a follow-up appointment in four months. 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 1. Little interest or pleasure in doing things: not at all 2. Feeling down, depressed, or hopeless: several days 3. Trouble falling or staying asleep, or sleeping too much: not at all 4. Feeling tired or having little energy: not at all 5. Poor appetite or overeating: not at all 6. Feeling bad about yourself - or that you are a failure or have let yourself or your family down: not at all 7. Trouble concentrating on things, such as reading the newspaper or watching television: not at all 8. Moving or speaking so slowly that other people could have noticed. Or the opposite - being so fidgety or restless that you have been moving around a lot more than usual: not at all 9. Thoughts that you would be better off or of hurting yourself in some way: not at all Total score: 1 Depression Screening Interpretation: Negative Depression Screening Done: Yes 42130 - PHQ-9 Billing: Yes Source: Developed by Drs. Remy Castanon, Tabby Scott, Robert Reynolds and colleagues, with an educational fe from [employer]. Thrive Questionnaire Date Thrive assessed: 07/31/24 I am a: Patient What is your living situation today?: I choose not to answer this question Within the past 12 months, did you worry whether your food would run out before you got money to buy more?: Sometimes True Do you have trouble getting transportation to medical appointments?: No Do you have trouble paying your heating and electricity bill?: Yes Do you have trouble taking care of your child, family member or friend?: No Do you have trouble with day-to-day activities such as bathing, preparing meals, shopping, managing finances, etc.?: No Are you currently unemployed and looking for a job?: Yes Are you interested in more education?: Yes Currently or been in a relationship where the following occur: I choose not to answer THRIVE Score: 2 AUDIT C Alcohol Use Questionnaire (AUDIT-C) 1. How often do you have a drink containing alcohol?: Never 3. How often do you have six or more drinks on one occasion?: Never Total Score: 0 SHAWNEE-7 AMB Questionnaire SHAWNEE-7 Date SHAWNEE - 7 assessed: 07/31/24 Feeling nervous, anxious, or on edge: 1 = Several days Not being able to stop or control worryin = More than half the days Worrying too much about different things: 0 = Not at all Trouble relaxin = Several days Being so restless that it is hard to sit still: 0 = Not at all Becoming easily annoyed or irritable: 0 = Not at all Feeling afraid as if something awful might happen: 0 = Not at all Total SHAWNEE-7 score (0-4 normal; 5-9 mild; 10-14 moderate; 15-21 severe): 4 Source: Developed by Drs. Remy Castanon, Tabby Scott, Robert Reynolds and colleagues, with an educational fe from [employer]. Physical exam (Primary Care) Vital Signs: Last Vital Signs Temp 98.1 F 07/31/24 10:26 Pulse 71 07/31/24 10:26 BP 130/68 07/31/24 10:26 Pulse Ox 98 07/31/24 10:26 Oxygen Delivery Method Room Air 07/31/24 10:26 BMI result Body Mass Index 29.9 Tobacco/Smoking Status: Tobacco use Status Tobacco use date assessed 07/31/24 07/31/24 10:29 Patient Tobacco Use Status Never used Tobacco 07/31/24 10:16 e-Cigarette/Vaping Use Never Used 07/31/24 10:16 PHQ-9: PHQ-9 Score PHQ-9: Total score 1 07/31/24 10:29 Depression Screening Interpretation: Negative Thrive Assessment: Date of Thrive Assessment Date Thrive assessed 07/31/24 07/31/24 10:29 Currently or been in a relationship where the following occur: I choose not to answer Results AMB Hemoglobin A1c AMB Hemoglobin A1c 6.8 % Last Edit by Mike López CMA on 07/31/24 10:37 Results Reviewed Results Reviewed: Laboratory Last Values Hgb A1c (Clinic) 6.8 % (4.0-6.0) H 07/31/24 10:35 Coding Level of Care Code Est Pt Level 3 (56201) Diagnoses Serum calcium elevated E83.52 Vitamin D deficiency E55.9 Postmenopausal Z78.0 Diabetes E11.9 Additional Codes PHQ-9 - 21441 - PHQ-9 Billing: Yes ([id number]) Assessment & Plan Assessment & Plan (1) Serum calcium elevated: Code(s): E83.52 - Hypercalcemia Category: Medical (2) Vitamin D deficiency: Code(s): E55.9 - Vitamin D deficiency, unspecified Category: Medical (3) Postmenopausal: Code(s): Z78.0 - Asymptomatic menopausal state Category: Medical (4) Diabetes: Code(s): E11.9 - Type 2 diabetes mellitus without complications Category: Medical Plan . Orders: Orders Calcium, Ionized Today E83.52 - Hypercalcemia Parathyroid Hormone Intact Today E83.52 - Hypercalcemia XR DEXA axial skeleton 3 Months E55.9 - Vitamin D deficiency, unspecified, Z78.0 - Asymptomatic menopausal state AMB Hemoglobin A1c Today Z13.9 - Encounter for screening, unspecified
[2024-07-31 10:26] VITALS: BP 130/68; PULSE 71; TEMP 36.7; O2SAT 98; BMI 29.9
--- OUTSIDE RECORDS SUMMARY | 2024-07-31 11:20 | XMS_ITS | Patient Health Record ---
Author Organization [facility] Address [address] [place] [address] Care Team Providers Care Offshore Wind Turbine Technician Name Role Phone Robbi MAYER, Kymberly Ziegler Primary Care Provider Un available Neal Clayton Unavailable [phone] Allergies Allergen (clinical drug ingredient) Drug/Non Drug [...] disorder associated with type II diabetes mellitus (364065248) Diabetic - NIDDM/Neuropathy (250.60) Active confirmed Problem Hammer toe (196265288) Hammer toe (735.4) Active confirmed Problem Onychomycosis (848510811) Onychomycosis (110.1) Active confirmed Problem Pain in limb (72046389) Pain in Limb (729.5) Active confirmed Plan Of Treatment Pending Test Test Name Order Date [id number] NAIL, 6 OR MORE 08/15/2012 [id number] SKIN LESIONS, 2 TO 4 08/16/19 13 Insurance Providers Payer Name Payer Address Payer Phone Subscriber Number Group Number Insured Name Patient Relationship to Insured Coverage Start Date Coverage End Date Medicare National Govt Svcs Inc [address] [place] [address] [id number] Kylah Lewis Self - patient is the insured 5 Medical (General) History Medical History History ICD Code Arthritis diabetes mellitus high blood pressure cholesterol Surgical History Surgery Date(Month/Year) appendectomy tubal surgery
== END 2024-07-31 10:48 | disposition home or self-care (01) ==
LOC: HO.HMCC 10:12
PROVIDERS: PCP Nurse Practitioner Family; Visit Provider Nurse Practitioner Family
DX: E11.9 Type 2 diabetes mellitus without complications (principal); E55.9 Vitamin D deficiency, unspecified; Z78.0 Asymptomatic menopausal state

== ENCOUNTER 2024-08-16 10:54 | Outpatient (AMB) | payer MEDICARE, SELFPAY ==
--- NOTE | 2024-08-16 11:00 | A.OFFVIS_ITS ---
Vital Signs 08/16/24 11:02 Height 5 ft 3 in Weight 170 lb 13.732 oz BMI 30.3 BP 92/48 L Blood Pressure Location Rt brachial Position Sitting Pulse 76 Pulse Source Pulse Oximeter Pulse Oximetry (%) 96 Oxygen Delivery Method Room Air Intake Visit Reasons: Hypercalcemia Intake Note: New patient patient internally referred by PCP for Hypercalcemia. Fire Extinguisher Technician Required: No Accompanied by: Self / Same As Patient Allergies Penicillins (PENICILLINS) Allergy (Unknown, Verified 08/16/24 11:05) UNKNOWN canagliflozin (Invokana) Adverse Reaction (Unknown, Verified 08/16/24 11:05) unknown statins Allergy (Unknown, Uncoded 08/16/24 11:05) muscle aches Medication List - Last Reconciled 08/16/24 by Remy Beckwith MD albuterol sulfate 90 mcg/actuation (Ventolin HFA) 1 inh inhalation QID PRN aspirin 81 mg PO DAILY [id number] 5 mg-5 mg-37.5 mg-25 mg-1 mg 1 capsule orally; daily 60 days cetirizine 10 mg PO DAILY PRN cyclobenzaprine 10 mg PO TID PRN empagliflozin (Jardiance) 5 mg (1/2 x 10 mg) PO DAILY ezetimibe 10 mg PO DAILY 90 days fluticasone propionate 50 mcg/actuation 1 spray intranasal DAILY hydrocortisone 2.5% 1 appl [place] BID PRN 14 days inhalational spacing device (BreatheRite MDI Spacer) As directed with metered dose inhaler device lancets As directed tree times a day losartan 50 mg PO DAILY 90 days magnesium oxide 400 mg PO DAILY 60 days naproxen 500 mg PO Q12H PRN ondansetron 4 mg PO Q6H PRN OneTouch Verio test strips (blood sugar diagnostic) 3 times a day NS pioglitazone 45 mg PO DAILY sitagliptin phos-metformin 50-1,000 mg ER 1 tab PO BID 90 days vitamin B complex 1 tab PO DAILY 30 days HPI Comments Details: The patient is a 74-year-old female presenting with elevated calcium levels. This was first noted a couple of months ago during routine testing. The patient denies any previous history of hypercalcemia or related symptoms. The patient does not take calcium supplements or hydrochlorothiazide, which could contribute to elevated calcium levels. She does take vitamin D daily, although the dosage is unknown. There is no history of kidney stones or osteoporosis, although her mother had kidney stones. First noted to have high calcium couple of mos a go . Not Currently using Calcium supplement . Takes IU of Vitamin D daily. Currently not using HCTZ. Kidney stones: N Osteoporosis: N she had a normal DEXA about 2 years ago History of Elaine use: N Biotin use: N Family history of high calcium or kidney stones: Mom had kidney stones Renal imaging: [] DXA: Labs: [facility] Medical History Elevated hemidiaphragm Immunization refused Diabetes type 2, controlled Overweight (BMI 25.0-29.9) Dyslipidemia Essential hypertension Type 2 diabetes mellitus with unspecified complications Surgical History Hx of tubal ligation History of appendectomy Family History Father Heart disease Mother Heart disease Sister Breast cancer Social History Housing: Other Alcohol intake: never Patient Tobacco Use Status: Never used Tobacco e-Cigarette/Vaping Use: Never Used Second Hand Smoke Exposure: No service: No Current occupational status: employed 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 There are no thyroid nodules palpated. There is a absence of any skin lesions Assessment & Plan Assessment & Plan (1) Serum calcium elevated: Code(s): E83.52 - Hypercalcemia Category: Medical Plan: 74-year-old black female with a history of mild hypercalcemia. Possible etiologies include mild primary hyperparathyroidism vs laboratory error The plan is to repeat the calcium, albumin, PTH at [facility] ( [facility]) . If results are consistent with primary hyperparathyroidism would do further workup determine whether surgical exploration is necessary 1. Hypercalcemia The patient presents with elevated calcium levels, first noted a few months ago. There is no history of calcium supplementation or medications like hydrochlorothiazide that could contribute to this finding. The plan is to rec heck calcium and parathyroid hormone levels at a [facility] facility to confirm the diagnosis. If levels remain elevated, further evaluation for primary hyperparathyroidism will be considered, including potential imaging studies and surgical consultation if necessary. I explained to the patient that her elevated calcium levels could be due to primary hyperparathyroidism, which involves overactivity of the parathyroid glands. We discussed the importance of confirming the diagnosis with repeat calcium and parathyroid hormone tests at a reliable lab. I reassured her that most cases do not require immediate intervention, especially given her normal bone density and lack of kidney stones. We also talked about the possibility of surgical intervention if the diagnosis is confirmed and symptoms or c omplications arise. I advised her to follow up in a few months after the lab results are available to determine the next steps. - Schedule a lab appointment at [facility] to recheck calcium and parathyroid hormone levels. - Monitor for any new symptoms such as bone pain or kidney stones and report them to your doctor. - Follow up in three to four months to review lab results and discuss further management if necessary. The patient had an opportunity to ask questions regarding treatment plan. The patient expressed understanding and agreement with the above treatment plan. Patient was informed and verbally consented to the use of an ambient scribe for clinic note documentation during this visit. Orders: Orders 2 Calcium Today E83.52 - Hypercalcemia Albumin Level Today E83.52 - Hypercalcemia Parathyroid Hormone Intact Today E83.52 - Hypercalcemia Coding Level of Care Code New Pt Level 4 (40990) Diagnoses Serum calcium elevated E83.52
[2024-08-16 11:02] VITALS: BP 92/48; PULSE 76; O2SAT 96; BMI 30.3
--- OUTSIDE RECORDS SUMMARY | 2024-08-16 11:38 | XMS_ITS | Patient Health Record ---
[facility] Address [address] [place] [address] Care Team Providers Care English As A Second Language Teacher Name Role Phone Robbi MAYER, Kymberly Ziegler Primary Care Provider Un available Neal Clayton Unavailable [phone] Allergies Allergen (clinical drug ingredient) Drug/Non Drug Allergy documented on EMR Reaction Allergy Type Onset Date Status Penicillin itchy Drug Allergy Active Reason For Referral No Information Medications Medication SIG (Take, Route, Frequency, Duration) Notes Start Date End Date Status Simvastatin 10 MG 1 tablet in the even ing Orally Once a day; Duration: 30 day(s) Active Aspirin 81 MG 1 tablet Orally Once a day; Duration: 30 day(s) Active Extra-Depth Diabetic Shoes with 3 Pair Custom heat-molded multi-density innersoles . 1pair shoes/3sets inserts . .; Duration: 1 year 08/15/2012 Active Losartan Potassium 50 MG 1 tablet Orally Once a day; Duration: 30 day(s) Active metFORMIN HCl 1000 MG 1 tablet with meal s Orally Twice a day; Duration: 30 day(s) Active glyBURIDE 5 MG 2 tablets Orally twi ce a day; Duration: 30 day(s) Active Janumet 50-1000 MG 1 tablet with meals Orally once a day; Duration: 30 day(s) Active Problems Problem Type SNOMED Code ICD Code Onset Dates Problem Status W/U Status Risk Notes Problem Neurologic disorder associated with type II diabetes mellitus (511437597) Diabetic - NIDDM/Neuropathy (250.60) Active confirmed Problem Hammer toe (729918409) Hammer toe (735.4) Active confirmed Problem Onychomycosis (985240268) Onychomycosis (110.1) Active confirmed Problem Pain in limb (32420033) Pain in Limb (729.5) Active confirmed Plan Of Treatment Pending Test Test Name Order Date [id number] NAIL, 6 OR MORE 08/15/2012 [id number] SKIN LESIONS, 2 TO 4 08/16/19 13 Insurance Providers Payer Name Payer Address Payer Phone Subscriber Number Group Number Insured Name Patient Relationship to Insured Coverage Start Date Coverage End Date Medicare National Govt Sv[employer] [address] [place] [address] [id number] Kylah Lewis Self - patient is the insured 5 Medical (General) History Medical History History ICD Code Arthritis diabetes mellitus high blood pressure cholesterol Surgical History Surgery Date(Month/Year) appendectomy tubal surgery
== END 2024-08-16 11:42 | disposition home or self-care (01) ==
LOC: HO.ENCR 10:55
PROVIDERS: PCP Nurse Practitioner Family; Visit Provider Internal Medicine Endocrinology, Diabetes & Metabolism
DX: E83.52 Hypercalcemia (principal)
CPT/HCPCS: 99204

== ENCOUNTER → 2024-08-16 10:54 | Outpatient (BNVA) | payer MEDICARE, SELFPAY | PROVIDERS: PCP Nurse Practitioner Family; Visit Provider Internal Medicine Endocrinology, Diabetes & Metabolism | DX: E83.52 Hypercalcemia (principal) | CPT/HCPCS: 99202 ==

== ENCOUNTER 2024-08-24 09:59 | Outpatient (RCR) | payer MEDICARE, SELFPAY ==
--- NOTE | 2024-07-20 10:58 | MHC.OT.EP ---
[address] [phone] Occupational Therapy Plan of Care Patient Name: Kylah Lewis Date of Evaluation: 07/20/24 Diagnosis: Right trigger thumb Pain Location: Pain in right thumb dorsal thumb at MCP joint Current: 5/10 Worst: 8/10 Pain Score: 5 Aggravating Factors: Lifting, grasping Alleviating Factors: Brace, pain medication Assessment: Pt is a 74 y/o female referred to OT with right trigger thumb. Pt reports one year history of worsening right thumb pain, stiffness, and triggering of the first digit. Surgery was recommended, although pt wishes to trail therapy first. She has been compliant with comfort cool thumb brace, although continues to experience sharp shooting pain from the IP to MCP joint and demonstrates limited active IP flexion. Quick DASH score 36.4% indicating moderate functional limitations. Pt. would benefit from skilled OT tx for activity modification/joint protection education, pain management and spiritism of function. Frequency and Duration: The patient will be seen 2x/wk for 6 weeks Short Term Goals: Decrease right thumb pain <3/10 Improve thumb IP flexion by 10 degrees IND with thermal modalities for pain management IND with joint protection and activity modification Rn Intake Goals: Pain free with functional hand use Improve thumb IP joint ROM WNL's Quick DASH <20% to increase ease with daily tasks IND with HEP Treatment Plan: Therapeutic Exercise Therapeutic Activity Home Exercise Program Splinting Patient Education Ultrasound Paraffin MHP Joint Mobilization Soft Tissue Mobilization Electronically Signed By: Rosemarie Fine MS OTR/L Please Sign and return to therapist. Thank you once again for your referral.
== END 2024-08-24 12:56 | disposition home or self-care (01) ==
LOC: HO.OTS 09:59
PROVIDERS: Absent Provider Physician Assistant Medical; Visit Provider Physician Assistant Medical
DX: M25.541 Pain in joints of right hand (principal); M65.311 Trigger thumb, right thumb
CPT/HCPCS: 97035; 97110; 97165

== ENCOUNTER 2024-08-31 10:19 | Outpatient (AMB) | payer MEDICARE, SELFPAY ==
[2024-08-31 10:24] VITALS: BP 120/66; PULSE 67; O2SAT 97
--- NOTE | 2024-08-31 10:24 | A.OFFVIS_ITS ---
Vital Signs 08/31/24 10:24 Height 5 ft 3 in Weight 169 lb 8 oz BMI 30.0 BP 120/66 Blood Pressure Location Lt brachial Position Sitting Pulse 67 Pulse Source Pulse Oximeter Pulse Oximetry (%) 97 Oxygen Delivery Method Room Air Intake Visit Reasons: 6mon follow-up Intake Note: Patient presents follow up sleep. X-ray in chart. Compliance in chart(82-90days, >=4hrs- 86%, Average usage-5hrs 41 min, Med pressure-7.7, Med leaks-12.1, AHI- 6.2). Accompanied by: Self / Same As Patient Allergies Penicillins (PENICILLINS) Allergy (Unknown, Verified 08/31/24 10:28) UNKNOWN canagliflozin (Invokana) Adverse Reaction (Unknown, Verified 08/31/24 10:28) unknown statins Allergy (Unknown, Uncoded 08/16/24 11:05) muscle aches HPI Comments Details: 74 y/o female comes for follow up for DARRELL. HST c/w 05/2023- AHI 9 and O2 elizabet 74%, Auto-pap [id number], Reviewed Labs 07/2024 with patient today. She received a new machine as the older one was overheating. She is sleeping better with CPAP use daily, and cleans her nose pillows, tubing daily. She changes the filters and water as needed. She goes to bed at 11pm sleeps through the night, she gets up 3-4 times a night to drink water, she feels very thirsty and has urge incontinence, and frequency. She notices it is worse as she enters her home and puts the lópez into the front door. Denies stress incontinence, and manages her fluids/ caffeine intake. Denies pain and or constipation The pressures are good for her, sometimes they blow forcefully and she knows how to adjust it. She needs cpap liners due to the leaks, and will f/u with regional home care. She has RLS symptoms her r. hand fingers feel numb, l. hand seldomly will feel numb and hands bilaterally will cramp. Her lower extremities feel numbness, tingling and burning. They feel swollen on the soles of the feet, at 2-3 am she will wake up am, and stretch, then uses bengay or tiger balm. Her mood is irritable when she can not get sufficient amount of sleep. Denies morning headaches denies. Her diet is stable. STM memory is poor, she plays her puzzles on line, and games. She goes to see her grand-daughter, drives her to work and back home. She is looking for work b/c she gets bored at home. 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, 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 Gender identity: Female Cognitive needs: No Hearing needs: No Vision needs: Yes Female Reproductive History Menstrual Age of Menarche: 17 Review of Systems ENT Reports Normal hearing present Neuro Reports Normal hearing present Physical Exam Vital Signs: Last Vital Signs Pulse 67 08/31/24 10:24 BP 120/66 08/31/24 10:24 Pulse Ox 97 08/31/24 10:24 Oxygen Delivery Method Room Air 08/31/24 10:24 BMI result Body Mass Index 30.0 Const General: cooperative and comfortable Orientation/consciousness: patient oriented x3 Eyes Pupils: Equal, round and reactive pupils present Resp Effort & Inspection: normal respiratory effort and able to speak in complete sentences Neuro General: patient oriented x3 and moves all extremities Cranial nerves: Yes CN's II-XII intact bilaterally, Yes Facial sensation intact/muscles of mastication intact, Yes Equal, round and reactive pupils present, Yes Normal accommodation reflex present, Yes Bilaterally intact EOM present, Yes Nystagmus not present, Yes Normal facial strength present, Yes Midline tongue present, Yes Normal hearing present, Yes Ability to bilaterally rotate head present, Yes Ability to bilaterally elevate shoulders present and Yes Other cranial nerve findings present ([place] L[place]side) Cognition (Neuro): normal cognition Motor exam (neuro): 5/5 motor strength present throughout, Pronator motor function not present, no tremor noted and Normal motor muscle tone present throughout Psych Appearance: grossly normal Affect: normal affect Attitude: cooperative Thought process: Normal thought process present Thought content: Normal thought content present Results Reviewed Results Reviewed: FINDINGS: XRay There is mild loss of first MCP joint space with periarticular spurring. Minimal loss of PIP and DIP joint spaces seen as well with mild periarticular spurring the DIP joints. No visible fracture, dislocation or subluxation. No juxta-articular osteoporosis. The soft tissues are normal. No visible fracture. XR/XR hand RT min 3V IMPRESSION: Degenerative osteoporotic changes first MCP jint, PIP and DIP joints. There is no visible acute fracture or dislocation. DARRELL compliance Report 05/2024- 08/2024 total use 82/90 days and >4 hours avg 5 hours and 41 min APAP [id number] Med Press 7.7 Med Leaks are 12.1 and AHI is 6.2/hr Labs 07/2024 reviewed with patient fasting glucose and A1c elevated. Assessment & Plan Assessment & Plan (1) DARRELL on CPAP: Code(s): G47.33 - Obstructive sleep apnea (adult) (pediatric) Category: Medical (2) RLS (restless legs syndrome): Comment: She monitors sugars and controls her A1c twice a day and using bernadine and cinnamon water. Code(s): G25.81 - Restless legs syndrome Category: Medical (3) Pain in thumb joint with movement of right hand: Comment: xray reviewed with patient today. Code(s): M25.541 - Pain in joints of right hand Category: Medical (4) Nocturnal leg cramps: Comment: will start her on Lyrica Code(s): G47.62 - Sleep related leg cramps Category: Medical Plan DARRELL continue cpap use as patient feels refreshed sleep with cpap use. Patient Education: continue use of CPAP as patient has elevated Blood sugars, and hypertension, #1 modifiable risk factor for CV events is good blood pressure control. Memory STM is poor, continue to engage in social activities and play games or do puzzles daily. Walk if and as tolerable or swim. Mood fluctuations monitor diet and good A1c control. RLS start lyrica 25mg po bedtime daily. Magnesium 400 mg po at bedtime, B- vitamins as prescribed once daily. Medications: New pregabalin take one capsule daily at bedtime for Restless legs. 25 mg PO BEDTIME 90 caps 3RF restless legs 90 days MDD 25mg G25.81 - Restless legs syndrome Patient Instructions: Sleep Hygiene provided: set a scheduled bedtime and wake time to help regulate the circadian rhythm and balance the release of pituitary hormones. Sleep in a dark room, temperatures below 68 degrees, and no devices n bed. Limit caffeinated products 6 hours prior to bed, and limit fluids 2-4 hours prior to bed. Gentle night yoga, diffusing essential oils, and playing soft music can be relaxing. Monitor A1c levels and blood sugars. Coding Level of Care Code Est Pt Level 4 (56870) Diagnoses DARRELL on CPAP G47.33 RLS (restless legs syndrome) G25.81 Pain in thumb joint with movement of right hand M25.541 Nocturnal leg cramps G47.62 Time Spent (min) 20 Comment improving
--- OUTSIDE RECORDS SUMMARY | 2024-08-31 10:50 | XMS_ITS | Continuity of Care Document ---
Author Organization [facility] [address] [place] [address] Phone [phone] Care Team Providers Care Assistant Professor Of Art Name Role Phone Jacob Martinez Care Team Information Multiple Slide Operator + [phone] Problems Active Problems Provider Date Type 2 diabetes mellitus JUAN Walker Onse t: 03/29/2023 Dyslipidemia JUAN Walker Onset: 2023 Essential hypertension JUAN Walker Onset: 03/29/2023 Benign neoplasm of adrenal gland JUAN Walker Onset: 03/29/2023 Social History Type Date Description Comments Sex Female Sex Unknown Tobacco Use Start: Unknown Never Smoked Cigarettes ETOH Use Never used alcohol Allergies and adverse reactions Active Allergies Criticality Reaction Severity Comments Date Penicillin Unable to assess criticality 03/29/2023 Invokana Unable to assess criticality 03/29/2023 Statins Unable to assess criticality 03/29/2023 Medications Active Medications SIG Qnty Indications Ordering Provider Date Nyyctotpidnos7ns Tablets 1 tablet by mouth at 11 pm 1tabs Damien Howe M.D. 03/29/2023 [id number] Capsules Take 2 Capsules By Mouth AT Bedtime For 30 Days Jacob Martinez Prybypumy85zc Tablets Take 1 Tablet By Mouth Daily Jacob Martinez Losartan Kgkvjyebr35ad Tablets Take 1 Tablet By Mouth Daily Jacob Martinez Janumet [id number] Tablets ER 24HR Take 1 Tablet By Mouth Twice Daily Jacob Martinez Jgzjfdikwik873ei Capsules Take 1 Capsule By Mouth Three Times Daily Vin Luna Pioglitazone [id number] Tablets Take 1 Tablet By Mouth Daily Jacob Martinez Fluticasone Rhwtlssvsg73gyy/Act Suspension Shake Liquid And Use 1 [place] In Each Nostril Daily Jacob Martinez Vital Signs Date Vital Result Comment 03/29/2023 10:53am BP Systolic 110 mmHg BP Diastolic 60 mmHg Heart Rate 75 /min Height 62 inches 5'2 Weight 174.25 lb BMI (Body Mass Index) 31.9 kg/m2 Results Test Acquired Date Facility Test Result H/L Range Note Renin, Plasma Activity 04/14/2023 [facility] Renin, Plasma Activity 4.063 1 TSH 04/02/2023 [facility] TSH 0.59 uIU/mL (0.4-4.2 ) Free T4 04/02/2023 [facility] Free T4 1.14 ng/dL (0.70-1. 80) Anti Thyroid Peroxidase AB 04/02/2023 [facility] Anti Thyroid Peroxidase AB <9.0 IU/mL (<34) 2 Renin, Plasma Activity 04/02/2023 [facility] Renin, Plasma Activity Test not perform <SEE NOTE> 3 Aldosterone 04/02/2023 [facility] Aldosterone 4.6 4 Fract Plasma Metanephrines 04/02/2023 [facility] Plasma Normetanephrines 111.2 5 Plasma Metanephrines <25.0 6 Cortisol 04/02/2023 [facility] Cortisol 1.2 g/dL 7 1 Reference range: 0.1 67 to 5.380 Unit: ng/mL/hr (NOTE) This test was developed and its performance characteristics determined by [facility]. It has not been cleared or approved by the Food and Drug Administration. Test performed at [address] [address] The results are assa y dependent [...] developed and its performance characteristics determined by [facility]. It has not been cleared or approved by the Food and Drug Administration. Test performed at [address] [address] CORRECTED ON AT 1506: PREVIOUSLY REPORTED 4.4 Reference range: 0.0 to 30.0 Unit: ng/dL 5 Reference range: 0.0 to 285.2 Unit: pg/mL (NOTE) This test was developed and its performance characteristics determined by [facility]. It has not been cleared or approved by the Food and Drug Administration. 6 Reference range: 0.0 to 88.0 Unit: pg/mL (NOTE) This test was developed and its performance characteristics determined by [facility]. It has not been cleared or approved by the Food and Drug Administration. 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
--- OUTSIDE RECORDS SUMMARY | 2024-08-31 10:50 | XMS_ITS | Patient Health Record ---
[facility] Address [address] [place] [address] Care Team Providers Care Assessment Director Name Role Phone Robbi MAYER, Kymberly Ziegler Primary Care Provider Un available Neal Clayton Unavailable [phone] Allergies Allergen (clinical drug ingredient) Drug/Non Drug [...] disorder associated with type II diabetes mellitus (815224946) Diabetic - NIDDM/Neuropathy (250.60) Active confirmed Problem Hammer toe (788735040) Hammer toe (735.4) Active confirmed Problem Onychomycosis (180975379) Onychomycosis (110.1) Active confirmed Problem Pain in limb (78678793) Pain in Limb (729.5) Active confirmed Plan Of Treatment Pending Test Test Name Order Date [id number] NAIL, 6 OR MORE 08/15/2012 [id number] SKIN LESIONS, 2 TO 4 08/16/19 13 Insurance Providers Payer Name Payer Address Payer Phone Subscriber Number Group Number Insured Name Patient Relationship to Insured Coverage Start Date Coverage End Date Medicare National Govt Svcs Inc [address] [place] [address] [id number] Kylah Lewis Self - patient is the insured 5 Medical (General) History Medical History History ICD Code Arthritis diabetes mellitus high blood pressure cholesterol Surgical History Surgery Date(Month/Year) appendectomy tubal surgery
== END 2024-08-31 11:52 | disposition home or self-care (01) ==
LOC: HO.HSMS 10:20
PROVIDERS: PCP Nurse Practitioner Family; Visit Provider Physician Assistant Medical
DX: G47.33 Obstructive sleep apnea (adult) (pediatric) (principal); G25.81 Restless legs syndrome; M25.541 Pain in joints of right hand; G47.62 Sleep related leg cramps
CPT/HCPCS: 99214

== ENCOUNTER → 2024-08-31 10:19 | Outpatient (BNVA) | payer MEDICARE, SELFPAY | PROVIDERS: PCP Nurse Practitioner Family; Visit Provider Physician Assistant Medical | DX: G47.33 Obstructive sleep apnea (adult) (pediatric) (principal); G25.81 Restless legs syndrome; G47.62 Sleep related leg cramps; M25.541 Pain in joints of right hand | CPT/HCPCS: 99212 ==

== ENCOUNTER 2024-10-26 12:31 | Outpatient (AMB) | payer MEDICARE, SELFPAY ==
[2024-10-26 12:35] VITALS: BP 110/60; PULSE 76; TEMP 36.7; O2SAT 98
--- NOTE | 2024-10-26 12:35 | AM.OFFWIN_ITS ---
Intake Vital Signs 10/26/24 12:35 Height 5 ft 3 in BMI Reason not done Patient refused/unable BP 110/60 Blood Pressure Location Lt brachial Position Sitting Pulse 76 Pulse Source Pulse Oximeter Temp 98.1 F Temp Source Oral Pulse Oximetry (%) 98 Oxygen Delivery Method Room Air Intake Visit Reasons: EP-low bp 98, headaches Patient Tobacco Use Status: Never used Tobacco Allergies Penicillins (PENICILLINS) Allergy (Unknown, Verified 10/26/24 12:36) UNKNOWN canagliflozin (Invokana) Adverse Reaction (Unknown, Verified 10/26/24 12:36) unknown statins Allergy (Unknown, Uncoded 08/16/24 11:05) muscle aches Do you need a note to return to daycare/school/sports/work: No HPI HPI Comments History of Present Illness Details 74 y/o Female patient who presents to [facility] with c/o Low Blood Pressure readings at home associated with Headaches. Reports that for the past 2 days, she has been having headaches, prompting her to check her BPs at home frequently during the daytime. Reports BP readings ranging from Systolic 90's and Dystolic 40's. She does not keep a Log and checks BP randomly during the daytime. She does take Losartan 50 mg daily for Hypertension and she has been on this medication for years now. She does have DARRELL and wears CPAP Mask at night time. Reports Hydrating well - drinks 4-5 bottles of water daily. [facility] Medical History (Updated 10/26/24 @ 13:09 by Prema Castaneda NP) Generalized headaches Nonspecific low blood pressure reading Diabetic retinopathy Elevated hemidiaphragm Immunization refused Diabetes type 2, controlled Overweight (BMI 25.0-29.9) Dyslipidemia Essential hypertension Type 2 diabetes mellitus with unspecified complications Surgical History Hx of tubal ligation History of appendectomy Family History Father Heart disease Mother Heart disease Sister Breast cancer Social History Housing: Other Alcohol intake: never Patient Tobacco Use Status: Never used Tobacco e-Cigarette/Vaping Use: Never Used Second Hand Smoke Exposure: No service: No Current occupational status: employed 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, 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 Gender identity: Female Cognitive needs: No Hearing needs: No Vision needs: Yes Female Reproductive History Menstrual Age of Menarche: 17 Review of Systems Const All systems reviewed & are unremarkable except as noted in HPI and below Physical Exam Vital Signs: Last Vital Signs Temp 98.1 F 10/26/24 12:35 Pulse 76 10/26/24 12:35 BP 110/60 10/26/24 12:35 Pulse Ox 98 10/26/24 12:35 Oxygen Delivery Method Room Air 10/26/24 12:35 Const General: no acute distress Nutritional Appearance: overweight Orientation/consciousness: patient oriented x3 Resp Effort & Inspection: normal respiratory effort Auscultation: clear to auscultation bilaterally Cardio Heart sounds: S1 normal heart sound present and S2 normal heart sound present Neuro General: patient oriented x3, gait normal and moves all extremities Psych Speech and movement: Normal speech and movement present Assessment & Plan Assessment & Plan (1) Nonspecific low blood pressure reading: Code(s): R03.1 - Nonspecific low blood-pressure reading Plan: Hold Losartan for now - continue to check BPs at home and keep Log. If BP readings are > 140's/90's resume Losartan. Continue with plenty of hydration with water. F/U with PCP (2) Generalized headaches: Code(s): R51.9 - Headache, unspecified Plan: Acetaminophen for pain relief. Hydrate well with water. Get some rest Avoid stress as much as possible. Use C-PAP as instructed. Coding Level of Care Code Est Pt Level 4 (10097) Diagnoses Nonspecific low blood pressure reading R03.1 Generalized headaches R51.9 Time Spent (min) 20
--- OUTSIDE RECORDS SUMMARY | 2024-10-26 16:45 | XMS_ITS | Continuity of Care Document ---
Author Organization [facility] [address] [place] [address] Phone [phone] Care Team Providers Care Events Intern Name Role Phone Jacob Martinez Care Team Information Bilingual Sales Representative + [phone] Problems Active Problems Provider Date Type 2 [...] Medications SIG Qnty Indications Ordering Provider Date Usvdkhihhhelx0uf Tablets 1 tablet by mouth at 11 pm 1tabs Damien Howe M.D. 03/29/2023 [id number] Capsules Take 2 Capsules By Mouth AT Bedtime For 30 Days Jacob Martinez Tovjheylz24tr Tablets Take 1 Tablet By Mouth Daily Jacob Martinez Losartan Sbcgmbrzs68tz Tablets Take 1 Tablet By Mouth Daily Jacob Martinez Janumet [id number] Tablets ER 24HR Take 1 Tablet By Mouth Twice Daily Jacob Martinez Fxtxuywyqln543ql Capsules Take 1 Capsule By Mouth Three Times Daily Vin Luna Pioglitazone NES25ah Tablets Take 1 Tablet By Mouth Daily Jacob Martinez Fluticasone Tlbebegeor02hfy/Act Suspension Shake Liquid And Use 1 [place] In Each Nostril Daily Jacob Martinez Vital Signs Date Vital Result Comment 03/29/2023 10:53am BP Systolic 110 mmHg BP Diastolic 60 mmHg Heart Rate 75 /min Height 62 inches 5'2 Weight 174.25 lb BMI (Body Mass Index) 31.9 kg/m2 Results Test Acquired Date Facility Test Result H/L Range Note Renin, Plasma Activity 04/14/2023 [facility] Renin, Plasma Activity 4.063 1 TSH 04/02/2023 [facility] TSH 0.59 uIU/mL (0.4-4.2 ) Free T4 04/02/2023 [facility] Free T4 1.14 ng/dL (0.70-1. 80) Anti Thyroid Peroxidase AB 04/02/2023 [facility] Anti Thyroid Peroxidase AB <9.0 IU/mL (<34) 2 Renin, Plasma Activity 04/02/2023 [facility] Renin, Plasma Activity Test not perform <SEE NOTE> 3 Aldosterone 04/02/2023 [facility] Aldosterone 4.6 4 Fract Plasma Metanephrines 04/02/2023 [facility] Plasma Normetanephrines 111.2 5 Plasma Metanephrines <25.0 6 Cortisol 04/02/2023 [facility] Cortisol 1.2 g/dL 7 1 Reference range: 0.1 67 to 5.380 Unit: ng/mL/hr (NOTE) This test was developed and its performance characteristics determined by [facility]. It has not been cleared or approved by the Food and Drug Administration. Test performed at [address] [address] The results are assa y dependent [...] developed and its performance characteristics determined by [facility]. It has not been cleared or approved by the Food and Drug Administration. Test performed at [address] [address] CORRECTED ON AT 1506: PREVIOUSLY REPORTED 4.4 Reference range: 0.0 to 30.0 Unit: ng/dL 5 Reference range: 0.0 to 285.2 Unit: pg/mL (NOTE) This test was developed and its performance characteristics determined by [facility]. It has not been cleared or approved by the Food and Drug Administration. 6 Reference range: 0.0 to 88.0 Unit: pg/mL (NOTE) This test was developed and its performance characteristics determined by [facility]. It has not been cleared or approved by the Food and Drug Administration. Test performed at [address] [address] 7 Reference Range: 6-10 am: 6.0-18.4 ug/dL [...]
--- OUTSIDE RECORDS SUMMARY | 2024-10-26 16:45 | XMS_ITS | Patient Health Record ---
Author [facility] Address [address] [place] [address] Care Team Providers Care Bonding Supervisor Name Role Phone Robbi MAYER, Kymberly Ziegler Primary Care Provider Un available Neal Clayton Unavailable [phone] Allergies Allergen (clinical drug ingredient) Drug/Non Drug [...] disorder associated with type II diabetes mellitus (437280764) Diabetic - NIDDM/Neuropathy (250.60) Active confirmed Problem Hammer toe (755076219) Hammer toe (735.4) Active confirmed Problem Onychomycosis (153382195) Onychomycosis (110.1) Active confirmed Problem Pain in limb (07466783) Pain in Limb (729.5) Active confirmed Plan Of Treatment Pending Test Test Name Order Date [id number] NAIL, 6 OR MORE 08/15/2012 [id number] SKIN LESIONS, 2 TO 4 08/16/19 13 Insurance Providers Payer Name Payer Address Payer Phone Subscriber Number Group Number Insured Name Patient Relationship to Insured Coverage Start Date Coverage End Date Medicare National Govt Svcs Inc [address] [place] [address] [id number] Kylah Lewis Self - patient is the insured 5 Medical (General) History Medical History History ICD Code Arthritis diabetes mellitus high blood pressure cholesterol Surgical History Surgery Date(Month/Year) appendectomy tubal surgery
== END 2024-10-26 13:22 | disposition home or self-care (01) ==
PROVIDERS: PCP Nurse Practitioner Family; Visit Provider Nurse Practitioner Family
DX: R03.1 Nonspecific low blood-pressure reading (principal); R51.9 Headache, unspecified

== ENCOUNTER → 2024-10-26 12:31 | Outpatient (BNVA) | payer MEDICARE, SELFPAY | PROVIDERS: PCP Nurse Practitioner Family; Visit Provider Nurse Practitioner Family | DX: G47.33 Obstructive sleep apnea (adult) (pediatric) (principal); R51.9 Headache, unspecified; R03.1 Nonspecific low blood-pressure reading; Z99.89 Dependence on other enabling machines and devices; Z79.899 Other long term (current) drug therapy | CPT/HCPCS: 99212 ==

== ENCOUNTER 2024-12-05 08:56 | Outpatient (AMB) | payer MEDICARE, SELFPAY ==
[2024-12-05 09:07] VITALS: BP 130/78; PULSE 77; RESP 16; TEMP 36.6; O2SAT 97; BMI 29.9
--- NOTE | 2024-12-05 09:07 | MHC.PC.OV ---
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: No Accompanied by: Self / Same As Patient Allergies Penicillins (PENICILLINS) Allergy (Unknown, Verified 12/05/24 09:14) UNKNOWN canagliflozin (Invokana) Adverse Reaction (Unknown, Verified 12/05/24 09:14) unknown statins Allergy (Unknown, Uncoded 08/16/24 11:05) muscle aches Medication List - Last Reconciled 12/05/24 by Jacob Martinez, MACHINE ENGRAVER-BC albuterol sulfate 90 mcg/actuation (Ventolin HFA) 1 inh inhalation QID PRN aspirin 81 mg PO DAILY K3-N2-G4-E5-C2-JL-B12-C 5 mg-5 mg-37.5 mg-25 mg-1 mg 1 capsule orally; daily 60 days cetirizine 10 mg PO DAILY PRN Contour Next Gen Meter (blood-glucose meter) Test blood sugars once a day NS Contour Next Test Strips (blood sugar diagnostic) Test blood sugar once a day NS empagliflozin (Jardiance) 5 mg (1/2 x 10 mg) PO DAILY ezetimibe 10 mg PO DAILY 90 days fluticasone propionate 50 mcg/actuation 1 spray intranasal DAILY hydrocortisone 2.5% 1 appl MI BID PRN 14 days inhalational spacing device (BreatheRite MDI Spacer) As directed with metered dose inhaler device lancets As directed tree times a day lancets (Microlet Lancet) Test blood sugar once a day losartan 50 mg PO DAILY 90 days magnesium oxide 400 mg PO DAILY 2 months MDD 400mg naproxen 500 mg PO Q12H PRN ondansetron 4 mg PO Q6H PRN pioglitazone 45 mg PO DAILY pregabalin 25 mg PO BEDTIME 90 days MDD 25mg sitagliptin phos-metformin 50-1,000 mg ER 1 tab PO BID 90 days vitamin B complex 1 tab PO DAILY 30 days Tobacco use date assessed: 12/05/24 Fall risk assessment: No Falls in past year Last assessed Fall Risk: 12/05/24 Dental Screening Dental Screen Date: 12/05/24 Did you have a dental visit in the last 12 months?: Yes Did you have a dental problem in the last 6 months where you did not have access to dental care?: No Was dental information given to patient?: Patient has dentist HPI Annual visit - see comments HPI Details History of Present Illness The patient is a 74-year-old female presenting with a physical exam. She denies any chest pain or shortness of breath but reports discomfort with inhalation in the left mid-lung region. She experiences intermittent neuropathy, with positive sensation noted during the monofilament test on both lower extremities, and her feet were intact. Her A1c level is 6.3, indicating good glycemic control. Preventative care measures include a scheduled mammogram and eye exam, which she attends regularly. Her next Cologuard test is due next year. Health Maintenance - Mammogram scheduled - Eye exam scheduled - Cologuard due next year Social History Review of Systems - Respiratory: Denies chest pain or shortness of breath, reports discomfort with inhalation in the left mid-lung region - Neurological: Reports intermittent neuropathy Physical Exam General: Cooperative, healthy appearing, comfortable, no acute distress and well developed Orientation: Patient oriented x3 Limitations: No limitations Head: Normal to inspection Ears: Hearing grossly normal bilaterally Nose: Normal external nose present Face and sinus: Normal facial exam Eyes: Appearance normal, both eyes and all related structures Neck: Normal visual inspection and Yes full ROM Respiratory: Normal respiratory effort and able to speak in complete sentences. Clear to auscultation bilaterally, slight discomfort with inhalation on left mid lung region Cardiovascular: Regular rate and rhythm. Normal S1 and S2, very faint systolic murmur GI: Normal to inspection. Soft to palpation and nontender Skin: No rashes or lesions noted Neuro: Patient oriented x3, intermittent neuropathy, positive sensation, use of monofilament to the left lower extremity and right lower extremity, feet were intact Extremities: Normal to inspection, feet were intact Results Plan 1. Discomfort With Inhalation In The Left Mid-Lung Region A chest X-ray will be obtained to further evaluate the discomfort with inhalation in the left mid-lung region. 2. Intermittent Neuropathy The patient is on pregabalin for neuropathy, which is well controlled. Continued monitoring and management of neuropathy symptoms will be maintained. Discussion Notes During the visit, we discussed obtaining a chest X-ray to evaluate the discomfort with inhalation in the left mid-lung region. We also reviewed the patient's current management of neuropathy with pregabalin, which is well controlled. Follow-up labs will be conducted in the near future to monitor her condition. Patient Instructions - Continue current medication regimen for neuropathy. - Follow up for a chest X-ray as discussed. - Schedule follow-up labs as planned. [facility], [facility] Medical History Generalized headaches Nonspecific low blood pressure reading Diabetic retinopathy Elevated hemidiaphragm Immunization refused Diabetes type 2, controlled Overweight (BMI 25.0-29.9) Dyslipidemia Essential hypertension Type 2 diabetes mellitus with unspecified complications Surgical History Hx of tubal ligation History of appendectomy Family History Father Heart disease Mother Heart disease Sister Breast cancer Social History Housing: Other Alcohol intake: never Patient Tobacco Use Status: Never used Tobacco e-Cigarette/Vaping Use: Never Used Second Hand Smoke Exposure: No service: No Current occupational status: employed 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 1. Little interest or pleasure in doing things: not at all 2. Feeling down, depressed, or hopeless: not at all 3. Trouble falling or staying asleep, or sleeping too much: not at all 4. Feeling tired or having little energy: not at all 5. Poor appetite or overeating: not at all 6. Feeling bad about yourself - or that you are a failure or have let yourself or your family down: not at all 7. Trouble concentrating on things, such as reading the newspaper or watching television: not at all 8. Moving or speaking so slowly that other people could have noticed. Or the opposite - being so fidgety or restless that you have been moving around a lot more than usual: not at all 9. Thoughts that you would be better off or of hurting yourself in some way: not at all Total score: 0 Depression Screening Interpretation: Negative Depression Screening Done: Yes 84189 - PHQ-9 Billing: Yes Source: Developed by Drs. Remy Castanon, Tabby Scott, Robert Reynolds and colleagues, with an educational fe from [employer]. Thrive Questionnaire Date Thrive assessed: 07/25/24 I am a: Patient What is your living situation today?: I choose not to answer this question Within the past 12 months, did the food you bought not last and you didn't have the money to get more?: Sometimes True Within the past 12 months, did you worry whether your food would run out before you got money to buy more?: Sometimes True Do you have trouble paying for medicines?: Yes Do you have trouble getting transportation to medical appointments?: No Do you have trouble paying your heating and electricity bill?: Yes Do you have trouble taking care of your child, family member or friend?: No Do you have trouble with day-to-day activities such as bathing, preparing meals, shopping, managing finances, etc.?: No Are you currently unemployed and looking for a job?: Yes Are you interested in more education?: Yes Currently or been in a relationship where the following occur: Choked THRIVE Score: 4 SHAWNEE-7 AMB Questionnaire SHAWNEE-7 Date SHAWNEE - 7 assessed: 12/05/24 Feeling nervous, anxious, or on edge: 1 = Several days Not being able to stop or control worryin = More than half the days Worrying too much about different things: 0 = Not at all Trouble relaxin = Several days Being so restless that it is hard to sit still: 0 = Not at all Becoming easily annoyed or irritable: 0 = Not at all Feeling afraid as if something awful might happen: 0 = Not at all Total SHAWNEE-7 score (0-4 normal; 5-9 mild; 10-14 moderate; 15-21 severe): 4 Source: Developed by Drs. Remy Castanon, Tabby Scott, Robert Reynolds and colleagues, with an educational fe from [employer]. SHAWNEE-7 Assessment Billing SHAWNEE-7 Assessment Tool: SHAWNEE-7 Assessment 96072 Physical exam (Primary Care) Vital Signs: Last Vital Signs Temp 97.8 F 12/05/24 09:07 Pulse 77 12/05/24 09:07 Resp 16 12/05/24 09:07 BP 130/78 12/05/24 09:07 Pulse Ox 97 12/05/24 09:07 Oxygen Delivery Method Room Air 12/05/24 09:07 BMI result Body Mass Index 29.9 Tobacco/Smoking Status: Tobacco use Status Tobacco use date assessed 12/05/24 12/05/24 09:09 Patient Tobacco Use Status Never used Tobacco 12/05/24 09:09 e-Cigarette/Vaping Use Never Used 12/05/24 09:09 PHQ-9: PHQ-9 Score PHQ-9: Total score 0 12/05/24 09:38 Depression Screening Interpretation: Negative Thrive Assessment: Date of Thrive Assessment Date Thrive assessed 07/25/24 12/05/24 09:09 Currently or been in a relationship where the following occur: Choked Results AMB Hemoglobin A1c AMB Hemoglobin A1c 6.3 % Last Edit by Ping Lawson MA on 12/05/24 09:34 Results Reviewed Results Reviewed: Laboratory Last Values Hgb A1c (Clinic) 6.3 % (4.0-6.0) H 12/05/24 09:30 Coding Level of Care Code Est Pt Level 3 (84457) Est Pt Prev Care >65y(80747) Diagnoses Diabetes E11.9 Vitamin D deficiency E55.9 Physical exam Z00.00 Chest discomfort R07.89 Additional Codes SHAWNEE-7 Assessment Billing - SHAWNEE-7 Assessment Tool: SHAWNEE-7 Assessment 40879 ([id number]) PHQ-9 - 73782 - PHQ-9 Billing: Yes ([id number]) Assessment & Plan Assessment & Plan (1) Diabetes: Code(s): E11.9 - Type 2 diabetes mellitus without complications Category: Medical (2) Vitamin D deficiency: Code(s): E55.9 - Vitamin D deficiency, unspecified Category: Medical (3) Physical exam: Code(s): Z00.00 - Encounter for general adult medical examination without abnormal findings Category: Medical (4) Chest discomfort: Comment: with inhalation Code(s): R07.89 - Other chest pain Category: Medical Plan . Orders: Orders Microalbumin, Random (w Creat) Today E11.9 - Type 2 diabetes mellitus without complications Vitamin D 25-OH Total Today E55.9 - Vitamin D deficiency, unspecified XR chest 2V Today R07.89 - Other chest pain AMB Hemoglobin A1c Today Z13.9 - Encounter for screening, unspecified Complete Blood Count Auto Diff Today E11.9 - Type 2 diabetes mellitus without complications Comprehensive [place]. Panel Fast Today E11.9 - Type 2 diabetes mellitus without complications TSH reflex Free T4 Today E11.9 - Type 2 diabetes mellitus without complications UA CC w/rflx Micro + Cult Today E11.9 - Type 2 diabetes mellitus without complications Lipid Panel Today E11.9 - Type 2 diabetes mellitus without complications
--- OUTSIDE RECORDS SUMMARY | 2024-12-05 09:33 | XMS_ITS | Continuity of Care Document ---
Author Organization [facility] [address] [address] [place] [address] Phone [phone] Care Team Providers Care Performance Makeup Artist Name Role Phone Jacob Martinez Care Team Information Power Plant Operator [phone] Problems Active Problems Provider Date Type 2 diabetes mellitus JUAN Walker Onse t: 03/29/2023 Dyslipidemia JUAN Walker Onset: 2023 Essential hypertension JUNA Walker Onset: 03/29/2023 Benign neoplasm of adrenal [...] Medications SIG Qnty Indications Ordering Provider Date Nlhbanlhlsoyx4qk Tablets 1 tablet by mouth at 11 pm 1tabs Damien Howe M.D. 03/29/2023 Yefzwkioro530vf Capsules Take 2 Capsules By Mouth AT Bedtime For 30 Days Jacob Martinez Rtnfgmfum91fm Tablets Take 1 Tablet By Mouth Daily Jacob Martinez Losartan Oyojovpkq03rr Tablets Take 1 Tablet By Mouth Daily Jacob Martinez Janumet [id number] Tablets ER 24HR Take 1 Tablet By Mouth Twice Daily Jacob Martinez Ncczsoztumo643yu Capsules Take 1 Capsule By Mouth Three Times Daily Vin Luna Pioglitazone TZO54er Tablets Take 1 Tablet By Mouth Daily Jacob Martinez Fluticasone Ukyurnzzty22sof/Act Suspension Shake Liquid And Use 1 [place] In Each Nostril Daily Jacob Martinez Vital Signs Date Vital Result Comment 03/29/2023 10:53am BP Systolic 110 mmHg BP Diastolic 60 mmHg Heart Rate 75 /min Height 62 inches 5'2 Weight 174.25 lb BMI (Body Mass Index) 31.9 kg/m2 Results Test Acquired Date Facility Test Result H/L Range Note Renin, Plasma Activity 04/14/2023 [facility] Renin, Plasma Activity 4.063 1 TSH 04/02/2023 [facility] TSH 0.59 uIU/mL (0.4-4.2 ) Free T4 04/02/2023 [facility] Free T4 1.14 ng/dL (0.70-1. 80) Anti Thyroid Peroxidase AB 04/02/2023 [facility] Anti Thyroid Peroxidase AB <9.0 IU/mL (<34) 2 Renin, Plasma Activity 04/02/2023 [facility] Renin, Plasma Activity Test not perform <SEE NOTE> 3 Aldosterone 04/02/2023 [facility] Aldosterone 4.6 4 Fract Plasma Metanephrines 04/02/2023 [facility] Plasma Normetanephrines 111.2 5 Plasma Metanephrines <25.0 6 Cortisol 04/02/2023 [facility] Cortisol 1.2 g/dL 7 1 Reference range: 0.1 67 to 5.380 Unit: ng/mL/hr (NOTE) This test was developed and its performance characteristics determined by [facility]. It has not been cleared or approved by the Food and Drug Administration. Test performed at [address] [address] The results are assa y dependent [...] developed and its performance characteristics determined by [facility]. It has not been cleared or approved by the Food and Drug Administration. Test performed at [address] [address] CORRECTED ON AT 1506: PREVIOUSLY REPORTED 4.4 Reference range: 0.0 to 30.0 Unit: ng/dL 5 Reference range: 0.0 to 285.2 Unit: pg/mL (NOTE) This test was developed and its performance characteristics determined by [facility]. It has not been cleared or approved by the Food and Drug Administration. 6 Reference range: 0.0 to 88.0 Unit: pg/mL (NOTE) This test was developed and its performance characteristics determined by [facility]. It has not been cleared or approved by the Food and Drug Administration. Test performed at [address] [address] Reference Range: 6-10 am: 6.0-18.4 ug/dL [...]
--- OUTSIDE RECORDS SUMMARY | 2024-12-05 09:33 | XMS_ITS | Patient Health Record ---
[facility] Address [address] [place] [address] Care Team Providers Care Hand Suture Winder Name Role Phone Robbi MAYER, Kymberly Ziegler Primary Care Provider Un available Neal Clayton Unavailable [phone] Allergies Allergen (clinical drug ingredient) Drug/Non Drug [...] disorder associated with type II diabetes mellitus (498865686) Diabetic - NIDDM/Neuropathy (250.60) Active confirmed Problem Hammer toe (797910862) Hammer toe (735.4) Active confirmed Problem Onychomycosis (816095471) Onychomycosis (110.1) Active confirmed Problem Pain in limb (20554229) Pain in Limb (729.5) Active confirmed Plan Of Treatment Pending Test Test Name Order Date [id number] NAIL, 6 OR MORE 08/15/2012 [id number] SKIN LESIONS, 2 TO 4 08/16/19 13 Insurance Providers Payer Name Payer Address Payer Phone Subscriber Number Group Number Insured Name Patient Relationship to Insured Coverage Start Date Coverage End Date Medicare [employer] [address] [place] [address] [id number] Kylah Lewis Self - patient is the insured 5 Medical (General) History Medical History History ICD Code Arthritis diabetes mellitus high blood pressure cholesterol Surgical History Surgery Date(Month/Year) appendectomy tubal surgery
== END 2024-12-05 10:01 | disposition home or self-care (01) ==
LOC: HO.HMCC 08:57
PROVIDERS: PCP Nurse Practitioner Family; Visit Provider Nurse Practitioner Family
DX: Z00.00 Encounter for general adult medical examination without abnormal findings (principal); E11.9 Type 2 diabetes mellitus without complications; E55.9 Vitamin D deficiency, unspecified; R07.89 Other chest pain

== ENCOUNTER 2024-12-05 08:56 | Outpatient (REF) | payer MEDICARE, SELFPAY ==
--- NOTE | ~2024-12-05 | XR_ITS ---
EXAMINATION: XR CHEST CLINICAL INFORMATION: R07.89 - Other chest pain COMPARISON: September 07, 2023. TECHNIQUE: PA and lateral views. FINDINGS: No consolidation, pleural effusion or pneumothorax. No hyperinflation. Cardiomediastinal silhouette size is normal with a round apex. Calcified plaque aortic arch. Multilevel thoracolumbar spondylosis. 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 XR/XR chest 2V IMPRESSION: No acute airspace disease. Multilevel spondylosis. Electronically signed by: Brant Mahmood MD 12/05/2024 10:16 AM EDT
[2024-12-05 13:48] LABS: MANUAL DIFF FLAG NO
[2024-12-05 13:53] LABS: Hematocrit 42.7 % (37.0-47.0); Hemoglobin 13.6 g/dl (12.0-16.0); Imm Gran Abs Auto 0.03 X10*3/uL (0.00-0.03); Imm Gran Pct Auto 0.4 % (0.0-0.4); Lymphocytes Absolute Auto 1.6 X10*3/uL (1.2-4.9); Mean Corpuscular HGB Conc 31.9 g/dl (31.0-35.0); Mean Corpuscular Hemoglobin 29.2 pg (27.0-33.0); Mean Corpuscular Volume 91.8 fL (80.0-98.0); NRBC Abs Auto 0.000 X10*3/uL (0.0-0.012); NRBC Pct Auto 0.0 /100WBC (0.0-0.2); Platelet Count 259 X10*3/uL (160-400); Red Blood Count 4.65 X10*6/uL (4.20-5.50); White Blood Count 6.7 X10*3/uL (4.8-10.8)
[2024-12-05 17:24] LABS: Alanine Aminotransferase 19 U/L (0-31); Albumin Level 4.3 g/dL (3.5-5.0); Alkaline Phosphatase 61 U/L (39-117); Anion Gap 13 (12-20); Aspartate Amino Transferase 30 U/L (5-31); Blood Urea Nitrogen 16 mg/dL (9-16); Calcium 9.8 mg/dL (8.4-10.2); Carbon Dioxide 28 mmol/L (22-29); Chloride 105 mmol/L (96-108); Cholesterol 172 mg/dL (<200); Estimated Glomerular Filt Rate 56; HDL Cholesterol 73 mg/dL (>40); Potassium 3.6 mmol/L (3.3-5.1); Sodium 142 mmol/L (135-145); Total Protein 7.2 g/dL (6.5-8.0); Triglycerides 77 mg/dL (<150)
== END 2024-12-05 08:57 | disposition home or self-care (01) ==
LOC: HO.HMGCX 08:56
PROVIDERS: PCP Nurse Practitioner Family; Visit Provider Nurse Practitioner Family
DX: Z00.00 Encounter for general adult medical examination without abnormal findings (principal); R07.89 Other chest pain; E11.9 Type 2 diabetes mellitus without complications; E55.9 Vitamin D deficiency, unspecified; Z79.82 Long term (current) use of aspirin; Z79.1 Long term (current) use of non-steroidal anti-inflammatories (NSAID); Z79.899 Other long term (current) drug therapy
CPT/HCPCS: 36415; 71046; 80053; 80061; 82306; 83036; 84443; 85025; 96127; 99212; 99397

== ENCOUNTER → 2024-12-05 10:06 | Outpatient (BNV) | payer MEDICARE, SELFPAY | PROVIDERS: PCP Nurse Practitioner Family; Visit Provider Radiology Diagnostic Radiology | DX: M47.814 Spondylosis without myelopathy or radiculopathy, thoracic region (principal) | CPT/HCPCS: 71046 ==

== ENCOUNTER 2024-12-29 09:08 | Outpatient (AMB) | payer MEDICARE, SELFPAY ==
--- NOTE | 2024-12-29 09:14 | A.OFFVIS_ITS ---
Vital Signs 12/29/24 09:17 Height 5 ft 3 in Weight 166 lb 2 oz BMI 29.4 BP 122/70 Blood Pressure Location Lt brachial Position Sitting Pulse 72 Pulse Source Pulse Oximeter Pulse Oximetry (%) 97 Oxygen Delivery Method Room Air Intake Visit Reasons: follow up (COMF.) Intake Note: Patient presents follow up DARRELL Medication. Compliance in chart(84/90days, >=4hrs-82%, Average Usage-5hr 19min, Med Pressure-7.3, Med Leaks-10.4, AHI-4.8). Accompanied by: Self / Same As Patient Allergies Penicillins (PENICILLINS) Allergy (Unknown, Verified 12/29/24 09:21) UNKNOWN canagliflozin (Invokana) Adverse Reaction (Unknown, Verified 12/29/24 09:21) unknown statins Allergy (Unknown, Uncoded 08/16/24 11:05) muscle aches HPI Comments Details: 74 y/o female presents for a f/u of DARRELL. DARRELL Compliance Report is reviewed with pt today. Total Avg use is 84/90 days and >4 hours 82%. Avg use is 5 hours and 19min. Med press 7.3cmH20 and Leaks can vary from 35 to 98 AHI is 4.8/hr. She washes her mask, rinses hoses, changes filters and fills machine with water. She keeps the tv on for white noise, gets up at 5am with 1bathroom break and takes her g-son to work, then falls back asleep. We discussed turning tv off and volume low for white noise . She notices the mask leaks are forceful, does not fit well on her nose, hold seal, with air escaping to the sides and would like to try a new mask, N30 I fit airtouch nasal pillows. She has urge incontinence, with frequency during the day, feels thirsty at night. Today AM she had discomfort like pulling in the chest with burning and acid reflux symptoms of belching, bloating, she drank water and went back to sleep then felt better. Her brother 88 year old passed Nov 2024, and her mood is low, she gets emotional upset then sobs. She has RLS symptoms bilaterally in hands, r.hand fingers feel numb, l. seldomly will go numb, she has tingling, cramps, and paresthesias, symptoms wakes her up at night. Lower extremity symptoms of neuropathy have improved since managing A1cs. She takes Pregablin 25mg only when aggravated by symptoms and this helps her sleep through the night. Denies morning headaches, n/v/ dizziness, vision changes, vertigo balance and gait difficulties. Diet is stable, socially active, plays games online and completes puzzles, visits grand daughter. [facility] Medical History Generalized headaches Nonspecific low blood pressure reading Diabetic retinopathy Elevated hemidiaphragm Immunization refused Diabetes type 2, controlled Overweight (BMI 25.0-29.9) Dyslipidemia Essential hypertension Type 2 diabetes mellitus with unspecified complications Surgical History Hx of tubal ligation History of appendectomy Family History Father Heart disease Mother Heart disease Sister Breast cancer Social History Housing: Other Alcohol intake: never Patient Tobacco Use Status: Never used Tobacco e-Cigarette/Vaping Use: Never Used Second Hand Smoke Exposure: No service: No Current occupational status: employed 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, 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 Gender identity: Female Cognitive needs: No Hearing needs: No Vision needs: Yes Female Reproductive History Menstrual Age of Menarche: 17 Review of Systems ENT Reports Normal hearing present Neuro Reports Normal hearing present Physical Exam Vital Signs: Last Vital Signs Pulse 72 12/29/24 09:17 BP 122/70 12/29/24 09:17 Pulse Ox 97 12/29/24 09:17 Oxygen Delivery Method Room Air 12/29/24 09:17 BMI result Body Mass Index 29.4 Const General: cooperative and comfortable Orientation/consciousness: patient oriented x3 Eyes Pupils: Equal, round and reactive pupils present Resp Effort & Inspection: normal respiratory effort and able to speak in complete sentences Neuro General: patient oriented x3 and moves all extremities Cranial nerves: Yes CN's II-XII intact bilaterally, Yes Facial sensation intact/muscles of mastication intact, Yes Equal, round and reactive pupils present, Yes Normal accommodation reflex present, Yes Bilaterally intact EOM present, Yes Nystagmus not present, Yes Normal facial strength present, Yes Midline tongue present, Yes Normal hearing present, Yes Ability to bilaterally rotate head present, Yes Ability to bilaterally elevate shoulders present and Yes Other cranial nerve findings present ([place]) Cognition (Neuro): normal cognition Motor exam (neuro): 5/5 motor strength present throughout, Pronator motor function not present, no tremor noted and Normal motor muscle tone present throughout Psych Appearance: grossly normal Mental Status: mental status grossly normal Speech and movement: Normal speech and movement present Affect: Sad affect present Attitude: cooperative Thought process: Normal thought process present Thought content: Normal thought content present Insight: Good insight present (Psych) Results Reviewed Results Reviewed: Compliance Data Assessment & Plan Assessment & Plan (1) DARRELL on CPAP: Code(s): G47.33 - Obstructive sleep apnea (adult) (pediatric) Category: Medical (2) Mild acid reflux: Code(s): K21.9 - Gastro-esophageal reflux disease without esophagitis Category: Medical (3) RLS (restless legs syndrome): Comment: She monitors sugars and controls her A1c twice a day and using bernadine and cinnamon water. Code(s): G25.81 - Restless legs syndrome Category: Medical (4) Bilateral hand numbness: Comment: CTS r/o with EMG/ NCS Code(s): R20.0 - Anesthesia of skin Category: Medical (5) Pain in thumb joint with movement of right hand: Comment: xray reviewed with patient today. Code(s): M25.541 - Pain in joints of right hand Category: Medical (6) Nocturnal leg cramps: Comment: She is on Lyrica, will send rx for NIDRA Code(s): G47.62 - Sleep related leg cramps Category: Medical Plan DARRELL continue cpap use as patient feels refreshed sleep with cpap use. will send rx for nasal pillows, airfit n30I, due to mask leaks. Patient Education: continue use of CPAP as patient has T2DM, and hypertension, #1 modifiable risk factor for CV events is good blood pressure control being managed by her PCP. Acid reflux start famotidine 20mg po daily for burning sensation in chest, belching and bloating, if symptoms worsen and or do not resolve, pt reminded for Chest discomfort, pain, must immediately go to the E/R to be evaluated and she confirms understanding this information. Bilateral hand numbness will send for EMG/ NCS she has RLS continue on lyrica 25mg po bedtime daily, will Send Rx for Nidra. Continue Magnesium 400 mg po at bedtime, B- vitamins as prescribed once daily. Orders: Orders NE nerve conduction velocity Today R20.0 - Anesthesia of skin NE electromyogram (EMG) Today R20.0 - Anesthesia of skin Medications: New [NIDRA Tonic Motion Device for RLS] As directed 2 ea 0RF Restless Legs Syndrome G25.81 - Restless legs syndrome famotidine 20 mg PO BEDTIME 90 tabs 0RF 3 months MDD 20mg K21.9 - Gastro- esophageal reflux disease without esophagitis Changed From pregabalin take one capsule daily at bedtime for Restless legs. 25 mg PO BEDTIME 90 days 90 caps 3RF restless legs MDD 25mg G25.81 - Restless legs syndrome To pregabalin take one capsule daily at bedtime for Restless legs. 25 mg PO ONCE 90 caps 3RF restless legs 90 days MDD 25mg G25.81 - Restless legs syndrome Patient Instructions: Sleep Hygiene provided: set a scheduled bedtime and wake time to help regulate the circadian rhythm and balance the release of pituitary hormones. Sleep in a dark room, temperatures below 68 degrees, and no devices n bed. Limit caffeinated products 6 hours prior to bed, and limit fluids 2-4 hours prior to bed. Gentle night yoga, diffusing essential oils, and playing soft music can be relaxing. Coding Level of Care Code Est Pt Level 4 (73826) Diagnoses DARRELL on CPAP G47.33 Mild acid reflux K21.9 RLS (restless legs syndrome) G25.81 Bilateral hand numbness R20.0 Pain in thumb joint with movement of right hand M25.541 Nocturnal leg cramps G47.62
[2024-12-29 09:17] VITALS: BP 122/70; PULSE 72; O2SAT 97; BMI 29.4
--- OUTSIDE RECORDS SUMMARY | 2024-12-29 09:47 | XMS_ITS | Continuity of Care Document ---
Author Organization [facility] [address] [place] [address] Phone [phone] Care Team Providers Care Motor Equipment Sergeant Name Role Phone Jacob Martinez Care Team Information Tin Cutter [phone] Problems Active Problems Provider Date Type 2 diabetes mellitus UJAN Walker Onse t: 03/29/2023 Dyslipidemia JUAN Walker [...] Medications SIG Qnty Indications Ordering Provider Date [id number] Tablets 1 tablet by mouth at 11 pm 1tabs Damien Howe M.D. 03/29/2023 [id number] Capsules Take 2 Capsules By Mouth AT Bedtime For 30 Days Jacob Martinez Fphgyaycr21hd Tablets Take 1 Tablet By Mouth Daily Jacob Martinez Losartan Bosrleauy35ij Tablets Take 1 Tablet By Mouth Daily Jacob Martinez Janumet [id number] Tablets ER 24HR Take 1 Tablet By Mouth Twice Daily Jacob Martinez Sxvsmjnwjvo850ha Capsules Take 1 Capsule By Mouth Three Times Daily Vin Luna Pioglitazone ODZ75qi Tablets Take 1 Tablet By Mouth Daily Jacob Martinez Fluticasone Tddlxtluvv63zrl/Act Suspension Shake Liquid And Use 1 [place] In Each Nostril Daily Jacob Martinez Vital Signs Date Vital Result Comment 03/29/2023 10:53am BP Systolic 110 mmHg BP Diastolic 60 mmHg Heart Rate 75 /min Height 62 inches 5'2 Weight 174.25 lb BMI (Body Mass Index) 31.9 kg/m2 Results Test Acquired Date Facility Test Result H/L Range Note Renin, Plasma Activity 04/14/2023 [facility] Renin, Plasma Activity 4.063 1 TSH 04/02/2023 [facility] TSH 0.59 uIU/mL (0.4-4.2 ) Free T4 04/02/2023 [facility] Free T4 1.14 ng/dL (0.70-1. 80) Anti Thyroid Peroxidase AB 04/02/2023 [facility] Anti Thyroid Peroxidase AB <9.0 IU/mL (<34) 2 Renin, Plasma Activity 04/02/2023 [facility] Renin, Plasma Activity Test not perform <SEE NOTE> 3 Aldosterone 04/02/2023 [facility] Aldosterone 4.6 4 Fract Plasma Metanephrines 04/02/2023 [facility] Plasma Normetanephrines 111.2 5 Plasma Metanephrines <25.0 6 Cortisol 04/02/2023 [facility] Cortisol 1.2 g/dL 7 1 Reference range: 0.1 67 to 5.380 Unit: ng/mL/hr (NOTE) This test was developed and its performance characteristics determined by [facility]. It has not been cleared or approved by the Food and Drug Administration. Test performed at [address] [address] The results are assa y dependent [...] developed and its performance characteristics determined by [facility]. It has not been cleared or approved by the Food and Drug Administration. Test performed at [address] [address] CORRECTED ON AT 1506: PREVIOUSLY REPORTED 4.4 Reference range: 0.0 to 30.0 Unit: ng/dL 5 Reference range: 0.0 to 285.2 Unit: pg/mL (NOTE) This test was developed and its performance characteristics determined by [facility]. It has not been cleared or approved by the Food and Drug Administration. 6 Reference range: 0.0 to 88.0 Unit: pg/mL (NOTE) This test was developed and its performance characteristics determined by [facility]. It has not been cleared or approved by the Food and Drug Administration. Test performed at [address] [address] 7 Reference Range: 6-10 am: 6.0-18.4 ug/dL [...]
== END 2024-12-29 10:03 | disposition home or self-care (01) ==
LOC: HO.HSMS 09:10
PROVIDERS: PCP Nurse Practitioner Family; Visit Provider Physician Assistant Medical
DX: G47.33 Obstructive sleep apnea (adult) (pediatric) (principal); K21.9 Gastro-esophageal reflux disease without esophagitis; G25.81 Restless legs syndrome; R20.0 Anesthesia of skin; M25.541 Pain in joints of right hand; G47.62 Sleep related leg cramps
CPT/HCPCS: 99214

== ENCOUNTER → 2024-12-29 09:08 | Outpatient (BNVA) | payer MEDICARE, SELFPAY | PROVIDERS: PCP Nurse Practitioner Family; Visit Provider Physician Assistant Medical | DX: G47.33 Obstructive sleep apnea (adult) (pediatric) (principal); Z99.89 Dependence on other enabling machines and devices; K21.9 Gastro-esophageal reflux disease without esophagitis; G25.81 Restless legs syndrome; R20.0 Anesthesia of skin; M25.541 Pain in joints of right hand; G47.62 Sleep related leg cramps | CPT/HCPCS: 99212 ==